=== PATIENT | female | born 1995 ===

== ENCOUNTER 2020-11-24 11:21 | Emergency (ER) | payer OTHER, SELFPAY ==
[2020-11-24 11:32] VITALS: BP 133/76; PULSE 76; RESP 20; TEMP 36.5; O2SAT 98; BMI 45.9
--- NOTE | 2020-11-24 11:38 | ED.CHESTPAIN ---
HPI - Chest Pain General Chief Complaint: Chest Pain Stated Complaint: chest pain Time Seen by Provider: 11/24/20 11:38 Source: patient Mode of arrival: ambulatory Limitations: no limitations History of Present Illness HPI narrative: 25-year-old female who reports history of pulmonary embolism diagnosed several months back at [facility] she was started on Eliquis b.i.d. states she was taking as instructed she saw her primary care doctor last week advised her to take Eliquis once a day instead of twice a week and since then she has been having pain in the left-sided chest. States she is worried that she might have another blood clot. Pain is reproducible. Does report that she is relatively anxious about changing her dose. MD complaint: chest pain Onset (ago): week(s) Timing of current episode: episodic Prior episodes: Yes Pain location: left chest Pain radiation: none Severity: mild Quality: tightness Treatment prior to arrival: none Related Data Home Medications Medication Instructions Recorded Confirmed apixaban 5 mg PO BID 11/24/20 11/24/20 Allergies Allergy/AdvReac Type Severity Reaction Status Date / Time almond [ALMONDS] Allergy Severe THROAT Verified 11/24/20 13:59 SWELLING moore [CHERRIES] Allergy Mild ITCHY Verified 11/24/20 13:59 methylphenidate Allergy Unknown UNKNOWN Verified 11/24/20 13:59 [From RITALIN] Review of Systems Review of Systems: Constitutional: No Weight loss, No Fever, No Chills, No Night Sweats, No Fatigue, No Malaise ENT/Mouth: No Hearing loss, No Ear Pain, No Nasal Congestion, No Sinus Pain, No Hoarseness, No sore throat, No Rhinorrhea, No Swallowing Difficulty Eyes: No Eye Pain, No Swelling, No Redness, No Foreign Body, No Discharge, No Vision Changes Cardiovascular: + Chest Pain, No SOB, No Dyspnea on Exertion, No Orthopnea, No Edema, No Palpitations Respiratory: No Cough, No Sputum, No Wheezing, No Smoke Exposure, No Dyspnea Gastrointestinal: No Nausea, No Vomiting, No Diarrhea, No Constipation, No abdominal Pain Genitourinary: no irregular bleeding, No Dysuria, No Urinary Frequency, No Hematuria, No Urinary Incontinence, No Urgency, No Flank Pain Musculoskeletal: No joint pain, No Myalgias, No Joint Swelling Skin: No Skin Lesions, No rash Neuro: No Weakness, No Numbness, No Paresthesias, No Loss of Consciousness, No Dizziness, No Headache Psych: + Anxiety/Panic, No Depression, No SI/HI/AH/VH, No Social Issues Heme/Lymph: No Bruising, No Bleeding,No Lymphadenopathy Endocrine: No Polyuria, No Polydipsia, No Temperature Intolerance Yes all other systems are reviewed and are negative [facility] Past Medical History Medical History (Updated 11/24/20 @ 15:17 by Dutch Castillo NP) Asthma Endometriosis Pulmonary embolism Social History Social History Alcohol intake: never Smoking Status: Never smoker Use of substances other than those prescribed or required for medical reasons: No Advance Directives: No Advance Directives Information Provided: No Physical Exam Vital Signs: Vital Signs: Last Vital Signs Temp 97.7 F 11/24/20 11:32 Pulse 81 11/24/20 13:57 Resp 20 11/24/20 13:57 BP 138/82 11/24/20 13:57 Pulse Ox 97 11/24/20 13:57 Body Mass Index 45.9 Reviewed Const: General: cooperative and healthy appearing; No acute distress or intoxicated appearing Nutritional Appearance: average body habitus Orientation/consciousness: patient oriented x3 HENMT: Head: Yes normal to inspection Ears: hearing grossly normal bilaterally Eyes: General: appearance normal, both eyes and all related structures Visual Gillespie: normal visual gillespie by confrontation Neck: Neck: Yes normal visual inspection, No positive Brudzinski's sign, No positive Kernig's sign and No tender Thyroid: Thyroid normal Chest: Chest palpation & inspection: normal inspection of the chest Resp: Effort & Inspection: normal respiratory effort Auscultation: clear to auscultation bilaterally Cardio: Jugular venous distension: no JVD Rhythm: regular rhythm Heart sounds: S1 normal heart sound present and S2 normal heart sound present GI: Inspection: Yes normal to inspection Percussion: Yes normal to percussion Auscultation: normal bowel sounds : General: Yes no CVA tenderness Back/Spine/Pelvis: Back: no CVA tenderness Skin: General skin exam: no rashes or lesions noted Neuro: General: patient oriented x3 Extrem: General: Yes normal to inspection MDM - Chest Pain MDM Narrative Medical decision making narrative: Has been resting comfortable. Normal sinus rhythm on bedside monitor. Labs unremarkable. Troponin negative. CTA of the chest done given her prior history unchanged her Eliquis and this was negative. Will continue her and suggested dose and follow up with her primary care doctor for therapy management. Offers no other complaints. Stable for discharge. Differential Diagnosis Differential diagnosis: Likely atypical chest pain, costochondritis and chest pain; Unlikely fracture of rib, pneumothorax, stable angina, unstable angina pectoris, st elevation myocardial infarction and biliary colic Differential diagnosis: Pulmonary embolism Medical Records Data Attestation: I reviewed the patient's medical records. Lab Data Attestation: I reviewed the patient's lab results. Result diagrams: 11/24/20 12:24 11/24/20 12:24 Labs: Lab Results 11/24/20 11/24/20 11/24/20 Range/Units 12:22 12:22 12:24 WBC 6.2 (4.8-10.8) X10*3/uL RBC 4.68 (4.20-5.50) X10*6/uL Hgb 13.2 (12.0-16.0) g/dl Hct 41.4 (37-47) % MCV 88.5 (80-98) fL MCH 28.2 (27.0-33.0) pg MCHC 31.9 (31.0-35.0) g/dl RDW 12.3 (11.0-16.0) % Plt Count 279 (160-400) X10*3/uL MPV 10.6 (9.4-12.3) fL Immature Gran % (Auto) 0.2 (0.0-0.4) % Neut % (Auto) 56.9 (45-73) % Lymph % (Auto) 34.6 (20-40) % [place] % (Auto) 6.7 (2-11) % Eos % (Auto) 1.3 (0-4) % Baso % (Auto) 0.3 (0-2) % Lymph # (Auto) 2.2 (1.2-4.9) X10*3/uL [place] # (Auto) 0.4 (0.1-1.2) X10*3/uL Eos # (Auto) 0.1 (0.0-0.4) X10*3/uL Baso # (Auto) 0.0 (0.0-0.2) X10*3/uL Abs Immat Gran (auto) 0.01 (0.00-0.03) X10*3/uL Absolute Neuts (auto) 3.6 (2.0-8.3) X10*3/uL Absolute Nucleated RBC 0.000 (0.0-0.012) X10*3/uL Nucleated RBC % (auto) 0.0 (0.0-0.2) /100WBC PT (10.8-13.0) SEC INR (0.9-1.1) APTT (24.1-38.0) SEC Sodium (135-145) mmol/L Potassium (3.3-5.1) mmol/l Chloride (96-108) mmol/L Carbon Dioxide (22-29) mmol/L Anion Gap (12-20) BUN (9-16) mg/dL Creatinine (0.5-1.4) mg/dL Estim Creat Clear Calc Estimated GFR Random Glucose (60-115) mg/dL Calcium (8.4-10.2) mg/dL Total Bilirubin (0.0-1.0) mg/dL AST (5-31) U/L ALT (0-31) U/L Alkaline Phosphatase (39-117) U/L Troponin I High Sens (<3.5-17.0) ng/L Total Protein (6.5-8.0) g/dL Albumin (3.5-5.0) g/dL Urine Color YELLOW Urine Appearance HAZY Urine pH 5.5 (5.0-8.0) Ur Specific [place] >= 1.030 H (1.005-1.025) Urine Protein NEG (NEG-TRACE) MG/DL Urine Glucose (UA) NEG (NEG) MG/DL Urine Ketones NEG (NEG) MG/DL Urine Blood NEG (NEG) Urine Nitrite NEG (NEG) Ur Leukocyte Esterase NEG (NEG) Urine RBC 0-2 (0) /HPF Urine WBC 0-2 (0-4) /HPF Ur Squamous Epith Cells TRACE /LPF Urine Bacteria NONE /LPF Urine Mucus 2+ /LPF Urine Test NEGATIVE (NEGATIVE) COVID-19 (OSCAR) Negative (Negative) COVID-19 Clin Com See Note 11/24/20 11/24/20 11/24/20 Range/Units 12:24 12:24 12:24 WBC (4.8-10.8) X10*3/uL RBC (4.20-5.50) X10*6/uL Hgb (12.0-16.0) g/dl Hct (37-47) % MCV (80-98) fL MCH (27.0-33.0) pg MCHC (31.0-35.0) g/dl RDW (11.0-16.0) % Plt Count (160-400) X10*3/uL MPV (9.4-12.3) fL Immature Gran % (Auto) (0.0-0.4) % Neut % (Auto) (45-73) % Lymph % (Auto) (20-40) % [place] % (Auto) (2-11) % Eos % (Auto) (0-4) % Baso % (Auto) (0-2) % Lymph # (Auto) (1.2-4.9) X10*3/uL [place] # (Auto) (0.1-1.2) X10*3/uL Eos # (Auto) (0.0-0.4) X10*3/uL Baso # (Auto) (0.0-0.2) X10*3/uL Abs Immat Gran (auto) (0.00-0.03) X10*3/uL Absolute Neuts (auto) (2.0-8.3) X10*3/uL Absolute Nucleated RBC (0.0-0.012) X10*3/uL Nucleated RBC % (auto) (0.0-0.2) /100WBC PT 15.1 H (10.8-13.0) SEC INR 1.3 H (0.9-1.1) APTT 41.7 H (24.1-38.0) SEC Sodium 141 (135-145) mmol/L Potassium 4.3 (3.3-5.1) mmol/l Chloride 104 (96-108) mmol/L Carbon Dioxide 28 (22-29) mmol/L Anion Gap 13 (12-20) BUN 16 (9-16) mg/dL Creatinine 0.81 (0.5-1.4) mg/dL Estim Creat Clear Calc 121.9 Estimated GFR > 60 Random Glucose 114 (60-115) mg/dL Calcium 8.9 (8.4-10.2) mg/dL Total Bilirubin 1.1 H (0.0-1.0) mg/dL AST 36 H (5-31) U/L ALT 51 H (0-31) U/L Alkaline Phosphatase 61 (39-117) U/L Troponin I High Sens < 3.5 (<3.5-17.0) ng/L Total Protein 6.6 (6.5-8.0) g/dL Albumin 3.7 (3.5-5.0) g/dL Urine Color Urine Appearance Urine pH (5.0-8.0) Ur Specific [place] (1.005-1.025) Urine Protein (NEG-TRACE) MG/DL Urine Glucose (UA) (NEG) MG/DL Urine Ketones (NEG) MG/DL Urine Blood (NEG) Urine Nitrite (NEG) Ur Leukocyte Esterase (NEG) Urine RBC (0) /HPF Urine WBC (0-4) /HPF Ur Squamous Epith Cells /LPF Urine Bacteria /LPF Urine Mucus /LPF Urine Test (NEGATIVE) COVID-19 (OSCAR) (Negative) COVID-19 Clin Com Imaging Data CT chest PE rule out: Radiologist's impression: José Miguel Rasmussen 25 F [address] Scan ReportSigned Patient: Benji Rasmussen#: [id number]: 1995Acct:[id number]/Sex: 25 / FADM Date: 11/24/20Loc: [address]: Ordering Physician: Dutch Castillo NP Date of Service: 11/24/20 Procedure(s): CT angio chest PE protocol Accession Number(s): [id number] 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 Subsequently, multidetector volumetric imaging was performed from the thoracic inlet to below the diaphragms following the administration of 65 mL Omnipaque 350 intravenous contrast. No contrast reaction reported Sagittal, coronal, and MIP oblique sagittal reformatted images were obtained on the CT workstation, uploaded to PACS, and reviewed. This CT examination was performed using dose optimization techniques as appropriate, variously including the following: *Automated exposure control *Adjustment of mA and/or kV according to patient size (this includes techniques or standardized protocols for targeted exams where dose is matched to indication/reason for exam; i.e. extremities or head) *Use of iterative reconstruction technique Total exam dose-length product 4-4 mGy-cm FINDINGS: QUALITY OF STUDY/CONTRAST BOLUS: Satisfactory. PULMONARY ARTERIES: No central or segmental pulmonary emboli. THORACIC AORTA: No aneurysm or dissection. LUNG: No focal consolidation, nodules or masses. PLEURA: No pleural effusion or pneumothorax. MEDIASTINUM: Normal heart size. No pericardial effusion. No hilar or mediastinal lymphadenopathy. No evidence of septal bowing or right heart strain. CHEST WALL/AXILLA: No axillary or internal mammary lymphadenopathy. OSSEOUS STRUCTURES: No acute or suspicious osseous abnormality. UPPER ABDOMEN: The liver and spleen are not completely imaged but appear prominent. No reflux of contrast into the hepatic veins to suggest elevated right heart pressures. CT/CT angio chest PE protocol IMPRESSION: No evidence of pulmonary embolism. VTE: negative Dictated By:LUIS EDUARDO CORDERO MDSigned By:<Electronically signed by LUIS EDUARDO CORDERO MD in OV>11/24/20 1411 DD/ 1139TD/TT: Data Communications Technician: KANDACE ECG Data ECG #1: Interpretation: Normal sinus rhythm Normal ECG When compared with ECG of 19-APR-2009 09:57, PREVIOUS ECG IS PRESENT Discharge Plan Discharge Clinical Impression: Atypical chest pain Patient Disposition: Home, Self-Care Instructions: Chest Pain (ED) Additional Instructions: Chest CT SCAN did not show evidence of pulmonary embolism. Taking medication prescribed Follow up with primary care doctor as planned Return if any concerns or worsening symptoms Thank you Prescriptions: No Action apixaban 5 mg Tablet 5 mg PO BID RF: 0 Referrals: Praneeth Corbett MD [Primary Care Provider] - 1 week
--- NOTE | 2020-11-24 11:40 | ECG_ITS ---
Test Reason : CHEST PAIN Blood Pressure : / mmHG Vent. Rate : 079 BPM Atrial Rate : 079 BPM P-R Int : 160 ms QRS Dur : 088 ms QT Int : 368 ms P-R-T Axes : 014 010 040 degrees QTc Int : 421 ms Normal sinus rhythm Normal ECG When compared with ECG of 19-APR-2009 09:57, No significant changes seen Referred By: Dutch Castillo Electronically Signed By:RANDALL DIEHL
[2020-11-24 12:30] VITALS: BP 123/77; PULSE 78; RESP 24; O2SAT 95
[2020-11-24 12:32] LABS: MANUAL DIFF FLAG NO
[2020-11-24 12:40] LABS: Basophils Percent Auto 0.3 % (0-2); Eosinophils Absolute Auto 0.1 X10*3/uL (0.0-0.4); Eosinophils Percent Auto 1.3 % (0-4); Hematocrit 41.4 % (37-47); Hemoglobin 13.2 g/dl (12.0-16.0); Imm Gran Abs Auto 0.01 X10*3/uL (0.00-0.03); Imm Gran Pct Auto 0.2 % (0.0-0.4); Lymphocytes Absolute Auto 2.2 X10*3/uL (1.2-4.9); Lymphocytes Percent Auto 34.6 % (20-40); Mean Corpuscular HGB Conc 31.9 g/dl (31.0-35.0); Mean Corpuscular Hemoglobin 28.2 pg (27.0-33.0); Mean Corpuscular Volume 88.5 fL (80-98); Mean Platelet Volume 10.6 fL (9.4-12.3); Monocytes Absolute Auto 0.4 X10*3/uL (0.1-1.2); Monocytes Percent Auto 6.7 % (2-11); Neutrophils Absolute Auto 3.6 X10*3/uL (2.0-8.3); Neutrophils Percent Auto 56.9 % (45-73); Platelet Count 279 X10*3/uL (160-400); Red Blood Count 4.68 X10*6/uL (4.20-5.50); Red Cell Distribution Width 12.3 % (11.0-16.0); White Blood Count 6.2 X10*3/uL (4.8-10.8)
[2020-11-24 12:45] LABS: INTERNATIONAL NORM RATIO 1.3 (0.9-1.1); Prothrombin Time 15.1 SEC (10.8-13.0)
[2020-11-24 12:47] LABS: Partial Thromboplastin Time 41.7 SEC (24.1-38.0)
[2020-11-24 12:56] LABS: Glucose Urine UA NEG (NEG); Leukocyte Esterase Urine NEG (NEG); Nitrite Urine NEG (NEG); PH 5.5 (5.0-8.0); Specific Gravity - Urine >= 1.030 (1.005-1.025); Urine Blood NEG (NEG); Urine Ketones NEG (NEG); Urine Protein NEG (NEG-TRACE)
[2020-11-24 12:57] LABS: Appearance Urine HAZY; Color Urine YELLOW
[2020-11-24 12:58] LABS: UPreg QC Valid YES; Urine Pregnancy NEGATIVE (NEGATIVE)
[2020-11-24 13:00] LABS: COVID-19 Test Negative (Negative); IDNOW Serial# 9DD0AD1C
[2020-11-24 13:07] LABS: Mucus Urine 2+ /LPF; RBC Urine 0-2 /HPF (0); Squamous Epithelial Cell Urine TRACE /LPF; WBC Urine 0-2 /HPF (0-4)
[2020-11-24 13:18] LABS: Glucose Random 114 mg/dL (60-115)
[2020-11-24 13:19] LABS: Alanine Aminotransferase 51 U/L (0-31); Albumin Level 3.7 g/dL (3.5-5.0); Alkaline Phosphatase 61 U/L (39-117); Anion Gap 13 (12-20); Aspartate Amino Transferase 36 U/L (5-31); Bilirubin Total 1.1 mg/dL (0.0-1.0); Blood Urea Nitrogen 16 mg/dL (9-16); Calcium 8.9 mg/dL (8.4-10.2); Carbon Dioxide 28 mmol/L (22-29); Chloride 104 mmol/L (96-108); Creatinine Clr Calc Pharmacy 121.9; Estimated Glomerular Filt Rate > 60; Potassium 4.3 mmol/l (3.3-5.1); Sodium 141 mmol/L (135-145); Total Protein 6.6 g/dL (6.5-8.0); Troponin-I High Sensitivity < 3.5 ng/L (<3.5-17.0)
--- NOTE | 2020-11-24 13:56 | PC.NURSE ---
Awaiting results of CTA. Pt appears comfortable at this time. VSS
[2020-11-24 13:57] VITALS: BP 138/82; PULSE 81; RESP 20; O2SAT 97
[2020-11-24] MEDS: iohexoL 350 MG/ML 100 ML INFUS..BTL 65 ML IV (13:58)
== END 2020-11-24 15:37 | disposition home or self-care (01) ==
PROVIDERS: Nurse Practitioner Primary Care; Emergency Provider Emergency Medicine; PCP Pediatrics
DX: R07.89 Other chest pain (principal); Z20.822 Contact with and (suspected) exposure to COVID-19; Z79.899 Other long term (current) drug therapy
CPT/HCPCS: 36415; 71275; 80053; 81001; 81025; 84484; 85025; 85610; 85730; 87635; 93005; 99284; Q9967

== ENCOUNTER 2021-03-18 09:49 | Emergency (ER) | payer MEDICAID, SELFPAY ==
--- NOTE | ~2021-03-18 | XR_ITS ---
EXAMINATION: XR CHEST CLINICAL INFORMATION: Weakness COMPARISON: Previous chest CTA November 2020 TECHNIQUE: Frontal view of the chest was obtained. FINDINGS: The cardiac and mediastinal contours are normal. The lung volumes are low. The lungs are clear. There is no pleural effusion or pneumothorax. Bony structures are unremarkable. XR/XR chest 1V IMPRESSION: No evidence for acute disease in the chest.
--- NOTE | 2021-03-18 10:12 | ECG_ITS ---
Test Reason : SOB Blood Pressure : / mmHG Vent. Rate : 083 BPM Atrial Rate : 083 BPM P-R Int : 168 ms QRS Dur : 090 ms QT Int : 366 ms P-R-T Axes : 044 000 038 degrees QTc Int : 430 ms Normal sinus rhythm Normal ECG When compared with ECG of 24-NOV-2020 12:09, No significant change was found Referred By: Kezia Gerber Electronically Signed By:ELISE CIFUENTES MD
--- NOTE | 2021-03-18 10:14 | ED.WEAKNESS ---
HPI - Weakness General Chief complaint: Dyspnea Stated complaint: MULTIP COMPLAINTS Time Seen by Provider: 03/18/21 10:02 Source: patient Mode of arrival: ambulatory Limitations: no limitations History of Present Illness HPI Narrative: 25 yo female with hx of PE - on eliquis did miss one day 2 weeks ago was at work this AM - felt shaky, ate breakfast felt short of breath in her mask, staff checked HR in 90s, and BP 140/90 Complaint: generalized weakness Onset (ago): hour(s) (last hour) Duration: now resolved Location: E and RUE Migration: none Severity: moderate Quality: tingling Relieving factors: none Exacerbating factors: none Associated symptoms: other (weakness, shortness of breath, rapid HR in 90s) Related Data Home Medications Medication Instructions Recorded Confirmed apixaban 5 mg PO BID 11/24/20 11/24/20 Allergies Allergy/AdvReac Type Severity Reaction Status Date / Time almond [ALMONDS] Allergy Severe THROAT Verified 03/18/21 10:50 SWELLING moore [CHERRIES] Allergy Mild ITCHY Verified 03/18/21 10:50 methylphenidate Allergy Unknown UNKNOWN Verified 03/18/21 10:50 [From RITALIN] Review of Systems Review of Systems: Constitutional : No Weight loss, No Fever, No Chills ENT/Mouth : No sore throat, No Rhinorrhea Eyes: No Eye Pain, No Swelling Cardiovascular : no Chest Pain, pos SOB, no Dyspnea on Exertion, No Orthopnea, No Edema, No Palpitations Respiratory : No Cough, No Sputum Gastrointestinal : pos Nausea, No Vomiting, No Diarrhea, No abdominal Pain, No Hematochezia, No Melena Genitourinary : No Dysuria, No Urinary Frequency Musculoskeletal : No joint pain, No Myalgias, No Joint Swelling Skin : No Skin Lesions, No rash Neuro : pos Weakness, No Numbness, No Dizziness, No Headache, pos tingling Psych : No Anxiety/Panic, No Depression Heme/Lymph: No Bruising, No Lymphadenopathy Endocrine : No Polyuria, No Polydipsia All other systems reviewed and are negative PMFSH Past Medical History Attestation statement: The following information was validated with the patient. Medical History Asthma Endometriosis Pulmonary embolism Surgical History History of placement of ear tubes Family History Family History (Updated 12/01/20 @ 12:08 by Deidra Powell REPLACED BY [facility]) Father No problems noted. Mother No problems noted. Social History Social History Alcohol intake: never Smoking Status: Never smoker Use of substances other than those prescribed or required for medical reasons: No Advance Directives: No Advance Directives Information Provided: No Patient : No Physical Exam Vital Signs: Vital Signs: Last Vital Signs Temp 97.7 F 03/18/21 10:46 Pulse 80 03/18/21 11:15 Resp 20 03/18/21 10:46 BP 100/59 L 03/18/21 11:15 Pulse Ox 98 03/18/21 10:46 Body Mass Index 44.4 Appearance: Alert. Oriented X3. No acute distress. Eyes: Pupils equal, round and reactive to light. ENT: Pharynx normal. Neck: Normal inspection. Neck supple. CVS: Normal heart rate and rhythm. Pulses normal. Respiratory: No respiratory distress. Breath sounds normal. Abdomen: Soft and nontender. Skin: Skin warm and dry. Normal skin color. Normal skin turgor. Extremities: No lower extremity edema. No calf ttp Neuro: Oriented X 3. No motor deficit. No sensory deficit. Course Course Course Narrative: no acute findings at baseline stable for DC MDM - Weakness MDM Narrative Medical decision making narrative: 25 yo female felt weird at work tingling hands, weak all over, HR 90 BP 140, doubt ACS/PE did miss one dose but that was 2 weeks ago - at this time not toxic on her phone, HR in 60s BP stable - EKG, labs, ortho VS if negative will DC home with PCP follow up Lab Data Result diagrams: 03/18/21 10:38 03/18/21 10:38 Labs: Lab Results 03/18/21 03/18/21 03/18/21 Range/Units 10:38 10:38 10:38 WBC 7.5 (4.8-10.8) X10*3/uL RBC 5.06 (4.20-5.50) X10*6/uL Hgb 14.3 (12.0-16.0) g/dl Hct 43.9 (37-47) % MCV 86.8 (80-98) fL MCH 28.3 (27.0-33.0) pg MCHC 32.6 (31.0-35.0) g/dl RDW 14.5 (11.0-16.0) % Plt Count 239 (160-400) X10*3/uL MPV 11.0 (9.4-12.3) fL Immature Gran % (Auto) 0.1 (0.0-0.4) % Neut % (Auto) 52.9 (45-73) % Lymph % (Auto) 36.2 (20-40) % [place] % (Auto) 8.5 (2-11) % Eos % (Auto) 1.9 (0-4) % Baso % (Auto) 0.4 (0-2) % Lymph # (Auto) 2.7 (1.2-4.9) X10*3/uL [place] # (Auto) 0.6 (0.1-1.2) X10*3/uL Eos # (Auto) 0.1 (0.0-0.4) X10*3/uL Baso # (Auto) 0.0 (0.0-0.2) X10*3/uL Abs Immat Gran (auto) 0.01 (0.00-0.03) X10*3/uL Absolute Neuts (auto) 4.0 (2.0-8.3) X10*3/uL Absolute Nucleated RBC 0.000 (0.0-0.012) X10*3/uL Nucleated RBC % (auto) 0.0 (0.0-0.2) /100WBC PT 13.7 H (10.8-13.0) SEC INR 1.2 H (0.9-1.1) APTT 43.8 H (24.1-38.0) SEC Sodium 137 (135-145) mmol/L Potassium 4.3 (3.3-5.1) mmol/L Chloride 107 (96-108) mmol/L Carbon Dioxide 26 (22-29) mmol/L Anion Gap 8 L (12-20) BUN 23 H (9-16) mg/dL Creatinine 0.72 (0.5-1.4) mg/dL Estim Creat Clear Calc 139.7 Estimated GFR > 60 Random Glucose 84 (60-115) mg/dL Calcium 8.9 (8.4-10.2) mg/dL Magnesium 2.2 (1.6-2.6) mg/dL Total Bilirubin 0.9 (0.0-1.0) mg/dL Direct Bilirubin 0.3 (0.0-0.5) mg/dL AST 21 D (5-31) U/L ALT 34 H (0-31) U/L Alkaline Phosphatase 67 (39-117) U/L Troponin I High Sens (<3.5-17.0) ng/L Total Protein 7.0 (6.5-8.0) g/dL Albumin 4.1 (3.5-5.0) g/dL Lipase 32 (8-78) U/L TSH 1.26 (0.32-4.0) uIU/mL 03/18/21 Range/Units 10:38 WBC (4.8-10.8) X10*3/uL RBC (4.20-5.50) X10*6/uL Hgb (12.0-16.0) g/dl Hct (37-47) % MCV (80-98) fL MCH (27.0-33.0) pg MCHC (31.0-35.0) g/dl RDW (11.0-16.0) % Plt Count (160-400) X10*3/uL MPV (9.4-12.3) fL Immature Gran % (Auto) (0.0-0.4) % Neut % (Auto) (45-73) % Lymph % (Auto) (20-40) % [place] % (Auto) (2-11) % Eos % (Auto) (0-4) % Baso % (Auto) (0-2) % Lymph # (Auto) (1.2-4.9) X10*3/uL [place] # (Auto) (0.1-1.2) X10*3/uL Eos # (Auto) (0.0-0.4) X10*3/uL Baso # (Auto) (0.0-0.2) X10*3/uL Abs Immat Gran (auto) (0.00-0.03) X10*3/uL Absolute Neuts (auto) (2.0-8.3) X10*3/uL Absolute Nucleated RBC (0.0-0.012) X10*3/uL Nucleated RBC % (auto) (0.0-0.2) /100WBC PT (10.8-13.0) SEC INR (0.9-1.1) APTT (24.1-38.0) SEC Sodium (135-145) mmol/L Potassium (3.3-5.1) mmol/L Chloride (96-108) mmol/L Carbon Dioxide (22-29) mmol/L Anion Gap (12-20) BUN (9-16) mg/dL Creatinine (0.5-1.4) mg/dL Estim Creat Clear Calc Estimated GFR Random Glucose (60-115) mg/dL Calcium (8.4-10.2) mg/dL Magnesium (1.6-2.6) mg/dL Total Bilirubin (0.0-1.0) mg/dL Direct Bilirubin (0.0-0.5) mg/dL AST (5-31) U/L ALT (0-31) U/L Alkaline Phosphatase (39-117) U/L Troponin I High Sens < 3.5 (<3.5-17.0) ng/L Total Protein (6.5-8.0) g/dL Albumin (3.5-5.0) g/dL Lipase (8-78) U/L TSH (0.32-4.0) uIU/mL ECG Data Attestation: I personally reviewed and interpreted this ECG as follows: ECG interpretation date: 03/18/21 ECG interpretation time: 10:27 Interpretation: Rate: 83 Rhythm: NSR Blain: left Normal P waves. Normal JARRETT. Normal QRS complex. ST T wave : normal no LOLA qTC: normal prior studies: no acute ischemia The study has been interpreted contemporaneously by me. . Discharge Plan Discharge Clinical Impression: Heart palpitations, Weakness Patient Disposition: Home, Self-Care Instructions: Heart Palpitations (ED), Weakness (ED) Additional Instructions: return to ED for any worsening symptoms or concerns Prescriptions: No Action apixaban 5 mg Tablet 5 mg PO BID RF: 0 Referrals: Praneeth Corbett MD [Primary Care Provider] - 2 days (sunday if not better) Stand Alone Forms: Work/School Release
[2021-03-18 10:43] LABS: MANUAL DIFF FLAG NO
[2021-03-18 10:46] VITALS: BP 125/71; PULSE 75; RESP 20; TEMP 36.5; O2SAT 98; BMI 44.4
[2021-03-18 10:47] LABS: Basophils Percent Auto 0.4 % (0-2); Eosinophils Absolute Auto 0.1 X10*3/uL (0.0-0.4); Eosinophils Percent Auto 1.9 % (0-4); Hematocrit 43.9 % (37-47); Hemoglobin 14.3 g/dl (12.0-16.0); Imm Gran Abs Auto 0.01 X10*3/uL (0.00-0.03); Imm Gran Pct Auto 0.1 % (0.0-0.4); Lymphocytes Absolute Auto 2.7 X10*3/uL (1.2-4.9); Lymphocytes Percent Auto 36.2 % (20-40); Mean Corpuscular HGB Conc 32.6 g/dl (31.0-35.0); Mean Corpuscular Hemoglobin 28.3 pg (27.0-33.0); Mean Corpuscular Volume 86.8 fL (80-98); Monocytes Absolute Auto 0.6 X10*3/uL (0.1-1.2); Monocytes Percent Auto 8.5 % (2-11); Neutrophils Percent Auto 52.9 % (45-73); Platelet Count 239 X10*3/uL (160-400); Red Blood Count 5.06 X10*6/uL (4.20-5.50); Red Cell Distribution Width 14.5 % (11.0-16.0); White Blood Count 7.5 X10*3/uL (4.8-10.8)
[2021-03-18 10:51] LABS: INTERNATIONAL NORM RATIO 1.2 (0.9-1.1); Prothrombin Time 13.7 SEC (10.8-13.0)
[2021-03-18 10:55] LABS: Partial Thromboplastin Time 43.8 SEC (24.1-38.0)
[2021-03-18 11:10] LABS: Alanine Aminotransferase 34 U/L (0-31); Albumin Level 4.1 g/dL (3.5-5.0); Alkaline Phosphatase 67 U/L (39-117); Anion Gap 8 (12-20); Aspartate Amino Transferase 21 U/L (5-31); Bilirubin Direct 0.3 mg/dL (0.0-0.5); Bilirubin Total 0.9 mg/dL (0.0-1.0); Blood Urea Nitrogen 23 mg/dL (9-16); Calcium 8.9 mg/dL (8.4-10.2); Carbon Dioxide 26 mmol/L (22-29); Chloride 107 mmol/L (96-108); Creatinine Clr Calc Pharmacy 139.7; Estimated Glomerular Filt Rate > 60; Glucose Random 84 mg/dL (60-115); Lipase 32 U/L (8-78); Magnesium 2.2 mg/dL (1.6-2.6); Potassium 4.3 mmol/L (3.3-5.1); Sodium 137 mmol/L (135-145)
[2021-03-18 11:12] LABS: Troponin-I High Sensitivity < 3.5 ng/L (<3.5-17.0)
[2021-03-18 11:15] VITALS: BP 100/59; PULSE 80
[2021-03-18 11:27] LABS: Thyroid Stimulating Hormone 1.26 uIU/mL (0.32-4.0)
== END 2021-03-18 12:03 | disposition home or self-care (01) ==
PROVIDERS: Emergency Provider Emergency Medicine; PCP Pediatrics
DX: R06.00 Dyspnea, unspecified (principal); R00.2 Palpitations; R53.1 Weakness; Z79.899 Other long term (current) drug therapy; Z86.711 Personal history of pulmonary embolism
CPT/HCPCS: 36415; 71045; 80048; 80076; 83690; 83735; 84443; 84484; 85025; 85610; 85730; 93005; 99284

== ENCOUNTER 2021-04-26 15:01 | Emergency (ER) | payer MEDICAID, SELFPAY ==
--- NOTE | ~2021-04-26 | XR_ITS ---
EXAMINATION: XR KNEE, RIGHT CLINICAL INFORMATION: Pain COMPARISON: None TECHNIQUE: Two views of the right knee. FINDINGS: Bones and soft tissues are normal. No fracture or joint effusion. Alignment is anatomic. Joint spaces are well maintained. No abnormal soft tissue calcification. XR/XR knee RT 2V IMPRESSION: Normal right knee.
[2021-04-26 15:16] VITALS: BP 129/77; PULSE 64; RESP 18; TEMP 37; O2SAT 99; BMI 43.9
--- NOTE | 2021-04-26 16:48 | ED.LOWEXIN ---
HPI - Extremity Injury (Lower) General Chief Complaint: Extremity Injury, Lower Stated Complaint: R KNEE INJ Time Seen by Provider: 04/26/21 16:48 History of Present Illness HPI Narrative: Patient complains of right knee pain after falling on it 3 days ago, she scraped her knee and banged her knee when she tripped and fell on a flat surface, no other injury no headache no neck pain no back pain no numbness no weakness no tingling no laceration Related Data Home Medications Medication Instructions Recorded Confirmed apixaban 5 mg PO BID 11/24/20 11/24/20 Previous Rx's Medication Instructions Recorded oxycodone 5 mg PO Q6H PRN #7 tab 04/26/21 Allergies Allergy/AdvReac Type Severity Reaction Status Date / Time almond [ALMONDS] Allergy Severe THROAT Verified 03/18/21 10:50 SWELLING moore [CHERRIES] Allergy Mild ITCHY Verified 03/18/21 10:50 methylphenidate Allergy Unknown UNKNOWN Verified 03/18/21 10:50 [From RITALIN] Review of Systems Review of Systems: positive for right knee pain after a fall Negatives are no fever no chills no dizziness no weakness no headache no vision change no neck pain no numbness weakness or tingling no back pain no other extremity injury Yes all other systems are reviewed and are negative PMFSH Past Medical History Source: nursing notes reviewed Medical History Asthma Endometriosis Pulmonary embolism Surgical History History of placement of ear tubes Family History Family History (Updated 12/01/20 @ 12:08 by LITA Shah) Father No problems noted. Mother No problems noted. Social History Social History Alcohol intake: never Advance Directives: No Advance Directives Information Provided: No Patient : No Physical Exam Vital Signs: Vital Signs: Last Vital Signs Temp 98.6 F 04/26/21 15:16 Pulse 64 04/26/21 15:16 Resp 18 04/26/21 15:16 BP 129/77 04/26/21 15:16 Pulse Ox 99 04/26/21 15:16 Body Mass Index 43.9 general appearance is no acute distress Head is normocephalic atraumatic Neck is supple nontender Respiratory no distress Extremities the right knee has some abrasion some tenderness over the patella and some ecchymosis, there is a full range of motion but it is uncomfortable and the patient is walking with a limp, neurovascular distal no lacerations no redness no warmth no effusion Other extremities normal Course Course Course Narrative: x-ray was normal of the right knee, and patient is advised to follow with orthopedics if not improved within a week Discharge Plan Discharge Clinical Impression: Abrasion of knee, right, Contusion of knee, right Patient Disposition: Home, Self-Care Additional Instructions: X-ray did not show any broken bone No sign of infection now Follow with orthopedist next week if needed Return any concerns, any sign of infection spreading redness worse pain and swelling discharge from wound red stripe up leg any worse condition Prescriptions: New oxycodone 5 mg tablet 5 mg PO Q6H PRN (Reason: pain) Qty: 7 RF: 0 No Action apixaban 5 mg Tablet 5 mg PO BID RF: 0 Referrals: Lovely Toro MD [Physician] - 2 days (Right knee injury) Stand Alone Forms: Work/School Release Interventions: ED Discharge Assessment Last Done: 04/26/21 17:27 Discharge Date/Time: 04/26/21 17:28
== END 2021-04-26 17:28 | disposition home or self-care (01) ==
PROVIDERS: Emergency Provider Emergency Medicine; PCP Pediatrics
DX: S80.01XA Contusion of right knee, initial encounter (principal); S80.211A Abrasion, right knee, initial encounter; W01.0XXA Fall on same level from slipping, tripping and stumbling without subsequent striking against object, initial encounter; Y93.9 Activity, unspecified; Y92.9 Unspecified place or not applicable; Y99.9 Unspecified external cause status
CPT/HCPCS: 73560; 99283

== ENCOUNTER 2022-06-01 14:04 | Emergency (ER) | payer OTHER, MEDICAID, SELFPAY ==
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
[2022-06-01 16:06] VITALS: BP 139/92; PULSE 72; RESP 18; TEMP 36; O2SAT 98; BMI 46.7
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
[2022-06-01] MEDS: Lidocaine 4 % Patch ADH..PATCH 1 PATCH TRANSDERMA (19:55)
[2022-06-01] MEDS: Ketorolac Tromethamine 15 MG/ML VIAL IM (19:55)
== END 2022-06-01 20:15 | disposition home or self-care (01) ==
PROVIDERS: Emergency Provider Emergency Medicine
DX: S13.4XXA Sprain of ligaments of cervical spine, initial encounter (principal); R51.9 Headache, unspecified; M54.2 Cervicalgia; V43.52XA Car driver injured in collision with other type car in traffic accident, initial encounter; R42 Dizziness and giddiness; Y93.9 Activity, unspecified; Y92.410 Unspecified street and highway as the place of occurrence of the external cause; Y99.9 Unspecified external cause status; Z79.899 Other long term (current) drug therapy
CPT/HCPCS: 70450; 72125; 96372; 99283; 99284; J1885

== ENCOUNTER → 2022-06-23 13:47 | Outpatient (BNVA) | payer OTHER, SELFPAY | PROVIDERS: Visit Provider Physician Assistant | DX: S05.02XA Injury of conjunctiva and corneal abrasion without foreign body, left eye, initial encounter (principal); X58.XXXA Exposure to other specified factors, initial encounter | CPT/HCPCS: 92002; 99203 ==

== ENCOUNTER 2022-07-13 14:11 | Outpatient (REF) | payer MEDICAID, SELFPAY ==
--- NOTE | ~2022-07-13 | MM_ITS ---
EXAMINATION: US DIAGNOSTIC ULTRASOUND BREAST, LEFT MM DIAGNOSTIC DIGITAL BREAST TOMOSYNTHESIS, BILATERAL CLINICAL INFORMATION: 26-year-old with palpable nodule anterior upper left breast for approximately 2 weeks. Subtle skin discoloration/ecchymosis overlying the area. Patient patient also provided history of recent spontaneous intermittent left nipple discharge (variable/green). No prior breast imaging. The lifetime risk of breast cancer based on the Tyrer-Cuzick Model is 23%. COMPARISON: None (current study represents initial baseline exam). TECHNIQUE: Targeted ultrasound is initially performed in anterior left breast with grayscale imaging and color Doppler without and with harmonics. Patient is able to point to area of palpable concern at time of imaging. After discussion of findings and additional history of nipple discharge, it was decided to perform additional imaging with bilateral breast tomosynthesis. Digital breast tomosynthesis is performed in both the craniocaudal and mediolateral oblique views along with computer-aided detection (CAD). Synthesized 2D images are generated from the tomosynthesis. FINDINGS: Ultrasound: There is a superficial intramammary node at site of palpable concern 11:00 position measuring under 1 cm with normal chirag architecture and color flow pattern. There is no skin thickening or edema tracking in soft tissue planes. No focal duct ectasia. No other cystic or solid mass. Mammography: The breasts are almost entirely fatty (ACR BI-RADS breast composition Category a). Background stromal markings appearing normal. There is no skin thickening or coarsening of the Yeison's ligaments. There is no significant mass or architectural abnormality or abnormal calcifications. The axilla are unremarkable. There are bilateral nipple piercings. Left breast has a intramammary node anterior breast corresponding to the area of palpable concern with normal central fatty hilus and measuring under 1 cm in greatest dimension. This also corresponds to the finding on ultrasound. Results are discussed with the patient at time of visit. MM/MM tomosynthesis diagnostic BI IMPRESSION: -No mammographic evidence of malignancy or inflammatory changes. -Intramammary node anterior upper left breast at site of clinically palpable concern. ASSESSMENT: BI-RADS 2: Benign RECOMMENDATION: 1. Patient should be managed based on the clinical impression. If palpable concern is persistent or increasing, then consider surgical consult. Decision to proceed with biopsy should be based on clinical grounds and degree of clinical concern. 2. If there is persistent spontaneous unexplained unilateral nipple discharge, further imaging with breast MRI without and with gadolinium contrast may be considered. If there is bilateral spontaneous nipple discharge, then correlation with laboratories with the recommended. 3. Otherwise, routine annual screening mammography, beginning age 40, or earlier as clinical risk factors warrant. This patient's information was entered into a reminder system with a target due date for their next mammogram.
== END 2022-07-13 14:12 | disposition home or self-care (01) ==
LOC: HO.MAMMO 14:11
PROVIDERS: PCP Emergency Medicine; Visit Provider Emergency Medicine
DX: N63.22 Unspecified lump in the left breast, upper inner quadrant (principal)
CPT/HCPCS: 76642; 77062; 77066

== ENCOUNTER 2022-07-13 14:41 | Outpatient (REF) | payer MEDICAID, SELFPAY | END 2022-07-13 14:42 | disposition home or self-care (01) | LOC: HO.MAMMO 14:41 | PROVIDERS: PCP Emergency Medicine; Visit Provider Emergency Medicine | DX: Z13.89 Encounter for screening for other disorder (principal) ==

== ENCOUNTER 2022-09-25 11:00 | Emergency (ER) | payer MEDICAID, SELFPAY ==
--- NOTE | ~2022-09-25 | US_ITS ---
EXAMINATION: US PELVIS CLINICAL INFORMATION: Right pelvic pain. Rule out ovarian cyst. COMPARISON: None TECHNIQUE: Ultrasound of the pelvis is performed using both transabdominal and transvaginal transducers along with Doppler. Transvaginal imaging is performed due to inadequate visualization transabdominally. FINDINGS: Uterus: The uterus is anteverted, anteflexed and measures 5.0 cm in length, 3.7 cm in AP and 4.4 cm in transverse dimension. The double wall endometrial thickness is 1.2 cm.. The uterus is smooth in contour and has normal myometrial echogenicity. No visible fibroid. There are small nabothian cysts in the cervix. Adnexa: Both ovaries are visualized. There is normal color flow to the adnexa. There is no ovarian torsion. There is no pelvic ascites or fluid collection. Right ovary measures 3.5 x 2.6 x 2.3 cm and volume 11.0 mL. There are small follicular cysts seen. Left ovary measures 4.7 x 2.3 x 2.5 cm and volume 14.2 mL. There are small follicular cysts seen. US/US pelvic and transvaginal IMPRESSION: 1. Small nabothian cysts in the cervix. 2. The uterus is unremarkable. 3. There are small follicular cysts seen in both ovaries. 4. There is no free fluid in the cul-de-sac.
--- NOTE | ~2022-09-25 | CT_ITS ---
EXAMINATION: CT ABDOMEN AND PELVIS WITHOUT CONTRAST CLINICAL INFORMATION: Right lower quadrant pain COMPARISON: None TECHNIQUE: Multidetector volumetric imaging was performed from the superior aspect of the liver through the pubic symphysis. Sagittal and coronal reformatted images were obtained on the technologist's workstation. This CT examination was performed using dose optimization techniques as appropriate, variously including the following: *Automated exposure control *Adjustment of mA and/or kV according to patient size (this includes techniques or standardized protocols for targeted exams where dose is matched to indication/reason for exam; i.e. extremities or head) *Use of iterative reconstruction technique DLP: 1012 mGy-cm FINDINGS: LUNG BASES: The visualized lung bases are unremarkable. LIVER, GALLBLADDER, AND BILIARY TREE: The liver is normal in size, shape, and attenuation. No focal hepatic lesion or biliary ductal dilatation is present. The gallbladder is unremarkable with no evidence of radiopaque gallstones, gallbladder wall thickening, or obvious pericholecystic inflammatory changes. PANCREAS: Unremarkable. SPLEEN: Unremarkable. ADRENAL GLANDS: Unremarkable. KIDNEYS AND URETERS: The kidneys are normal in size, shape, and attenuation. No hydronephrosis, hydroureter, or calculi seen. No perinephric stranding. BLADDER: Unremarkable. GASTROINTESTINAL TRACT: Mild diverticulosis. The small and large bowel are otherwise unremarkable. The appendix is unremarkable. ABDOMINAL WALL: Small umbilical and supraumbilical hernia containing fat. LYMPH NODES: Normal. VASCULAR: Unremarkable. PELVIC VISCERA: Unremarkable. OSSEOUS STRUCTURES: Unremarkable. CT/CT abdomen pelvis wo IV con IMPRESSION: Mild diverticulosis of the colon. No evidence of diverticulitis. Normal appendix. Small umbilical and supraumbilical hernias containing fat. Fleischner guidelines were followed.
[2022-09-25 11:01] VITALS: BP 129/81; PULSE 73; RESP 16; TEMP 36.8; O2SAT 99; BMI 45.3
[2022-09-25 11:16] LABS: Hematocrit 46.4 % (37.0-47.0); Mean Corpuscular HGB Conc 32.3 g/dl (31.0-35.0); Mean Corpuscular Hemoglobin 29.3 pg (27.0-33.0); Mean Corpuscular Volume 90.6 fL (80.0-98.0); Mean Platelet Volume 11.1 fL (9.4-12.3); Platelet Count 222 X10*3/uL (160-400); Red Blood Count 5.12 X10*6/uL (4.20-5.50); Red Cell Distribution Width 12.6 % (11.0-16.0)
--- OUTSIDE RECORDS SUMMARY | 2022-09-25 11:25 | XMS_ITS | Continuity of Care Document ---
:1995 Author Organization [facility] Address [address] [place] [address]- Care Team Providers Name Role Phone Praneeth Corbett MD Primary Care Physician [place] [facility] [place] 02/17/21 - 03/19/21 [facility] [address] [place], [place] [address] Allergies, Adverse Reactions, Alerts Substance Reaction Severity Status Ritalin rash Active Cheatham rash Active oral itching Immunizations Given and Recorded Vaccine Date Status Refusal Reason tetanus/diphtheria/pertussis, acel(Tdap)1 02/23/21 Given 1Result Comment: [facility]# [id number] Medications albuterol CFC free 90 mcg/inh inhalation aerosol 2, puffs, Inhalation, 4 times a day, PRN, # 1 each, Refills 0, Tot. Refills 0, Maintenance, 10/11/2012:01:00 EST, Aerosol, Route to Pharmacy Electronically, [id number], [facility] #[id number], 157, cm, 08/31/20 15:49:00... Start Date: 10/11/20 Status: OrderedEliquis 5 mg oral tablet 1 tablet = 5 mg, By Mouth, 2 times a day, # 60 tablet, 11 Refills, Maintenance, 11/16/20 16:45:00 EST, Tablet, [facility]/pharmacy #[id number], Partial fill upon patient request if the prescription is for a schedule II opioid drug., 157, cm, 08/31/20 15:49:00 EDT,... Start Date: 11/16/20 Status: Orderedgabapentin 100 mg oral capsule 100 mg, 1, capsule, By Mouth, 3 times a day, PRN, # 21 capsule, Refills 0, Tot. Refills 0, Maintenance, Pain , Moderate, 10/15/20 17:12:00 EST, Route to Pharmacy Electronically, [facility] #[id number], Partial fill upon patient request if the pre... Start Date: 10/15/20 Stop Date: 10/22/20 Status: Orderedselenium sulfide 2.5% topical lotion See Instructions, Apply to the scalp, let sit for 10 minutes and then rinse. Use daily x 1 week, then once a week after that., # 1 each, 0 Refills, Maintenance, 08/13/20 13:17:00 EDT, [id number], Apply to the scalp, let sit for 10 minutes and... Start Date: 08/13/20 Status: OrderedtiZANidine 4 mg oral capsule 1 capsule = 4 mg, By Mouth, 3 times a day, # 30 capsule, 0 Refills, Maintenance, 11/29/20 16:07:00 EST, Capsule, [id number], Partial fill upon patient request if the prescription is for a schedule II opioid drug., 157, cm, 08/31/20 15:49:00 ED... Start Date: 11/29/20 Stop Date: 12/09/20 Status: OrderedZyrTEC 10 mg oral tablet 1 tablet = 10 mg, By Mouth, Daily, # 90 tablet, 1 Refills, Maintenance, 11/08/20 12:38:00 EST, Tablet, [id number], 157, cm, 08/31/20 15:49:00 EDT, Height, 121.6, kg, 01/21/19 23:22:00 EDT, Dry Weight Start Date: 11/08/20 Status: Ordered Problem List Condition Effective Dates Status Health Status Informant Anxiety(Confirmed) Active Adult BMI 45.0-49.9 kg/sq m(Confirmed) Active Irregular menses(Confirmed) Active Obesity(Confirmed) Active MARIO (obstructive sleep Active apnea)(Confirmed) PE (pulmonary Active thromboembolism)(Confirmed) Social History Social History Type Response Smoking Status Never (less than 100 in life time) entered on: 08/13/20 Sex
--- OUTSIDE RECORDS SUMMARY | 2022-09-25 11:25 | XMS_ITS | Continuity of Care Document ---
:1995 Author Organization [facility] Address [address] [place] [address]- Care Team Providers Name Role Phone Aric MAE, Praneeth Primary Care Physician [place] [facility] [place]): 11/16/20 - 12/16/20 [facility] [address] [place], [place] [address] Allergies, Adverse Reactions, Alerts Substance Reaction Severity Status Ritalin rash Active Cheatham rash Active oral itching Medications albuterol CFC free 90 mcg/inh inhalation aerosol 2, puffs, Inhalation, 4 times a day, PRN, # 1 each, Refills 0, Tot. Refills 0, Maintenance, 10/11/2012:01:00 EST, Aerosol, Route to Pharmacy Electronically, [id number], [facility] #[id number], 157, cm, 08/31/20 15:49:00... Start Date: 10/11/20 Status: OrderedEliquis 5 mg oral tablet 1 tablet = 5 mg, By Mouth, 2 times a day, # 60 tablet, 11 Refills, Maintenance, 11/16/20 16:45:00 EST, Tablet, [id number], Partial fill upon patient request if the prescription is for a schedule II opioid drug., 157, cm, 08/31/20 15:49:00 EDT,... Start Date: 11/16/20 Status: Orderedgabapentin 100 mg oral capsule 100 mg, 1, capsule, By Mouth, 3 times a day, PRN, # 21 capsule, Refills 0, Tot. Refills 0, Maintenance, Pain , Moderate, 10/15/20 17:12:00 EST, Route to Pharmacy Electronically, [facility] #[id number], Partial fill upon patient request if the [...] Refills, Maintenance, 11/29/20 16:07:00 EST, Capsule, [id number], Partial fill upon patient request if the [...] Condition Effective Dates Status Health Status Informant Adult BMI 45.0-49.9 kg/sq m(Confirmed) Active Irregular menses(Confirmed) Active Obesity(Confirmed) Active PE (pulmonary Active thromboembolism)(Confirmed) Social History Social History Type Response Smoking Status Never (less than 100 in life time) entered on: 08/13/20 Sex
--- OUTSIDE RECORDS SUMMARY | 2022-09-25 11:25 | XMS_ITS | Continuity of Care Document ---
:1995 Author Organization [facility] Address [address] [place] [address]- Care Team Providers Name Role Phone Praneeth Corbett MD Primary Care Physician Encounter [facility] [place](s): 11/29/20 - 12/06/20 [facility] [address] [place] [address] Encounter Diagnosis PE (pulmonary thromboembolism) (Discharge Diagnosis) - 11/29/20 Chest pain (Discharge Diagnosis) - 11/29/20 Attending Physician: Praneeth Corbett MD Allergies, Adverse Reactions, Alerts Substance Reaction Severity Status Ritalin rash Active Cheatham rash Active oral itching Medications albuterol CFC free 90 mcg/inh inhalation aerosol 2, puffs, Inhalation, 4 times a day, PRN, # 1 each, Refills 0, Tot. Refills 0, Maintenance, 10/11/2012:01:00 EST, Aerosol, Route to Pharmacy Electronically, [id number], [facility] #[id number], 157, cm, 08/31/20 15:49:00... Start Date: 10/11/20 Status: OrderedEliquis 5 mg oral tablet 1 tablet = 5 mg, By Mouth, 2 times a day, # 60 tablet, 11 Refills, Maintenance, 11/16/20 16:45:00 EST, Tablet, [facility]/pharmacy #[id number], Partial fill upon patient request if the prescription is for a schedule II opioid drug., 157, cm, 08/31/20 15:49:00 EDT,... Start Date: 11/16/20 Status: Orderedgabapentin 100 mg oral capsule 100 mg, 1, capsule, By Mouth, 3 times a day, PRN, # 21 capsule, Refills 0, Tot. Refills 0, Maintenance, Pain , Moderate, 10/15/20 17:12:00 EST, Route to Pharmacy Electronically, [facility] #[id number], Partial fill upon patient request if the [...] Refills, Maintenance, 11/29/20 16:07:00 EST, Capsule, [id number], Partial fill upon patient request if the [...] Active Obesity(Confirmed) Active PE (pulmonary Active thromboembolism)(Confirmed) Diagnosis Diagnosis Type Effective Dates Health Status Clinical In formant Service PE (pulmonary Discharge 11/29/20 thromboembolism) Diagnosis Chest pain Discharge 11/29/20 Diagnosis Social History Social History Type Response Smoking Status Never (less than 100 in life time) entered on: 08/13/20 Sex
--- OUTSIDE RECORDS SUMMARY | 2022-09-25 11:25 | XMS_ITS | Continuity of Care Document ---
:1995 Author Organization [facility] Address [address] [place] [address]- Care Team Providers Name Role Phone Dayna MAE, Lanny Primary Care Physician [place] [facility] [place] 12/30/[address] [address]- Attending Physician: Not on Staff, Attending MD Allergies, Adverse Reactions, Alerts Substance Reaction Severity Status Ritalin rash Active Cheatham rash Active oral itching Immunizations Given and Recorded Vaccine Date Status Refusal Reason SARS-CoV-2 (COVID-19) mRNA BNT-162b2 vac 08/18/21 Recorde d SARS-CoV-2 (COVID-19) mRNA BNT-162b2 vac 06/18/21 Recorde d tetanus/diphtheria/pertussis, acel(Tdap)1 02/23/21 Given influenza virus vaccine, inactivated 09/27/16 Recorded 1Result Comment: [facility][NOTE 3]# [id number] Medications norethindrone 0.35 mg oral tablet 1 tablet = 0.35 mg, By Mouth, Daily, # 28 tablet, 0 Refills, Maintenance, 11/09/21 10:00:00 EST, Tablet, [id number], Partial fill upon patient request if the prescription is for a schedule II opioid drug., 158, cm, 07/21/21 19:04:00 EDTPercy... Start Date: 11/09/21 Status: OrderedProAir HFA 90 mcg/inh inhalation aerosol with adapter 2, puffs, Inhalation, Every 6 hours, PRN, # 8.5 Gm, Refills 0, Tot. Refills 0, Maintenance, 11/11/2215:09:00 EST, Aerosol, Route to Pharmacy Electronically, [id number], [facility]/pharmacy #[id number], 158, cm, 07/21/21 19:04:00 EDT, Barbara... Start Date: 11/11/21 Status: Ordered Problem List Condition Effective Dates Status Health Status Informant Anxiety(Confirmed) Active Adult BMI 45.0-49.9 kg/sq m(Confirmed) Active Irregular menses(Confirmed) Active MARIO (obstructive sleep Active apnea)(Confirmed) PE (pulmonary Active thromboembolism)(Confirmed) Social History Social History Type Response Smoking Status Never (less than 100 in life time) entered on: 08/13/20 Sex
--- OUTSIDE RECORDS SUMMARY | 2022-09-25 11:25 | XMS_ITS | Continuity of Care Document ---
:1995 Author Organization [facility] Address [address] [place] [address]- Care Team Providers Name Role Phone Dayna MAE, Lanny Primary Care Physician [place] [facility] [place]21 [facility] [address] [place], [place] [address] Allergies, Adverse Reactions, Alerts Substance Reaction Severity Status Ritalin rash Active Cheatham rash Active oral itching Immunizations Given and Recorded Vaccine Date Status Refusal Reason SARS-CoV-2 (COVID-19) mRNA BNT-162b2 vac 08/18/21 Recorde d SARS-CoV-2 (COVID-19) mRNA BNT-162b2 vac 06/18/21 Recorde d tetanus/diphtheria/pertussis, acel(Tdap)1 02/23/21 Given influenza virus vaccine, inactivated 09/27/16 Recorded 1Result Comment: [facility]# [id number] Medications norethindrone 0.35 mg oral tablet 1 tablet = 0.35 mg, By Mouth, Daily, # 28 tablet, 3 Refills, Maintenance, 08/10/21 15:51:00 EDT, Tablet, [id number], Partial fill upon patient request if the prescription is for a schedule II opioid drug., 158, cm, 07/21/21 19:04:00 EDT, Percy... Start Date: 08/10/21 Status: Ordered Problem List Condition Effective Dates Status Health Status Informant Anxiety(Confirmed) Active Adult BMI 45.0-49.9 kg/sq m(Confirmed) Active Irregular menses(Confirmed) Active MARIO (obstructive sleep Active apnea)(Confirmed) PE (pulmonary Active thromboembolism)(Confirmed) Social History Social History Type Response Smoking Status Never (less than 100 in life time) entered on: 08/13/20 Sex
--- OUTSIDE RECORDS SUMMARY | 2022-09-25 11:25 | XMS_ITS | Continuity of Care Document ---
:1995 Author Organization [facility] Address [address] [place] [address]- Care Team Providers Name Role Phone Praneeth Corbett MD Primary Care Physician Encounter [facility] [place] Date(s): 11/10/20 - 11/17/20 [facility] [address] [place] [address]- Encounter Diagnosis Chronic headaches (Discharge Diagnosis) - 11/10/20 Attending Physician: Praneeth Corbett MD Allergies, Adverse Reactions, Alerts Substance Reaction Severity Status Ritalin rash Active Cheatham rash Active oral itching Medications albuterol CFC free 90 mcg/inh inhalation aerosol 2, puffs, Inhalation, 4 times a day, PRN, # 1 each, Refills 0, Tot. Refills 0, Maintenance, 10/11/2012:01:00 EST, Aerosol, Route to Pharmacy Electronically, [id number], [facility] #[id number], 157, cm, 08/31/20 15:49:00... Start Date: 10/11/20 Status: OrderedEliquis 5 mg oral tablet 1 tablet = 5 mg, By Mouth, 2 times a day, # 60 tablet, 11 Refills, Maintenance, 11/16/20 16:45:00 EST, Tablet, [facility]/pharmacy #[id number], Partial fill upon patient request if the prescription is for a schedule II opioid drug., 157, cm, 08/31/20 15:49:00 EDT,... Start Date: 11/16/20 Status: Orderedgabapentin 100 mg oral capsule 100 mg, 1, capsule, By Mouth, 3 times a day, PRN, # 21 capsule, Refills 0, Tot. Refills 0, Maintenance, Pain , Moderate, 10/15/20 17:12:00 EST, Route to Pharmacy Electronically, [facility] #[id number], Partial fill upon patient request if the [...] 10 minutes and... Start Date: 08/13/20 Status: OrderedZyrTEC 10 mg oral tablet 1 [...] Dates Health Status Clinical In formant Service Chronic Discharge 11/10/20 headaches Diagnosis Social History Social History Type Response Smoking Status Never (less than 100 in life time) entered on: 08/13/20 Sex
--- OUTSIDE RECORDS SUMMARY | 2022-09-25 11:25 | XMS_ITS | Continuity of Care Document ---
:1995 Author Organization [facility] Address [address] [place] [address], [address] [place] [address], [address] [place] [address]- Care Team Providers Name Role Phone Praneeth Corbett MD Primary Care Physician [place] [facility] [place] 04/16/21 [facility] [address] [place] [address], 3rd [facility], [address] [place] [id number] Attending Physician: Shaila Massey NP Admitting Physician: Shaila Massey NP Referring Physician: Praneeth Corbett MD Allergies, Adverse Reactions, Alerts Substance Reaction Severity Status Ritalin rash Active Cheatham rash Active oral itching Immunizations Given and Recorded Vaccine Date Status Refusal Reason tetanus/diphtheria/pertussis, acel(Tdap)1 02/23/21 Given 1Result Comment: [facility]# [id number] Medications albuterol CFC free 90 mcg/inh inhalation aerosol 2, puffs, Inhalation, 4 times a day, PRN, # 1 each, Refills 0, Tot. Refills 0, Maintenance, 10/11/2012:01:00 EST, Aerosol, Route to Pharmacy Electronically, [id number], [id number], 157, cm, 08/31/20 15:49:00... Start Date: 10/11/20 Status: OrderedEliquis 5 mg oral tablet 1 tablet = 5 mg, By Mouth, 2 times a day, # 60 tablet, 11 Refills, Maintenance, 11/16/20 16:45:00 EST, Tablet, [facility]/pharmacy #[id number], Partial fill upon patient request if the prescription is for a schedule II opioid drug., 157, cm, 08/31/20 15:49:00 EDT,... Start Date: 11/16/20 Status: Orderedgabapentin 100 mg oral capsule 100 mg, 1, capsule, By Mouth, 3 times a day, PRN, # 21 capsule, Refills 0, Tot. Refills 0, Maintenance, Pain , Moderate, 10/15/20 17:12:00 EST, Route to Pharmacy Electronically, [facility] #[id number], Partial fill upon patient request if the [...] Refills, Maintenance, 11/29/20 16:07:00 EST, Capsule, [id number], Partial fill upon patient request if the [...]
--- OUTSIDE RECORDS SUMMARY | 2022-09-25 11:25 | XMS_ITS | Continuity of Care Document ---
:[address] [facility] Address [address] [place] [address]- Care Team Providers Name Role Phone Aric MAE, Praeneth Primary Care Physician [place] [facility] [place]/29/20 - 12/29/20 [facility] [address] [place], [place] [address] Allergies, Adverse Reactions, Alerts Substance Reaction Severity Status Ritalin rash Active Cheatham rash Active oral itching Medications albuterol CFC free 90 mcg/inh inhalation aerosol 2, puffs, Inhalation, 4 times a day, PRN, # 1 each, Refills 0, Tot. Refills 0, Maintenance, 10/11/2012:01:00 EST, Aerosol, Route to Pharmacy Electronically, [id number], [facility] #[id number], 157, cm, 08/31/20 15:49:00... Start Date: 10/11/20 Status: OrderedEliquis 5 mg oral tablet 1 tablet = 5 mg, By Mouth, 2 times a day, # 60 tablet, 11 Refills, Maintenance, 11/16/20 16:45:00 EST, Tablet, [id number], Partial fill upon patient request if the prescription is for a schedule II opioid drug., 157, cm, 08/31/20 15:49:00 EDT,... Start Date: 11/16/20 Status: Orderedgabapentin 100 mg oral capsule 100 mg, 1, capsule, By Mouth, 3 times a day, PRN, # 21 capsule, Refills 0, Tot. Refills 0, Maintenance, Pain , Moderate, 10/15/20 17:12:00 EST, Route to Pharmacy Electronically, [facility] #[id number], Partial fill upon patient request if the [...]
--- OUTSIDE RECORDS SUMMARY | 2022-09-25 11:25 | XMS_ITS | Continuity of Care Document ---
:1995 Author Organization [facility] Address [address] [place] [address]- Care Team Providers Name Role Phone Aric MAE, Praneeth Primary Care Physician [place] [facility] [place](s): 10/08/20 - 11/07/20 [facility] [address] [place], [place] [address] Allergies, Adverse Reactions, Alerts Substance Reaction Severity Status Ritalin rash Active Cheatham rash Active oral itching Medications albuterol CFC free 90 mcg/inh inhalation aerosol 2, puffs, Inhalation, 4 times a day, PRN, # 1 each, Refills 0, Tot. Refills 0, Maintenance, 10/11/2012:01:00 EST, Aerosol, Route to Pharmacy Electronically, [id number], [facility] #[id number], 157, cm, 08/31/20 15:49:00... Start Date: 10/11/20 Status: OrderedEliquis 5 mg oral tablet 1 tablet = 5 mg, By Mouth, 2 times a day, # 60 tablet, 0 Refills, Maintenance, 10/26/20 20:54:00 EST, Tablet, Partial fill upon patient request if the prescription is for a schedule II opioid drug. Start Date: 10/26/20 Status: Orderedgabapentin 100 mg oral capsule 100 mg, 1, capsule, By Mouth, 3 times a day, PRN, # 21 capsule, Refills 0, Tot. Refills 0, Maintenance, Pain , Moderate, 10/15/20 17:12:00 EST, Route to Pharmacy Electronically, [facility] #[id number], Partial fill upon patient request if the pre... Start Date: 10/15/20 Stop Date: 10/22/20 Status: Orderedibuprofen 600 mg oral tablet 600 mg, 1, tablet, By Mouth, Every 8 hours, # 30 tablet, Refills 0, Tot. Refills 0, Maintenance, 09/21/20 16:15:00 EST, [facility]ically, [id number], Partial fill upon patient request, 157, cm, 08/31/20 15:49:00 EDT, H... Start Date: 09/21/20 Status: Orderedselenium sulfide 2.5% topical lotion See Instructions, Apply to the scalp, let sit for 10 minutes and then rinse. Use daily x 1 week, then once a week after that., # 1 each, 0 Refills, Maintenance, 08/13/20 13:17:00 EDT, [facility]/pharmacy #[id number], Apply to the scalp, let sit for 10 minutes and... Start Date: 08/13/20 Status: OrderedZyrTEC 10 mg oral tablet 1 tablet = 10 mg, By Mouth, Daily, # 30 tablet, 4 Refills, Maintenance, 08/13/20 13:00:00 EDT, Tablet, [id number], 157, cm, 08/10/20 13:47:00 EDT, Height, 121.6, kg, 01/21/19 23:22:00 EDT, Dry Weight Start Date: 08/13/20 Status: Ordered Problem List Condition Effective Dates Status Health Status Informant Adult BMI 45.0-49.9 kg/sq m(Confirmed) Active Irregular menses(Confirmed) Active Obesity(Confirmed) Active PE (pulmonary Active thromboembolism)(Confirmed) Social History Social History Type Response Smoking Status Never (less than 100 in life time) entered on: 08/13/20 Sex
--- OUTSIDE RECORDS SUMMARY | 2022-09-25 11:25 | XMS_ITS | Continuity of Care Document ---
:1995 Author Organization [facility] Address [address] [place] [address]- Care Team Providers Name Role Phone Dayna MAE, Lanny Primary Care Physician Encounter [place] Date(s): 09/08/21 - 10/08/[address] [facility] [address] [address]- Attending Physician: Isabela Lux Admitting Physician: Isabela Lux Referring Physician: AdmIsabela pabon Allergies, Adverse Reactions, Alerts Substance Reaction Severity Status Ritalin rash Active Cheatham rash Active oral itching Immunizations Given and Recorded Vaccine Date Status Refusal Reason SARS-CoV-2 (COVID-19) mRNA BNT-162b2 vac 08/18/21 Recorde d SARS-CoV-2 (COVID-19) mRNA BNT-162b2 vac 06/18/21 Recorde d tetanus/diphtheria/pertussis, acel(Tdap)1 02/23/21 Given influenza virus vaccine, inactivated 09/27/16 Recorded 1Result Comment: [facility]# [id number] Medications norethindrone 0.35 mg oral tablet 1 tablet = 0.35 mg, By Mouth, Daily, # 28 tablet, 3 Refills, Maintenance, 08/10/21 15:51:00 EDT, Tablet, [facility]/pharmacy #[id number], Partial fill upon patient request if the [...]
--- OUTSIDE RECORDS SUMMARY | 2022-09-25 11:25 | XMS_ITS | Continuity of Care Document ---
:1995 Author Organization [facility] Address [address] [place] [address]- Care Team Providers Name Role Phone Dayna MAE, Lanny Primary Care Physician [place] [facility] [place] Date(s): 11/10/21 - 12/10/21 [facility] [address] [place], [place] [address] Allergies, Adverse Reactions, Alerts Substance Reaction Severity Status Ritalin rash Active Cheatham rash Active oral itching Immunizations Given and Recorded Vaccine Date Status Refusal Reason SARS-CoV-2 (COVID-19) mRNA BNT-162b2 vac 08/18/21 Recorde d SARS-CoV-2 (COVID-19) mRNA BNT-162b2 vac 06/18/21 Recorde d tetanus/diphtheria/pertussis, acel(Tdap)1 02/23/21 Given influenza virus vaccine, inactivated 09/27/16 Recorded 1Result Comment: [facility]# [id number] Medications norethindrone 0.35 mg oral tablet 1 tablet = 0.35 mg, By Mouth, Daily, # 28 tablet, 0 Refills, Maintenance, 11/09/21 10:00:00 EST, Tablet, [facility]/pharmacy #[id number], Partial fill upon patient request if the prescription is for a schedule II opioid drug., 158, cm, 07/21/21 19:04:00 EDTPercy... Start Date: 11/09/21 Status: OrderedProAir HFA 90 mcg/inh inhalation aerosol with adapter 2, puffs, Inhalation, Every 6 hours, PRN, # 8.5 Gm, Refills 0, Tot. Refills 0, Maintenance, 11/11/2215:09:00 EST, Aerosol, Route to Pharmacy Electronically, [id number], [id number], 158, cm, 07/21/21 19:04:00 Rubia MYERS. Start Date: 11/11/21 Status: Ordered Problem List Condition Effective Dates Status Health Status Informant Anxiety(Confirmed) Active Adult BMI 45.0-49.9 kg/sq m(Confirmed) Active Irregular menses(Confirmed) Active MARIO (obstructive sleep Active apnea)(Confirmed) PE (pulmonary Active thromboembolism)(Confirmed) Social History Social History Type Response Smoking Status Never (less than 100 in life time) entered on: 08/13/20 Sex
--- OUTSIDE RECORDS SUMMARY | 2022-09-25 11:25 | XMS_ITS | Continuity of Care Document ---
:[address] [facility] Address [address] [place] [address]- Care Team Providers Name Role Phone Aric MAE, Praneeth Primary Care Physician [place] [facility] [place]s): 11/09/20 - 12/09/20 [facility] [address] [place], [place] [address] Allergies, Adverse Reactions, Alerts Substance Reaction Severity Status Ritalin rash Active Cheatham rash Active oral itching Medications albuterol CFC free 90 mcg/inh inhalation aerosol 2, puffs, Inhalation, 4 times a day, PRN, # 1 each, Refills 0, Tot. Refills 0, Maintenance, 10/11/2012:01:00 EST, Aerosol, Route to Pharmacy Electronically, [id number], [facility] #[id number], 157, cm, 08/31/20 15:49:00... Start Date: 10/11/20 Status: OrderedEliquis 5 mg oral tablet 1 tablet = 5 mg, By Mouth, 2 times a day, # 60 tablet, 11 Refills, Maintenance, 11/16/20 16:45:00 EST, Tablet, [id number], Partial fill upon patient request if the prescription is for a schedule II opioid drug., 157, cm, 08/31/20 15:49:00 EDT,... Start Date: 11/16/20 Status: Orderedgabapentin 100 mg oral capsule 100 mg, 1, capsule, By Mouth, 3 times a day, PRN, # 21 capsule, Refills 0, Tot. Refills 0, Maintenance, Pain , Moderate, 10/15/20 17:12:00 EST, Route to Pharmacy Electronically, [facility] #[id number], Partial fill upon patient request if the [...]
--- OUTSIDE RECORDS SUMMARY | 2022-09-25 11:26 | XMS_ITS | Continuity of Care Document ---
:1995 Author Organization [facility] Address [address] [place] [address]- Care Team Providers Name Role Phone Aric MAE, Praneeth Primary Care Physician En[place] [facility] [place] Date(s): 11/16/20 - 12/16/20 [facility] [address] [place], [place] [address] Allergies, Adverse Reactions, Alerts Substance Reaction Severity Status Ritalin rash Active Cheatham rash Active oral itching Medications albuterol CFC free 90 mcg/inh inhalation aerosol 2, puffs, Inhalation, 4 times a day, PRN, # 1 each, Refills 0, Tot. Refills 0, Maintenance, 10/11/2012:01:00 EST, Aerosol, Route to Pharmacy Electronically, [id number], [facility] #[id number], 157, cm, 08/31/20 15:49:00... Start Date: 10/11/20 Status: OrderedEliquis 5 mg oral tablet 1 tablet = 5 mg, By Mouth, 2 times a day, # 60 tablet, 11 Refills, Maintenance, 11/16/20 16:45:00 EST, Tablet, [id number], Partial fill upon patient request if the prescription is for a schedule II opioid drug., 157, cm, 08/31/20 15:49:00 EDT,... Start Date: 11/16/20 Status: Orderedgabapentin 100 mg oral capsule 100 mg, 1, capsule, By Mouth, 3 times a day, PRN, # 21 capsule, Refills 0, Tot. Refills 0, Maintenance, Pain , Moderate, 10/15/20 17:12:00 EST, Route to Pharmacy Electronically, [facility] #[id number], Partial fill upon patient request if the [...] Refills, Maintenance, 11/29/20 16:07:00 EST, Capsule, [id number], Partial fill upon patient request if the [...]
--- OUTSIDE RECORDS SUMMARY | 2022-09-25 11:26 | XMS_ITS | Continuity of Care Document ---
:1995 Author Organization [facility] Address [address] [place] [address], [address] [place] [address], [address] [place] [address]- Care Team Providers Name Role Phone Praneeth Corbett MD Primary Care Physician [place] [facility] [place] 03/17/21 - 04/16/21 [facility] [address] [place] [address], [address] [place] [address], [address] [place] [address] Attending Physician: Admtr, Ar8 Admitting Physician: Admtr, Ar8 Referring Physician: Admtr, Ar8 Allergies, Adverse Reactions, Alerts Substance Reaction Severity Status Ritalin rash Active Cheatham rash Active oral itching Immunizations Given and Recorded Vaccine Date Status Refusal Reason tetanus/diphtheria/pertussis, acel(Tdap)1 02/23/21 Given 1Result Comment: [facility]# [id number] Medications albuterol CFC free 90 mcg/inh inhalation aerosol 2, puffs, Inhalation, 4 times a day, PRN, # 1 each, Refills 0, Tot. Refills 0, Maintenance, 10/11/2012:01:00 EST, Aerosol, Route to Pharmacy Electronically, [id number], [id number], 157, cm, 08/31/20 15:49:00... Start Date: 10/11/20 Status: OrderedEliquis 5 mg oral tablet 1 tablet = 5 mg, By Mouth, 2 times a day, # 60 tablet, 11 Refills, Maintenance, 11/16/20 16:45:00 EST, Tablet, [id number], Partial fill upon patient request if the prescription is for a schedule II opioid drug., 157, cm, 08/31/20 15:49:00 EDT,... Start Date: 11/16/20 Status: Orderedgabapentin 100 mg oral capsule 100 mg, 1, capsule, By Mouth, 3 times a day, PRN, # 21 capsule, Refills 0, Tot. Refills 0, Maintenance, Pain , Moderate, 10/15/20 17:12:00 EST, Route to Pharmacy Electronically, [facility] #[id number], Partial fill upon patient request if the pre... Start Date: 10/15/20 Stop Date: 10/22/20 Status: Orderedselenium sulfide 2.5% topical lotion See Instructions, Apply to the scalp, let sit for 10 minutes and then rinse. Use daily x 1 week, then once a week after that., # 1 each, 0 Refills, Maintenance, 08/13/20 13:17:00 EDT, [facility]/pharmacy #[id number], Apply to the scalp, let sit [...]
--- OUTSIDE RECORDS SUMMARY | 2022-09-25 11:26 | XMS_ITS | Continuity of Care Document ---
:1995 Author Organization [facility] Address [address] [place] [address]- Care Team Providers Name Role Phone Lanny Mcintosh MD Primary Care Physician Encounter [facility] Date(s): 08/10/21 - 08/10/[address] [address] Discharge Disposition: A-D/C Home Attending Physician: Roseline Garcia MD Admitting Physician: Roseline Garcia MD Referring Physician: Roseline Garcia MD Allergies, Adverse Reactions, Alerts Substance Reaction Severity Status Ritalin rash Active Cheatham rash Active oral itching Immunizations Given and Recorded Vaccine Date Status Refusal Reason tetanus/diphtheria/pertussis, acel(Tdap)1 02/23/21 Given 1Result Comment: [facility]# [id number] Medications Eliquis 5 mg oral tablet 1 tablet = 5 mg, By Mouth, 2 times a day, # 60 tablet, 11 Refills, Maintenance, 11/16/20 16:45:00 EST, Tablet, [id number], Partial fill upon patient request if the prescription is for a schedule II opioid drug., 157, cm, 08/31/20 15:49:00 EDT,... Start Date: 11/16/20 Status: Orderednorethindrone 0.35 mg oral tablet 1 tablet = 0.35 mg, By Mouth, Daily, # 28 tablet, 3 Refills, Maintenance, 08/10/21 15:51:00 EDT, Tablet, [id number], Partial fill upon patient request if the prescription is for a schedule II opioid drug., 158, cm, 07/21/21 19:04:00 EDT, Heigh... Start Date: 08/10/21 Status: OrderedProvera 10 mg oral tablet 10 mg, 1, tablet, By Mouth, Daily, # 10 tablet, Refills 0, Tot. Refills 0, Maintenance, 07/21/21 21:11:00 EDT, Route to Pharmacy Electronically, [facility]/pharmacy #[id number], Partial fill upon patient request ifthe prescription is for a schedule II opioid drug... Start Date: 07/21/21 Stop Date: 07/31/21 Status: Ordered Problem List Condition Effective Dates Status Health Status Informant Anxiety(Confirmed) Active Adult BMI 45.0-49.9 kg/sq m(Confirmed) Active Irregular menses(Confirmed) Active MARIO (obstructive sleep Active apnea)(Confirmed) PE (pulmonary Active thromboembolism)(Confirmed) Procedures Procedure Date Related Diagnosis Body Site Status Ear drum Completed Vital Signs Most recent to oldest [Reference Range]: 1 Weight 116.7 kg (08/10/21 3:15 PM) Oxygen Saturation [94-100 %] 100 % (08/10/21 3:15 PM) Pulse Rate [55-90 bpm] 71 bpm (08/10/21 3:15 PM) Blood Pressure [90-138/55-84 mm Hg] 136/65 mm Hg (08/10/21 3:15 PM) Respiratory Rate [16-30 br/min] 20 br/min (08/10/21 3:15 PM) Temperature [96.8-100.4 DegF] 98.2 DegF (08/10/21 3:15 PM) Mode of Delivery (Oxygen) Room air (08/10/21 3:15 PM) Blood pressure sites Arm, left 1 (08/10/21 3:15 PM) Temperature Route Oral (08/10/21 3:15 PM) Dry Weight 116.7 kg (08/10/21 3:15 PM) Weight Obtained Via Standing scale (08/10/21 3:15 PM) Dry Weight Obtained Via Standing scale (08/10/21 3:15 PM) 1Result Comment: left arm measured at 35.5cm Social History Social History Type Response Smoking Status Never (less than 100 in life time) entered on: 08/13/20 Sex
--- OUTSIDE RECORDS SUMMARY | 2022-09-25 11:26 | XMS_ITS | Continuity of Care Document ---
:1995 Author Organization [facility] Address [address] [place] [address]- Care Team Providers Name Role Phone Lanny Mcintosh MD Primary Care Physician Encounter [facility] [place] Date(s): 07/21/21 - 08/20/[address] [address] Allergies, Adverse Reactions, Alerts Substance Reaction Severity Status Ritalin rash Active Cheatham rash Active oral itching Immunizations Given and Recorded Vaccine Date Status Refusal Reason tetanus/diphtheria/pertussis, acel(Tdap)1 02/23/21 Given 1Result Comment: [facility]# [id number] Medications Eliquis 5 mg oral tablet 1 [...] 07/21/21 21:11:00 EDT, Route to Pharmacy Electronically, [facility]/pharmacy #[id number], Partial fill upon patient request ifthe prescription [...]
--- OUTSIDE RECORDS SUMMARY | 2022-09-25 11:26 | XMS_ITS | Continuity of Care Document ---
:1995 Author Organization [facility] Address [address] [place] [address]- Care Team Providers Name Role Phone Dayna MAE, Lanny Primary Care Physician Encounter [facility] Date(s): 10/04/21 - 11/03/21 [facility] [address] [place] [address]- Encounter Diagnosis Anxiety (Discharge Diagnosis) - 10/04/21 PE (pulmonary thromboembolism) (Discharge Diagnosis) - 10/04/21 Allergies, Adverse Reactions, Alerts Substance Reaction Severity Status Ritalin rash Active Cheatham rash Active oral itching Immunizations Given and Recorded Vaccine Date Status Refusal Reason SARS-CoV-2 (COVID-19) mRNA BNT-162b2 vac 08/18/21 Recorde d SARS-CoV-2 (COVID-19) mRNA BNT-162b2 vac 06/18/21 Recorde d tetanus/diphtheria/pertussis, acel(Tdap)1 02/23/21 Given influenza virus vaccine, inactivated 09/27/16 Recorded 1Result Comment: [facility]# [id number] Medications norethindrone 0.35 mg oral tablet 1 tablet = 0.35 mg, By Mouth, Daily, # 28 tablet, 3 Refills, Maintenance, 08/10/21 15:51:00 EDT, Tablet, [id number], Partial fill upon patient request if the prescription is for a schedule II opioid drug., 158, cm, 07/21/21 19:04:00 EDT, Percy... Start Date: 08/10/21 Status: Ordered Problem List Condition Effective Dates Status Health Status Informant Anxiety(Confirmed) Active Adult BMI 45.0-49.9 kg/sq m(Confirmed) Active Irregular menses(Confirmed) Active MARIO (obstructive sleep Active apnea)(Confirmed) PE (pulmonary Active thromboembolism)(Confirmed) Diagnosis Diagnosis Type Effective Dates Health Status Clinical In formant Service Anxiety Discharge 10/04/21 Diagnosis PE (pulmonary Discharge 10/04/21 thromboembolism) Diagnosis Social History Social History Type Response Smoking Status Never (less than 100 in life time) entered on: 08/13/20 Sex
--- OUTSIDE RECORDS SUMMARY | 2022-09-25 11:26 | XMS_ITS | Continuity of Care Document ---
:1995 Author Organization [facility] Address [address] [place] [address]- Care Team Providers Name Role Phone Lanny Mcintosh MD Primary Care Physician Encounter [facility] [place] Date(s): 08/13/21 - 09/18/[address] [address] Attending Physician: Liz Cyr MD Admitting Physician: Liz Cyr MD Referring Physician: Liz Cyr MD Allergies, Adverse Reactions, Alerts Substance Reaction Severity Status Ritalin rash Active Cheatham rash Active oral itching Immunizations Given and Recorded Vaccine Date Status Refusal Reason SARS-CoV-2 (COVID-19) mRNA BNT-162b2 vac 08/18/21 Recorde d SARS-CoV-2 (COVID-19) mRNA BNT-162b2 vac 06/18/21 Recorde d tetanus/diphtheria/pertussis, acel(Tdap)1 02/23/21 Given influenza virus vaccine, inactivated 09/27/16 Recorded 1Result Comment: [facility]# [id number] Medications Eliquis 5 mg oral tablet 1 [...] II opioid drug., 158, cm, 07/21/21 19:04:00 EDTJovanna. Start Date: 08/10/21 Status: OrderedProvera 10 mg oral tablet 10 mg, 1, tablet, By Mouth, Daily, # 10 tablet, Refills 0, Tot. Refills 0, Maintenance, 07/21/21 21:11:00 EDT, Route to Pharmacy Electronically, [facility]/pharmacy #[id number], Partial fill upon patient request ifthe prescription [...]
--- OUTSIDE RECORDS SUMMARY | 2022-09-25 11:26 | XMS_ITS | Continuity of Care Document ---
:[address] [facility] Address [address] [place] [address]- Care Team Providers Name Role Phone Praneeth Corbett MD Primary Care Physician Encounter [facility] [place] Date(s): 10/11/20 - 10/18/20 [facility] [address] [place], [place] [address] Encounter Diagnosis COVID-19 (Discharge Diagnosis) - 10/11/20 Abnormal TSH (Discharge Diagnosis) - 10/11/20 Attending Physician: Praneeth Corbett MD Allergies, Adverse Reactions, Alerts Substance Reaction Severity Status Ritalin rash Active Cheatham rash Active oral itching Medications albuterol CFC free 90 mcg/inh inhalation aerosol 2, puffs, Inhalation, 4 times a day, PRN, # 1 each, Refills 0, Tot. Refills 0, Maintenance, 10/11/2012:01:00 EST, Aerosol, Route to Pharmacy Electronically, [id number], [id number], 157, cm, 08/31/20 15:49:00... Start Date: 10/11/20 Status: OrderedApri 0.15 mg-0.03 mg oral tablet 1 tablet, By Mouth, Daily, # 84 tablet, 0 Refills, Maintenance, 08/15/20 16:18:00 EDT, Tablet, [facility]/pharmacy #[id number], 1 tablet By Mouth Daily, 157, cm, 08/10/20 13:47:00 EDT, Height, 121.6, kg, 01/21/19 23:22:00 EDT, Dry Weight Start Date: 08/15/20 Status: Orderedgabapentin 100 mg oral capsule 100 mg, 1, capsule, By Mouth, 3 times a day, PRN, # 21 capsule, Refills 0, Tot. Refills 0, Maintenance, Pain , Moderate, 10/15/20 17:12:00 EST, Route to Pharmacy Electronically, [facility] #[id number], Partial fill upon patient request if the pre... Start Date: 10/15/20 Stop Date: 10/22/20 Status: Orderedibuprofen 600 mg oral tablet 600 mg, 1, tablet, By Mouth, Every 8 hours, # 30 tablet, Refills 0, Tot. Refills 0, Maintenance, 09/21/20 16:15:00 EST, Route to Pharmacy Electronically, [facility] #[id number], Partial fill upon patient request, 157, cm, [...] 4 Refills, Maintenance, 08/13/20 13:00:00 EDT, Tablet, [facility] #[id number], 157, cm, 08/10/20 13:47:00 EDT, Height, 121.6, kg, 01/21/19 23:22:00 EDT, Dry Weight Start Date: 08/13/20 Status: Ordered Problem List Condition Effective Dates Status Health Status Informant Adult BMI 45.0-49.9 kg/sq m(Confirmed) Active COVID-19(Confirmed) Active Irregular menses(Confirmed) Active Obesity(Confirmed) Active PE (pulmonary Active thromboembolism)(Confirmed) Diagnosis Diagnosis Type Effective Dates Health Status Clinical In formant Service COVID-19 Discharge 10/11/20 Diagnosis Abnormal TSH Discharge 10/11/20 Diagnosis Social History Social History Type Response Smoking Status Never (less than 100 in life time) entered on: 08/13/20 Sex
--- OUTSIDE RECORDS SUMMARY | 2022-09-25 11:26 | XMS_ITS | Continuity of Care Document ---
:1995 Author Organization [facility] Address [address] [place] [address]- Care Team Providers Name Role Phone Praneeth Corbett MD Primary Care Physician Encounter [facility] Date(s): 11/15/20 - 12/15/[address] [address] Attending Physician: Isabela Lux Admitting Physician: AdmtrIsabela Referring Physician: Admtr ArHoward Allergies, Adverse Reactions, Alerts Substance Reaction Severity Status Ritalin rash Active Cheatham rash Active oral itching Medications albuterol CFC free 90 mcg/inh inhalation aerosol 2, puffs, Inhalation, 4 times a day, PRN, # 1 each, Refills 0, Tot. Refills 0, Maintenance, 10/11/2012:01:00 EST, Aerosol, Route to Pharmacy Electronically, [id number], [facility] #[id number], 157, cm, 08/31/20 15:49:00... Start Date: 10/11/20 Status: OrderedEliquis 5 mg oral tablet 1 tablet = 5 mg, By Mouth, 2 times a day, # 60 tablet, 11 Refills, Maintenance, 11/16/20 16:45:00 EST, Tablet, [facility]/pharmacy #[id number], Partial fill upon patient request if the prescription is for a schedule II opioid drug., 157, cm, 08/31/20 15:49:00 EDT,... Start Date: 11/16/20 Status: Orderedgabapentin 100 mg oral capsule 100 mg, 1, capsule, By Mouth, 3 times a day, PRN, # 21 capsule, Refills 0, Tot. Refills 0, Maintenance, Pain , Moderate, 10/15/20 17:12:00 EST, Route to Pharmacy Electronically, [facility] #[id number], Partial fill upon patient request if the [...] Refills, Maintenance, 11/29/20 16:07:00 EST, Capsule, [id number], Partial fill upon patient request if the [...]
--- OUTSIDE RECORDS SUMMARY | 2022-09-25 11:26 | XMS_ITS | Continuity of Care Document ---
:1995 Author Organization [facility] Address [address] [place] [address]- Care Team Providers Name Role Phone Praneeth Corbett MD Primary Care Physician Encounter [facility] Date(s): 08/26/20 - 09/02/20 [facility] [address] [place] [address]- [facility] Encounter Diagnosis Abnormal thyroid blood test (Discharge Diagnosis) - 08/26/20 Endometrial thickening on ultrasound (Discharge Diagnosis) - 08/26/20 Attending Physician: Praneeth Corbett MD Allergies, Adverse Reactions, Alerts Substance Reaction Severity Status Ritalin rash Active Cheatham rash Active oral itching Medications Apri 0.15 mg-0.03 mg oral tablet 1 tablet, By Mouth, Daily, # 84 tablet, 0 Refills, Maintenance, 08/15/20 16:18:00 EDT, Tablet, [id number], 1 tablet By Mouth Daily, 157, cm, 08/10/20 13:47:00 EDT, Height, 121.6, kg, 01/21/19 23:22:00 EDT, Dry Weight Start Date: 08/15/20 Status: Orderedselenium sulfide 2.5% topical lotion See [...] m(Confirmed) Active Irregular menses(Confirmed) Active Obesity(Confirmed) Active Diagnosis Diagnosis Type Effective Dates Health Clinical Infor mant Status Service Abnormal thyroid Discharge 08/26/20 blood test Diagnosis Endometrial Discharge 08/26/20 thickening on Diagnosis ultrasound Social History Social History Type Response Smoking Status Never (less than 100 in life time) entered on: 08/13/20 Sex
--- OUTSIDE RECORDS SUMMARY | 2022-09-25 11:26 | XMS_ITS | Continuity of Care Document ---
:1995 Author Organization [facility] Address [address] [place] [address]- Care Team Providers Name Role Phone Lanny Mcintosh MD Primary Care Physician Encounter [facility] [place] Date(s): 07/01/21 - 10/08/21 [facility] [address] [address]- Attending Physician: Liz Cyr MD Admitting Physician: Liz Cyr MD Referring Physician: Lanny Mcintosh MD Allergies, Adverse Reactions, Alerts Substance Reaction Severity Status Ritalin rash Active Cheatham rash Active oral itching Immunizations Given and Recorded Vaccine Date Status Refusal Reason SARS-CoV-2 (COVID-19) mRNA BNT-162b2 vac 08/18/21 Recorde d SARS-CoV-2 (COVID-19) mRNA BNT-162b2 vac 06/18/21 Recorde d tetanus/diphtheria/pertussis, acel(Tdap)1 02/23/21 Given influenza virus vaccine, inactivated 09/27/16 Recorded 1Result Comment: [facility]# [id number] Medications norethindrone 0.35 mg oral tablet 1 tablet = 0.35 mg, By Mouth, Daily, # 28 tablet, 3 Refills, Maintenance, 08/10/21 15:51:00 EDT, Tablet, [facility]/pharmacy #[id number], Partial fill upon patient request if the [...]
--- OUTSIDE RECORDS SUMMARY | 2022-09-25 11:26 | XMS_ITS | Continuity of Care Document ---
:1995 Author Organization [facility] Address [address] [place] [address], [address] [place] [address], [address] [place] [address]- Care Team Providers Name Role Phone Praneeth Corbett MD Primary Care Physician Encounter [facility] [place] Date(s): 01/03/21 - 02/02/21 [facility] [address] [place] [address], [address] [place] [address], [address] [place] [address] Allergies, Adverse Reactions, Alerts Substance Reaction Severity Status Ritalin rash Active Cheatham rash Active oral itching Medications albuterol CFC free 90 mcg/inh inhalation aerosol 2, puffs, Inhalation, 4 times a day, PRN, # 1 each, Refills 0, Tot. Refills 0, Maintenance, 10/11/2012:01:00 EST, Aerosol, Route to Pharmacy Electronically, [id number], [facility] #[id number], 157, cm, 08/31/20 15:49:00... Start Date: 10/11/20 Status: OrderedEliquis 5 mg oral tablet 1 tablet = 5 mg, By Mouth, 2 times a day, # 60 tablet, 11 Refills, Maintenance, 11/16/20 16:45:00 EST, Tablet, [facility]/pharmacy #[id number], Partial fill upon patient request if the prescription is for a schedule II opioid drug., 157, cm, 08/31/20 15:49:00 EDT,... Start Date: 11/16/20 Status: Orderedgabapentin 100 mg oral capsule 100 mg, 1, capsule, By Mouth, 3 times a day, PRN, # 21 capsule, Refills 0, Tot. Refills 0, Maintenance, Pain , Moderate, 10/15/20 17:12:00 EST, Route to Pharmacy Electronically, [facility] #[id number], Partial fill upon patient request if the [...]
--- OUTSIDE RECORDS SUMMARY | 2022-09-25 11:26 | XMS_ITS | Continuity of Care Document ---
:1995 Author Organization [facility] Address [address] [place] [address]- Care Team Providers Name Role Phone Praneeth Corbett MD Primary Care Physician Encounter [facility] [id number] Date(s): 11/26/20 - 12/31/20 [facility] [address] [place], [place] [address] Attending Physician: Praneeth Corbett MD Allergies, Adverse Reactions, Alerts Substance Reaction Severity Status Ritalin rash Active Cheatham rash Active oral itching Medications albuterol CFC free 90 mcg/inh inhalation aerosol 2, puffs, Inhalation, 4 times a day, PRN, # 1 each, Refills 0, Tot. Refills 0, Maintenance, 10/11/2012:01:00 EST, Aerosol, Route to Pharmacy Electronically, [id number], [id number], 157, cm, 08/31/20 15:49:00... Start Date: 10/11/20 Status: OrderedEliquis 5 mg oral tablet 1 tablet = 5 mg, By Mouth, 2 times a day, # 60 tablet, 11 Refills, Maintenance, 11/16/20 16:45:00 EST, Tablet, [id number], Partial fill upon patient request if the prescription is for a schedule II opioid drug., 157, cm, 08/31/20 15:49:00 EDT,... Start Date: 11/16/20 Status: Orderedgabapentin 100 mg oral capsule 100 mg, 1, capsule, By Mouth, 3 times a day, PRN, # 21 capsule, Refills 0, Tot. Refills 0, Maintenance, Pain , Moderate, 10/15/20 17:12:00 EST, Route to Pharmacy Electronically, [facility] #[id number], Partial fill upon patient request if the [...]
--- OUTSIDE RECORDS SUMMARY | 2022-09-25 11:26 | XMS_ITS | Continuity of Care Document ---
:1995 Author Organization [facility] Address [address] [place] [address]- Care Team Providers Name Role Phone Praneeth Corbett MD Primary Care Physician Encounter [facility] Date(s): 01/20/21 - 01/27/21 [facility] [address] [place] [address]- Encounter Diagnosis Anxiety (Discharge Diagnosis) - 01/20/21 MARIO (obstructive sleep apnea) (Discharge Diagnosis) - 01/25/21 Attending Physician: Praneeth Corbett MD Allergies, Adverse Reactions, Alerts Substance Reaction Severity Status Ritalin rash Active Cheatham rash Active oral itching Medications albuterol CFC free 90 mcg/inh inhalation aerosol 2, puffs, Inhalation, 4 times a day, PRN, # 1 each, Refills 0, Tot. Refills 0, Maintenance, 10/11/2012:01:00 EST, Aerosol, Route to Pharmacy Electronically, [id number], [facility] #[id number], 157, cm, 08/31/20 15:49:00... Start Date: 10/11/20 Status: OrderedEliquis 5 mg oral tablet 1 tablet = 5 mg, By Mouth, 2 times a day, # 60 tablet, 11 Refills, Maintenance, 11/16/20 16:45:00 EST, Tablet, [facility]/pharmacy #[id number], Partial fill upon patient request if the prescription is for a schedule II opioid drug., 157, cm, 08/31/20 15:49:00 EDT,... Start Date: 11/16/20 Status: Orderedgabapentin 100 mg oral capsule 100 mg, 1, capsule, By Mouth, 3 times a day, PRN, # 21 capsule, Refills 0, Tot. Refills 0, Maintenance, Pain , Moderate, 10/15/20 17:12:00 EST, Route to Pharmacy Electronically, [facility] #[id number], Partial fill upon patient request if the [...] 0 Refills, Maintenance, 11/29/20 16:07:00 EST, Capsule, [facility]/pharmacy #[id number], Partial fill upon patient request if the prescription is for a schedule II opioid drug., 157, cm, 08/31/20 15:49:00 ED... Start Date: 11/29/20 Stop Date: 12/09/20 Status: OrderedZyrTEC 10 mg oral tablet 1 tablet = 10 mg, By Mouth, Daily, # 90 tablet, 1 Refills, Maintenance, 11/08/20 12:38:00 EST, Tablet, [facility]/pharmacy #[id number], 157, cm, 08/31/20 15:49:00 EDT, Height, 121.6, kg, 01/21/19 23:22:00 EDT, Dry Weight Start Date: 11/08/20 Status: Ordered Problem List Condition Effective Dates Status Health Status Informant Anxiety(Confirmed) Active Adult BMI 45.0-49.9 kg/sq m(Confirmed) Active Irregular menses(Confirmed) Active Obesity(Confirmed) Active MARIO (obstructive sleep Active apnea)(Confirmed) PE (pulmonary Active thromboembolism)(Confirmed) Diagnosis Diagnosis Type Effective Dates Health Status Clinical In formant Service Anxiety Discharge 01/20/21 Diagnosis MARIO (obstructive Discharge 01/25/21 sleep apnea) Diagnosis Social History Social History Type Response Smoking Status Never (less than 100 in life time) entered on: 08/13/20 Sex
--- OUTSIDE RECORDS SUMMARY | 2022-09-25 11:26 | XMS_ITS | Continuity of Care Document ---
:1995 Author Organization [facility] Address [address] [place] [address]- Care Team Providers Name Role Phone Not on Staff, PCP Primary Care Physician Unavailable Encounter [facility] Date(s): 07/02/20 - 08/01/20 [facility] [address] [place] [address]- [facility] Allergies, Adverse Reactions, Alerts Substance Reaction Severity Status Ritalin rash Active
--- OUTSIDE RECORDS SUMMARY | 2022-09-25 11:26 | XMS_ITS | Continuity of Care Document ---
:1995 Author Organization [facility] Address [address] [place] [address]- Care Team Providers Name Role Phone Aric MAE, Praneeth Primary Care Physician Encounter [facility] Date(s): 11/24/20 - 12/24/20 [facility] [address] [place], [place] [address] Allergies, Adverse Reactions, Alerts Substance Reaction Severity Status Ritalin rash Active Cheatham rash Active oral itching Medications albuterol CFC free 90 mcg/inh inhalation aerosol 2, puffs, Inhalation, 4 times a day, PRN, # 1 each, Refills 0, Tot. Refills 0, Maintenance, 10/11/2012:01:00 EST, Aerosol, Route to Pharmacy Electronically, [id number], [facility] #[id number], 157, cm, 08/31/20 15:49:00... Start Date: 10/11/20 Status: OrderedEliquis 5 mg oral tablet 1 tablet = 5 mg, By Mouth, 2 times a day, # 60 tablet, 11 Refills, Maintenance, 11/16/20 16:45:00 EST, Tablet, [id number], Partial fill upon patient request if the prescription is for a schedule II opioid drug., 157, cm, 08/31/20 15:49:00 EDT,... Start Date: 11/16/20 Status: Orderedgabapentin 100 mg oral capsule 100 mg, 1, capsule, By Mouth, 3 times a day, PRN, # 21 capsule, Refills 0, Tot. Refills 0, Maintenance, Pain , Moderate, 10/15/20 17:12:00 EST, Route to Pharmacy Electronically, [facility] #[id number], Partial fill upon patient request if the [...] Refills, Maintenance, 11/29/20 16:07:00 EST, Capsule, [id number], Partial fill upon patient request if the [...]
--- OUTSIDE RECORDS SUMMARY | 2022-09-25 11:26 | XMS_ITS | Continuity of Care Document ---
:1995 Author Organization [facility] Address [address] [place] [address]- Care Team Providers Name Role Phone Dayna MAE, Lanny Primary Care Physician [place] [facility] [place] 06/26/22 - 07/26/22 [facility] [address] [place], [place] [address] Allergies, Adverse Reactions, Alerts Substance Reaction Severity Status Ritalin rash Active Cheatham rash Active oral itching Immunizations Given and Recorded Vaccine Date Status Refusal Reason SARS-CoV-2 (COVID-19) mRNA BNT-162b2 vac 08/18/21 Recorde d SARS-CoV-2 (COVID-19) mRNA BNT-162b2 vac 06/18/21 Recorde d tetanus/diphtheria/pertussis, acel(Tdap)1 02/23/21 Given influenza virus vaccine, inactivated 09/27/16 Recorded 1Result Comment: [facility]# [id number] Medications norethindrone 0.35 mg oral tablet 1 tablet = 0.35 mg, By Mouth, Daily, # 28 tablet, 0 Refills, Maintenance, 11/09/21 10:00:00 EST, Tablet, [facility]/pharmacy #[id number], Partial fill upon patient request if the prescription is for a schedule II opioid drug., 158, cm, 07/21/21 19:04:00 EDTPercy... Start Date: 11/09/21 Status: OrderedProAir HFA 90 mcg/inh inhalation aerosol with adapter 2, puffs, Inhalation, Every 6 hours, PRN, # 8.5 Gm, Refills 0, Tot. Refills 0, Maintenance, 11/11/2215:09:00 EST, Aerosol, Route to Pharmacy Electronically, [id number], [id number], 158, cm, 07/21/21 19:04:00 EDRubia Rivas. Start Date: 11/11/21 Status: Ordered Problem List Condition Effective Dates Status Health Status Informant Anxiety(Confirmed) Active Adult BMI 45.0-49.9 kg/sq m(Confirmed) Active Irregular menses(Confirmed) Active MARIO (obstructive sleep Active apnea)(Confirmed) PE (pulmonary Active thromboembolism)(Confirmed) Social History Social History Type Response Smoking Status Never (less than 100 in life time) entered on: 08/13/20 Sex Care Team PersonnelName: Lanny Mcintosh MD Address: [address] [place] [address] Adult [facility] Pediatric [facility] [address]
[2022-09-25 11:30] VITALS: BP 140/70; PULSE 67; RESP 16; TEMP 37.3; O2SAT 97
--- NOTE | 2022-09-25 11:33 | ED_ITS ---
HPI - Abdominal Pain General Chief Complaint: Abdominal Pain Stated Complaint: lower abd pain Time Seen by Provider: 09/25/22 11:18 Source: patient Mode of arrival: ambulatory Limitations: no limitations History of Present Illness HPI narrative: 27-year-old female came in for evaluation of right lower abdominal pain. Right lower abdominal pain started 5 days ago, patient started as intermittent now it is more or less constant and severe 7 out 10, associated with nonbloody watery diarrhea and nausea but no vomiting. Pain radiates toward the right lower back area. No vaginal discharge or bleed, no dysuria, no frequency urination. Patient is sexually active not sure her status. Related Data Home Medications Medication Instructions Recorded Confirmed apixaban 5 mg tablet 5 mg PO BID 11/24/20 11/24/20 Previous Rx's Medication Instructions Recorded oxycodone 5 mg tablet 5 mg PO Q6H PRN pain #7 tabs 04/26/21 lidocaine 5 % topical patch 1 patch topical DAILY PRN pain #15 06/01/22 ea Allergies Allergy/AdvReac Type Severity Reaction Status Date / Time almond [ALMONDS] Allergy Severe THROAT Verified 06/01/22 16:06 SWELLING moore [CHERRIES] Allergy Mild ITCHY Verified 06/01/22 16:06 methylphenidate Allergy Unknown UNKNOWN Verified 06/01/22 16:06 [From RITALIN] Review of Systems Review of Systems All other systems are reviewed and are negative Constitutional: Reports as per HPI and Reports no additional constitutional complaints Eyes: Reports as per HPI and Reports no additional eye complaints Reports system reviewed and no additional complaints, except as documented Cardiovascular: Reports as per HPI and Reports no additional cardiovascular complaints Respiratory: Reports as per HPI and Reports no additional respiratory complaints Gastrointestinal: Reports as per HPI and Reports no additional gastrointestinal complaints Genitourinary: Reports no additional female genitourinary complaints Musculoskeletal: Reports no additional musculoskeletal complaints Skin/Breast: Reports system reviewed and no additional complaints, except as docu Psychiatric: Reports no additional psychiatric complaints Endocrine: Reports no additional endocrine complaints Hematologic/Lymphatic: Reports no additional hematologic/lymphatic complaints Allergic/Immunologic: Reports no additional allergic/immunologic complaints Reports system reviewed and no additional complaints, except as documented and Reports Abnormal speech present PMFSH Past Medical History Medical History Asthma Endometriosis Pulmonary embolism Surgical History History of placement of ear tubes Family History Family History Father No problems noted. Mother No problems noted. Social History Social History Alcohol intake: never Smoked in Last 30 Days: No Use of substances other than those prescribed or required for medical reasons: No Advance Directives: No Advance Directives Information Provided: No Physical Exam ED Vital Signs: Vital Signs - 24 hr 09/25/22 11:01 09/25/22 11:30 09/25/22 13:55 Temperature 98.2 F 99.2 F 98.6 F Pulse Rate 73 67 72 Respiratory Rate 16 16 16 Blood Pressure 129/81 140/70 H 131/98 H Pulse Oximetry 99 97 98 Oxygen Delivery Method Room Air Room Air Room Air 09/25/22 15:25 Temperature 98.5 F Pulse Rate 81 Respiratory Rate 16 Blood Pressure 130/72 Pulse Oximetry 98 Oxygen Delivery Method Room Air BMI result Body Mass Index 45.3 Vital signs have been reviewed as appeared to be correct. Blood pressure normal. Heart rate normal. Respiration rate normal. Temperature normal. Oxygen saturation normal. Appearance: Alert. Oriented X3. No acute distress. Head: Normal external exam. Normocephalic. Atraumatic. No Cardoza signs noted. No raccoon eyes noted Eyes: PERRLA. EOMI. Conjunctiva and sclera normal. Eyelids normal. ENT: TM's Normal. Pharynx normal. Uvula midline. Moist mucous membranes. No trismus noted. No drooling noted. No muffled voice noted. Neck: Normal inspection. Neck supple. FROM. No adenopathy. Thyroid Normal. No meningeal signs. No neck mass noted. CVS: Normal heart rate and rhythm. Heart sound normal. No murmurs noted. Pulses normal throughout. Respiratory: No respiratory distress. Painless inspiration. Breath sounds normal. No wheezes/rales/rhonchi noted. Chest nontender. No accessory muscle usage noted or decreased air movement noted. Abdomen: Soft, right lower quadrant tenderness, no rebound tenderness, no guarding.. Bowel sounds normal in all 4 quadrants. No distention noted. No organomegaly noted. No visible injury noted. Pelvic exam: Deferred for ultrasound. Back: No CVA tenderness. Full range of motion noted. Skin: Skin warm and dry. Normal skin color. Normal skin turgor. No rashes/lesions/lacerations noted. Extremities: No lower extremity edema. Extremities exhibit normal range of motion. Extremities nontender. Neuro: Oriented X 3. Cranial nerve exam: II-XII are grossly intact No motor deficit. No sensory deficit. Reflexes normal. Course Course Course Narrative: 27-year-old female pelvic pain unremarkable CT and ultrasound of the pelvis, unremarkable labs, patient is instructed to take ibuprofen every 6 hours if needed. MDM - Abdominal Pain Medical Records Attestation: I reviewed the patient's medical records. Lab Data Attestation: I reviewed the patient's lab results. Result diagrams: 09/25/22 11:08 09/25/22 11:08 Labs: Lab Results 09/25/22 09/25/22 09/25/22 Range/Units 11:08 11:08 13:32 WBC 9.0 (4.8-10.8) X10*3/uL RBC 5.12 (4.20-5.50) X10*6/uL Hgb 15.0 (12.0-16.0) g/dl Hct 46.4 (37.0-47.0) % MCV 90.6 (80.0-98.0) fL MCH 29.3 (27.0-33.0) pg MCHC 32.3 (31.0-35.0) g/dl RDW 12.6 (11.0-16.0) % Plt Count 222 (160-400) X10*3/uL MPV 11.1 (9.4-12.3) fL Absolute Nucleated RBC 0.000 (0.0-0.012) X10*3/uL Nucleated RBC % (auto) 0.0 (0.0-0.2) /100WBC Sodium 143 (135-145) mmol/L Potassium 4.5 (3.3-5.1) mmol/L Chloride 107 (96-108) mmol/L Carbon Dioxide 28 (22-29) mmol/L Anion Gap 13 (12-20) BUN 14 (9-16) mg/dL Creatinine 0.79 (0.5-1.4) mg/dL Estim Creat Clear Calc 131.5 Estimated GFR > 60 Random Glucose 115 (60-115) mg/dL Calcium 8.9 (8.4-10.2) mg/dL Total Bilirubin 0.8 (0.0-1.0) mg/dL Direct Bilirubin 0.3 (0.0-0.5) mg/dL AST 20 (5-31) U/L ALT 36 H (0-31) U/L Alkaline Phosphatase 75 (39-117) U/L Total Protein 6.7 (6.5-8.0) g/dL Albumin 4.0 (3.5-5.0) g/dL Lipase 23 (8-78) U/L Urine Color Yellow Urine Appearance Clear Urine pH 5.5 (5.0-9.0) Ur Specific [place] 1.020 (1.005-1.025) Urine Protein Negative (Neg-Trace) mg/dL Urine Glucose (UA) Negative (Negative) mg/dL Urine Ketones Negative (Negative) mg/dL Urine Blood Large (3+) H (Negative) Urine Nitrite Negative (Negative) Ur Leukocyte Esterase Small (1+) H (Negative) Urine RBC >20 H (0-2) /HPF Urine WBC 11-20 H (0-5) /HPF Ur Squamous Epith Cells 0-2 (0-2) /HPF Urine Bacteria None Seen (None Seen) Hyaline Casts 0-2 (0-2) /LPF Urine Test (NEGATIVE) 09/25/22 Range/Units 13:32 WBC (4.8-10.8) X10*3/uL RBC (4.20-5.50) X10*6/uL Hgb (12.0-16.0) g/dl Hct (37.0-47.0) % MCV (80.0-98.0) fL MCH (27.0-33.0) pg MCHC (31.0-35.0) g/dl RDW (11.0-16.0) % Plt Count (160-400) X10*3/uL MPV (9.4-12.3) fL Absolute Nucleated RBC (0.0-0.012) X10*3/uL Nucleated RBC % (auto) (0.0-0.2) /100WBC Sodium (135-145) mmol/L Potassium (3.3-5.1) mmol/L Chloride (96-108) mmol/L Carbon Dioxide (22-29) mmol/L Anion Gap (12-20) BUN (9-16) mg/dL Creatinine (0.5-1.4) mg/dL Estim Creat Clear Calc Estimated GFR Random Glucose (60-115) mg/dL Calcium (8.4-10.2) mg/dL Total Bilirubin (0.0-1.0) mg/dL Direct Bilirubin (0.0-0.5) mg/dL AST (5-31) U/L ALT (0-31) U/L Alkaline Phosphatase (39-117) U/L Total Protein (6.5-8.0) g/dL Albumin (3.5-5.0) g/dL Lipase (8-78) U/L Urine Color Urine Appearance Urine pH (5.0-9.0) Ur Specific [place] (1.005-1.025) Urine Protein (Neg-Trace) mg/dL Urine Glucose (UA) (Negative) mg/dL Urine Ketones (Negative) mg/dL Urine Blood (Negative) Urine Nitrite (Negative) Ur Leukocyte Esterase (Negative) Urine RBC (0-2) /HPF Urine WBC (0-5) /HPF Ur Squamous Epith Cells (0-2) /HPF Urine Bacteria (None Seen) Hyaline Casts (0-2) /LPF Urine Test NEGATIVE (NEGATIVE) Imaging Data CT scan - abdomen: Attestation: I personally reviewed and interpreted this imaging study as follows: Radiologist's impression: Mild diverticulosis of the colon. No evidence of diverticulitis. Normal appendix. Small umbilical and supraumbilical hernias containing fat. ? Pelvic ultrasound: Attestation: I personally reviewed and interpreted this imaging study as follows: Radiologist's impression: 1.? Small nabothian cysts in the cervix. 2.? The uterus is unremarkable. 3.? There are small follicular cysts seen in both ovaries. 4.? There is no free fluid in the cul-de-sac. ? Discharge Plan Discharge Clinical Impression: Abdominal pain Patient Disposition: Home, Self-Care Instructions: Pelvic Pain (ED) Prescriptions: No Action apixaban 5 mg Tablet 5 mg PO BID oxycodone 5 mg tablet 5 mg PO Q6H PRN (Reason: pain) Qty: 7 0RF Rx Instructions: Narcotic, no driving for 6 hours after taking lidocaine 5 % adhesive patch,medicated 1 patch topical DAILY PRN (Reason: pain) Qty: 15 0RF Rx Instructions: leave on most painful area for up to 12 hrs Referrals: Oscar Pickard FNP-C [Primary Care Provider] - Stand Alone Forms: Work/School Release
[2022-09-25 11:40] LABS: Alanine Aminotransferase 36 U/L (0-31); Alkaline Phosphatase 75 U/L (39-117); Anion Gap 13 (12-20); Aspartate Amino Transferase 20 U/L (5-31); Bilirubin Direct 0.3 mg/dL (0.0-0.5); Bilirubin Total 0.8 mg/dL (0.0-1.0); Blood Urea Nitrogen 14 mg/dL (9-16); Calcium 8.9 mg/dL (8.4-10.2); Carbon Dioxide 28 mmol/L (22-29); Chloride 107 mmol/L (96-108); Creatinine Clr Calc Pharmacy 131.5; Estimated Glomerular Filt Rate > 60; Glucose Random 115 mg/dL (60-115); Lipase 23 U/L (8-78); Potassium 4.5 mmol/L (3.3-5.1); Sodium 143 mmol/L (135-145); Total Protein 6.7 g/dL (6.5-8.0)
--- NOTE | 2022-09-25 13:27 | PC.NURSE ---
PT A/O X 4 NO SOB/CRISTHIAN NOTED LUNGS - CTA. HEART SOUND REGULAR.. ABD SOFT (OBESE, NON-TENDER, BS + X 4 QUADS.) C/O RLQ ABD PAIN 7/`10 RADIATING TO R BVUYTTOCKS/LOWER BACK AREA. NO EDEMA NOTED. PT AWARE OF PLAN OF CARE.
[2022-09-25 13:51] LABS: Appearance Urine Clear; Color Urine Yellow; Glucose Urine UA Negative (Negative); Leukocyte Esterase Urine Small (1+) (Negative); Nitrite Urine Negative (Negative); PH 5.5 (5.0-9.0); UMIC TRIGGER UACC YES; Urine Blood Large (3+) (Negative); Urine Ketones Negative (Negative); Urine Protein Negative (Neg-Trace)
[2022-09-25 13:52] LABS: UPreg QC Valid YES; Urine Pregnancy NEGATIVE (NEGATIVE)
[2022-09-25 13:55] VITALS: BP 131/98; PULSE 72; RESP 16; TEMP 37; O2SAT 98
[2022-09-25 13:57] LABS: Bacteria Urine None Seen (None Seen); Hyaline Casts Urine 0-2 /LPF (0-2); RBC Urine >20 /HPF (0-2); Squamous Epithelial Cell Urine 0-2 /HPF (0-2); UACC Culture Trigger YES
[2022-09-25 15:25] VITALS: BP 130/72; PULSE 81; RESP 16; TEMP 36.9; O2SAT 98
== END 2022-09-25 17:12 | disposition home or self-care (01) ==
PROVIDERS: Emergency Provider Emergency Medicine; PCP Emergency Medicine
DX: R10.31 Right lower quadrant pain (principal); N88.8 Other specified noninflammatory disorders of cervix uteri; N83.02 Follicular cyst of left ovary; N83.01 Follicular cyst of right ovary
CPT/HCPCS: 36415; 74176; 76830; 76856; 80048; 80076; 81001; 81025; 83690; 85027; 87086; 99284

== ENCOUNTER 2024-01-16 13:40 | Outpatient (AMB) | payer MEDICAID, SELFPAY ==
[2024-01-16 13:49] VITALS: BP 122/82; BMI 50.5
--- NOTE | 2024-01-16 13:49 | A.OFFVIS_ITS ---
Intake Vital Signs 01/16/24 13:49 Height 5 ft 2 in Weight 276 lb BMI 50.5 BP 122/82 Intake Visit Reasons: New patient Annual Intake Note: Was told she had endometriosos at [employer] [facility] [employer] was given pills for it but got a blood clot and was taken off of it, has also had her period for 2 months Director Of Marketing Communications Required: No Information Interpreted: non-clinical & clinical Economics Analyst: Economics Analyst Present (Aidyn) Allergies almond [ALMONDS] Allergy (Severe, Verified 01/16/24 13:51) THROAT SWELLING moore [CHERRIES] Allergy (Mild, Verified 01/16/24 13:51) ITCHY methylphenidate [From RITALIN] Allergy (Unknown, Verified 01/16/24 13:51) UNKNOWN Medication List - Last Reconciled 01/16/24 by Ilene Barajas CNM apixaban 5 mg PO BID cephalexin 500 mg PO Q6H lidocaine 5% 1 patch topical DAILY PRN Is last menstrual period known: No (not sure exact day) Post menopausal: No HPI New patient Annual HPI Details Patient is 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 She was seen previously at [facility] and was told that she had endometriosis and she says that that was diagnosed it during an endometrial biopsy which was being done because of her irregular bleeding pattern which she still has. She was put on control pills and 2 weeks later she developed COVID and then she developed a pulmonary embolism and was hospitalized this was in the beginning of the COVID epidemic pandemic. She was on Eliquis for year. She obviously stop the control pills. She is here today because she wants to be seen because of her irregular bleeding pattern she bleeds for months at a time. She has not been seen since that time at [facility] she tried to be seen at [facility] but she was told that she was too high risk for them because of her blood clot. The patient says she recently went to her new primary care provider and she was treated for boils with an antibiotic but it upset her stomach and she only took 1 pill and she did not take anymore. She also says she was given the antibiotic for a a possible ear infection though she says the doctor thought her ears were okay but they were bothering her. She has a follow-up appointment with the doctor and I urged her to share with him that she did not take the antibiotic course as directed and (I shared with her the dangers of not taking antibiotics as prescribed and how drug resistance occurs and that in future be better to complete the course however she says the boils get better on their own and she puts hot water on them and they get better usually. She has gained maybe 40 lb in the last couple of years. She says she is also going to be referred to the weight management program and the last time she was checked for diabetes or anything like that was a few years ago when she was getting checked for the endometrial biopsy and she said the diabetes testing was negative. She says the endometrial biopsy was extremely painful she said that they were thinking about putting in a Mirena IU S to help her with her bleeding but because the endometrial biopsy was so uncomfortable she was not comfortable with that plan and so hence pills were given [facility] Medical History (Updated 01/16/24 @ 15:46 by Ilene Barajas CNM) Asthma Endometriosis Pulmonary embolism Surgical History History of placement of ear tubes Family History (Updated 01/16/24 @ 13:54 by LITA Pino) Father No problems noted. Mother No problems noted. Maternal Grandmother Breast cancer Social History (Updated 01/16/24 @ 13:54 by LITA Pino) Alcohol intake: current Alcohol intake frequency: holidays/special occasions only Female Reproductive History Menstrual Age of Menarche: 10 Duration of menses: other (irregular) control method: none Total pregnancies: 0 Physical Exam Vital Signs: Last Vital Signs BP 122/82 01/16/24 13:49 BMI result Body Mass Index 50.5 Assessment & Plan Assessment & Plan (1) Hirsutism: Code(s): L68.0 - Hirsutism (2) Pulmonary embolism: Comment: Was on OCPs and had COVID at beginning of COVID pandemic. Code(s): I26.99 - Other pulmonary embolism without acute cor pulmonale (3) Abnormal uterine bleeding (AUB): Code(s): N93.9 - Abnormal uterine and vaginal bleeding, unspecified (4) Obesity: Code(s): E66.9 - Obesity, unspecified (5) Endometriosis: Comment: ??? dxd ew EMBx?? ( pt to get records--suspect it might be a slightly dif word)- mo'b Code(s): N80.9 - Endometriosis, unspecified (6) Obesity, morbid, BMI 50 or higher: Code(s): E66.01 - Morbid (severe) obesity due to excess calories (7) Cervical cancer screening: Comment: Bleeding too much for Pap 01/16/2024. 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 She was seen previously at [facility] and was told that she had endometriosis and she says that that was diagnosed it during an end ometrial biopsy which was being done because of her irregular bleeding pattern which she still has. She was put on control pills and 2 weeks later she developed COVID and then she developed a pulmonary embolism and was hospitalized this was in the beginning of the COVID epidemic pandemic. She was on Eliquis for year. She obviously stop the control pills. She is here today because she wants to be seen because of her irregular bleeding pattern she bleeds for months at a time. She has not been seen since that time at [facility] she tried to be seen at [facility] but she was told that she was too high risk for them because of her blood clot. The patient says she recently went to her new primary care provider and she was treated for boils with an antibiotic but it upset her stomach and she only took 1 pill and she did not take anymore. She also says she was given the antibiotic for a a possible ear infection though she says the doctor thought her ears were okay but they were bothering her. She has a follow-up appointment with the doctor and I urged her to share with him that she did not take the antibiotic course as directed and (I shared with her the dangers of not taking antibiotics as prescribed and how drug resistance occurs and that in future be better to complete the course however she says the boils get better on their own and she puts hot water on them and they get better usually. She has gained maybe 40 lb in the last couple of years. She says she is also going to be referred to the weight management program and the last time she was checked for diabetes or anything like that was a few years ago when she was getting checked for the endometrial biopsy and she said the diabetes testing was negative. She says the endometrial biopsy was extremely painful she said that they were thinking about putting in a Mirena IU S to help her with her bleeding but because the endometrial biopsy was so uncomfortable she was not comfortable with that plan and so hence pills were given I reviewed all of the above in great detail I reviewed the importance of working at weight loss at this time of her life before she gets much older and that she does need to be screened again for diabetes and many other health concerns. Discussed that in general she would not be a candidate for any combination control pill to help manage her bleeding pattern ever again because of her history of the blood clots. The history of COVID at the same time does complicate the question of causality but nevertheless she would be at some high- risk. Discussed with her that her bleeding pattern does need to be investigated and she probably does need a repeat endometrial biopsy and a pelvic ultrasound and we can start with the ultrasound and then proceed to the endometrial biopsy if she can not tolerate it then she can be referred to Dr. Kent and consideration of how best to investigate and treat can proceed from there. Discussed with the patient that she very well may need to be referred back to [facility] as she may have some issues that are too high risk for us here. Patient agreed to try for the ultrasound and the endometrial biopsy if everything is negative and there is no hyperplasia then consideration could be given to a Mirena which would at least help her bleeding pattern there can be some risk of hormone use with a history of blood clots and this was also raised with the patient as well. I urged her to really focus energy on weight loss as much as possible. her grandma recently 2 weeks ago so she has not been to the gym since but is going to try to get back there. I have placed a weight management referral, a request for an urgent ultrasound and we will see her after the ultrasound for an endometrial biopsy, if it it is possible to do. she was bleeding too much for a Pap smear today so that will also need to be done in the future. She has not sexually active and I urged her to continue to be abstinent until this is all investigated. Orders: Orders US pelvic and transvaginal Today E66.9 - Obesity, unspecified, I26.99 - Other pulmonary embolism without acute cor pulmonale, L68.0 - Hirsutism, N80.9 - Endometriosis, unspecified, N93.9 - Abnormal uterine and vaginal bleeding, unspecified Bacterial Vaginosis Panel Today Z11.3 - Encounter for screening for infections with a predominantly sexual mode of transmission CT NG by PCR Today Z11.3 - Encounter for screening for infections with a predominantly sexual mode of transmission Referrals Medical Weight Management Referral E66.01 - Morbid (severe) obesity due to excess calories, E66.9 - Obesity, unspecified, I26.99 - Other pulmonary embolism without acute cor pulmonale, L68.0 - Hirsutism, N80.9 - Endometriosis, unspecified, N93.9 - Abnormal uterine and vaginal bleeding, unspecified Coding Level of Care Code New Pt Prev Care [id number] Diagnoses Hirsutism L68.0 Pulmonary embolism I26.99 Abnormal uterine bleeding (AUB) N93.9 Obesity E66.9 Endometriosis N80.9 Obesity, morbid, BMI 50 or higher E66.01 Cervical cancer screening Z12.4
== END 2024-01-16 15:14 | disposition home or self-care (01) ==
PROVIDERS: PCP Emergency Medicine; Visit Provider Advanced Practice Midwife
DX: L68.0 Hirsutism (principal); I26.99 Other pulmonary embolism without acute cor pulmonale; N93.9 Abnormal uterine and vaginal bleeding, unspecified; E66.9 Obesity, unspecified; N80.9 Endometriosis, unspecified; E66.01 Morbid (severe) obesity due to excess calories; Z12.4 Encounter for screening for malignant neoplasm of cervix
CPT/HCPCS: 99385

== ENCOUNTER 2024-01-16 13:40 | Outpatient (REF) | payer MEDICAID, SELFPAY ==
[2024-01-17 11:46] LABS: CT PCR NOT DETECTED (Not Detect.); NG PCR NOT DETECTED (Not Detect.)
[2024-01-17 14:05] LABS: BV Int Neg Control Negative (Negative); BV Int Pos Control Positive (Positive)
== END 2024-01-16 13:41 | disposition home or self-care (01) ==
LOC: HO.LNP 13:40
PROVIDERS: PCP Emergency Medicine; Visit Provider Advanced Practice Midwife
DX: Z01.419 Encounter for gynecological examination (general) (routine) without abnormal findings (principal); L68.0 Hirsutism; I26.99 Other pulmonary embolism without acute cor pulmonale; N93.9 Abnormal uterine and vaginal bleeding, unspecified; N80.9 Endometriosis, unspecified; E66.01 Morbid (severe) obesity due to excess calories; Z11.3 Encounter for screening for infections with a predominantly sexual mode of transmission; Z68.43 Body mass index [BMI] 50.0-59.9, adult; Z79.899 Other long term (current) drug therapy
CPT/HCPCS: 0353U; 87480; 87510; 87660; 99385

== ENCOUNTER 2024-01-24 13:59 | Outpatient (REF) | payer MEDICAID, SELFPAY ==
--- NOTE | ~2024-01-24 | US_ITS ---
EXAMINATION: US PELVIS CLINICAL INFORMATION: Obesity COMPARISON: None available. TECHNIQUE: Ultrasound of the pelvis is performed using both transabdominal and transvaginal transducers along with Doppler. Transvaginal imaging is performed due to inadequate visualization transabdominally. FINDINGS: Uterus: The uterus is anteverted, anteflexed and measures 6.9 x 3.2 x 5.8 cm The double wall endometrial thickness is 2.0 cm. The uterus is smooth in contour and has normal myometrial echogenicity. No visible fibroid. Adnexa: Both ovaries are visualized. There is normal color flow to the adnexa. There is no ovarian torsion. There is no pelvic ascites or fluid collection. Right ovary measures 3.8 x 2.2 x 2.3 cm and volume 10 mL. Previously it measured 3.5 x 2.6 x 2.3 cm. Left ovary measures 4.1 x 2.4 x 2.6 cm and volume 13.4 mL. There is a paraovarian cyst measuring 0.7 x 0.5 x 0.8 cm. US/US pelvic and transvaginal IMPRESSION: Left paraovarian cyst. Otherwise unremarkable ovaries and uterus. Thickened endometrium measuring 2 cm. No focal endometrial lesion seen Correlate with clinical exam.
== END 2024-01-24 14:00 | disposition home or self-care (01) ==
LOC: HO.US 13:59
PROVIDERS: PCP Internal Medicine; Visit Provider Advanced Practice Midwife
DX: N93.9 Abnormal uterine and vaginal bleeding, unspecified (principal); N80.9 Endometriosis, unspecified; L68.0 Hirsutism; E66.9 Obesity, unspecified; I26.99 Other pulmonary embolism without acute cor pulmonale
CPT/HCPCS: 76830; 76856

== ENCOUNTER → 2024-01-28 12:48 | Outpatient (BNVA) | payer MEDICAID, SELFPAY | PROVIDERS: PCP Internal Medicine; Visit Provider Physician Assistant Surgical ==

== ENCOUNTER 2024-01-31 09:39 | Outpatient (AMB) | payer MEDICAID, SELFPAY ==
--- NOTE | 2024-01-31 09:41 | MHC.OFFVIS ---
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: No Information Interpreted: non-clinical & clinical Sole Molder: Sole Molder Present (Jax) Allergies almond [ALMONDS] Allergy (Severe, Verified 01/31/24 09:48) THROAT SWELLING moore [CHERRIES] Allergy (Mild, Verified 01/31/24 09:48) ITCHY methylphenidate [From RITALIN] Allergy (Unknown, Verified 01/31/24 09:48) UNKNOWN Medication List - Last Reconciled 01/31/24 by Ilene Barajas CNM cephalexin 500 mg PO Q6H Post menopausal: No HPI Ultra sound follow up HPI Details To review patient's ultrasound results as well as review her medical records from [facility] from 2019 when she was seen and evaluated there for similar problem with abnormal bleeding. She had an endometrial biopsy done because she had a thickened endometrium could not rule out hyperplasia on ultrasound the endometrial biopsy showed chronic endometritis. As well as other findings. She was recommended to have an Mirena IU S but when she was told to fully that it would be the same discomfort as the EMB which she found extremely painful she did not wish to do that she was placed on control pills but it was at the beginning of COVID she developed COVID and then she had blood clots and was hospitalized. She then was on blood thinners and she no longer can take any product with estrogen. She has continued to be overweight though she has had some weight fluctuations over the years she has not been sexually active in the last year. She has had very irregular and abnormal blue bleeding she says her last period started a couple of months ago but it never has gone away comes and goes. She was referred to the weight management program and had an appointment there recently and she did sign paperwork and fill out a lot of paperwork and have a discussion with ?the nurse? but needs to wait for a phone call to find out about an appointment and it may be some months she was told. She said the only option they talked about was the surgery. [facility] Medical History Asthma Endometriosis Pulmonary embolism Surgical History History of placement of ear tubes Family History Father No problems noted. Mother No problems noted. Maternal Grandmother Breast cancer Social History Alcohol intake: current Alcohol intake frequency: holidays/special occasions only Patient Tobacco Use Status: Never used Tobacco Female Reproductive History Menstrual Age of Menarche: 10 control method: none Date of last pap smear: 08/10/20 (negative) Physical Exam Vital Signs: Last Vital Signs BP 122/62 01/31/24 09:42 BMI result Body Mass Index 50.3 Results Reviewed Results Reviewed: Patient: José Miguel Regan MR#: [id number] : 1995 Acct:[id number] Age/Sex: 28 / F ADM Date: 01/24/24 Loc: HO.US Attending Dr: Ilene Barajas CNM Ordering Physician: Ilene Barajas CNM Date of Service: 01/24/24 Procedure(s): US pelvic and transvaginal Accession Number(s): [id number] cc: Rigoberto Michel MD; Ilene Barajas CNM~ EXAMINATION: US PELVIS CLINICAL INFORMATION: Obesity COMPARISON: None available. TECHNIQUE: Ultrasound of the pelvis is performed using both transabdominal and transvaginal transducers along with Doppler. Transvaginal imaging is performed due to inadequate visualization transabdominally. FINDINGS: Uterus: The uterus is anteverted, anteflexed and measures 6.9 x 3.2 x 5.8 cm The double wall endometrial thickness is 2.0 cm. The uterus is smooth in contour and has normal myometrial echogenicity. No visible fibroid. Adnexa: Both ovaries are visualized. There is normal color flow to the adnexa. There is no ovarian torsion. There is no pelvic ascites or fluid collection. Right ovary measures 3.8 x 2.2 x 2.3 cm and volume 10 mL. Previously it measured 3.5 x 2.6 x 2.3 cm. Left ovary measures 4.1 x 2.4 x 2.6 cm and volume 13.4 mL. There is a paraovarian cyst measuring 0.7 x 0.5 x 0.8 cm. US/US pelvic and transvaginal IMPRESSION: Left paraovarian cyst. Otherwise unremarkable ovaries and uterus. Thickened endometrium measuring 2 cm. No focal endometrial lesion seen Correlate with clinical exam. Dictated By: Gallo Rothman MD Signed By: <Electronically signed by Gallo Rothman MD in OV> 01/25/24 0908 DD/ 1453 TD/TT: Embroidery Worker: CELSO I also reviewed all of the results and notes from [facility] from 2019 showing endometritis on endometrial biopsy results (note it was not endometriosis as the patient had stated) Assessment & Plan Assessment & Plan (1) Endometritis: Comment: per 2019 Code(s): N71.9 - Inflammatory disease of uterus, unspecified (2) Cervical cancer screening: Comment: Bleeding too much for Pap 01/16/2024. due in future Code(s): Z12.4 - Encounter for screening for malignant neoplasm of cervix (3) Obesity, morbid, BMI 50 or higher: Code(s): E66.01 - Morbid (severe) obesity due to excess calories (4) Hirsutism: Code(s): L68.0 - Hirsutism (5) Pulmonary embolism: Comment: Was on OCPs and had COVID at beginning of COVID pandemic. Code(s): I26.99 - Other pulmonary embolism without acute cor pulmonale (6) Abnormal uterine bleeding (AUB): Code(s): N93.9 - Abnormal uterine and vaginal bleeding, unspecified Plan To review patient's ultrasound results as well as review her medical records from [facility] from 2019 when she was seen and evaluated there for similar problem with abnormal bleeding. She had an endometrial biopsy done because she had a thickened endometrium could not rule out hyperplasia on ultrasound the endometrial biopsy showed chronic endometritis. As well as other findings. She was recommended to have an Mirena IU S but when she was told to fully that it would be the same discomfort as the EMB which she found extremely painful she did not wish to do that she was placed on control pills but it was at the beginning of COVID she developed COVID and then she had blood clots and was hospitalized. She then was on blood thinners and she no longer can take any product with estrogen. She has continued to be overweight though she has had some weight fluctuations over the years she has not been sexually active in the last year. She has had very irregular and abnormal blue bleeding she says her last period started a couple of months ago but it never has gone away comes and goes. She was referred to the weight management program and had an appointment there recently and she did sign paperwork and fill out a lot of paperwork and have a discussion with ?the nurse? but needs to wait for a phone call to find out about an appointment and it may be some months she was told. She said the only option they talked about was the surgery. This was an extensive visit explaining the patient's long-term history of obesity and the history of abnormal bleeding all related to the abnormal hormonal milieu created by the obesity. Discussed also the increased risk she has for all the metabolic dyscrasias including hypertension liver problems and diabetes. She is still awaiting some blood work to be done by the weight management program. Discussed the abnormal bleeding pattern in the face of the elevated hormones and that the bleeding is the symptom of what is going on. The endometrial biopsy she had in the past was 4 years ago and she really does need to have another 1 she is unwilling to face into having that or another discussion about a Mirena because of the concern and anxiety about the pain of the procedure she asked if it could be done under anesthesia and I shared that it is usually but it is a question she can discuss with Dr. Kent. Explained all the reasons why she really does need to have an endometrial biopsy and if it is okay that she really should consider having a Mirena placed and then focus her energy on her weight loss journey before considering childbearing. Her next appointment will be with Dr. Zerbe to discuss options about how to proceed with this. Encouraged her to actually take this time to really get her health in a better situation discussed that a Mirena would be probably recommended for many reasons during this journey as well as it would be her best option to help control her bleeding patterns and also reliable contraception is necessary. Coding Level of Care Code Est Pt Level 3 (46721) Diagnoses Endometritis N71.9 Cervical cancer screening Z12.4 Obesity, morbid, BMI 50 or higher E66.01 Hirsutism L68.0 Pulmonary embolism I26.99 Abnormal uterine bleeding (AUB) N93.9 Time Spent (min) 35 Comment 100#% face to face explaining medical challenges/management
[2024-01-31 09:42] VITALS: BP 122/62; BMI 50.3
== END 2024-01-31 10:38 | disposition home or self-care (01) ==
PROVIDERS: PCP Emergency Medicine; Visit Provider Advanced Practice Midwife
DX: N71.9 Inflammatory disease of uterus, unspecified (principal); Z12.4 Encounter for screening for malignant neoplasm of cervix; E66.01 Morbid (severe) obesity due to excess calories; L68.0 Hirsutism; I26.99 Other pulmonary embolism without acute cor pulmonale; N93.9 Abnormal uterine and vaginal bleeding, unspecified
CPT/HCPCS: 99213

== ENCOUNTER → 2024-01-31 09:39 | Outpatient (BNVA) | payer MEDICAID, SELFPAY | PROVIDERS: PCP Emergency Medicine; Visit Provider Advanced Practice Midwife | DX: N71.9 Inflammatory disease of uterus, unspecified (principal); Z12.4 Encounter for screening for malignant neoplasm of cervix; N93.9 Abnormal uterine and vaginal bleeding, unspecified; L68.0 Hirsutism; I26.99 Other pulmonary embolism without acute cor pulmonale; E66.01 Morbid (severe) obesity due to excess calories; Z68.43 Body mass index [BMI] 50.0-59.9, adult | CPT/HCPCS: 99212 ==

== ENCOUNTER 2024-03-21 09:29 | Outpatient (AMB) | payer MEDICAID, SELFPAY ==
--- NOTE | 2024-03-21 13:10 | MHC.OFFVISWM ---
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 49.3: Details: Start time: 1.02pm, End time: 1.42pm ?I spent 35 minutes speaking with the patient on the phone plus an additional 5 minutes reviewing and updating records for a total of 40 minutes HPI Comments Details: Previous weight loss efforts: exercise Wakes up: 6am, Sleeps: 12am Breakfast: skips Lunch: 11-1pm (fast food) Dinner: 4pm (rice, pasta, salad) Snacks: 3pm (chips) Exercise: none Fluids: Coffee/Tea: none, Soda (Regular Coke), juice: 2 glasses/day, ETOH: 1/week (Whiskey) [facility] Medical History (Updated 03/21/24 @ 13:14 by Viet Choudhary MD) Morbid obesity Asthma Endometriosis Pulmonary embolism Surgical History History of placement of ear tubes Family History Father No problems noted. Mother No problems noted. Maternal Grandmother Breast cancer Social History Alcohol intake: current Alcohol intake frequency: holidays/special occasions only Patient Tobacco Use Status: Never used Tobacco Female Reproductive History Menstrual Age of Menarche: 10 Telehealth Telehealth Telehealth Platform: Telephone Location of provider rendering services: practice address Location of patient: address on file Patient Identification confirmed using: Name, : Yes Telehealth method: voice only Patient verbally consented to treatment: Yes Patient verbally consented to billing insurance company: Yes Patient informed of any privacy concerns related to visit: Yes Minutes spent on Phone/Video with Pt.: 40 Assessment & Plan Assessment & Plan (1) Morbid obesity: Code(s): E66.01 - Morbid (severe) obesity due to excess calories Category: Medical Plan: 1.? Plan for lap sleeve gastrectomy. If diaphragmatic or ventral hernias are present at time of surgery, these will be repaired laparoscopically as well. Risks and complications were discussed in detail including possible conversion to an open procedure, anastomotic leak, bleeding requiring transfusion, small bowel obstruction, , DVT and pulmonary embolism, cardiac, or pulmonary complications, as exterminator complications such as anastomotic ulcer, insufficient weight loss and vitamin deficiencies. I emphasized the importance of close follow-up, adherence to instructions and good communication. 2. You will receive a link of our software merari to generate an individualized nutritional and exercise plan specific for you. Please send me a screenshot of the plans you will generate Meal to include lean meat (beef, fish, pork, turkey, chicken), or welsh yogurt, or egg whites, or beans with a salad with olive oil and fruits (berries, pears, apples, kiwi). Avoid salt, breads, potatoes, rice, pasta, desserts. ?3. If you choose shakes, each shake would be drunk slowly, like coffee in a period of 2 hours. ?4. If you choose bars, cut each bar in 4 pieces and eat each piece in 30min ?to make each bar last 2 hours. ?5. I emphasized the importance of measuring accurately the food portion and measure it when serving the food in plate ?6. The meal portions include a specific number of forks of meat and salad. You always eat the meat portion but you can replace up to half of salad/vegetables portion with rice, potatoes or pasta, or a fruit ?if you like. The less you do it the better weight loss will be. ?7. One full-size fork is what it can be scooped on the fork without falling aside and not what can be bit with the fork. Use regular forks like those you find in a typical restaurant. ?8.? Please send me weight measurements as soon as possible and then once a week. Always include your diet and exercise plan. 9. The best choice would be to purchase a stationary bike, elliptical or treadmill at home that can track calories. Let me know if you do so I can give you an exercise plan. ?10.?It is important of avoiding and for at least 18 months postoperatively and has been discussed at the infosession. ?11. Goal is to lose at least 1.5-2lbs per week ?12. Goal to lose 10% of your weight before surgery, which is about 27lbs. Ultimate weight goal: 242lbs before surgery 13. Please follow the diet plan exactly without any change. If you don't like something about the plan or you feel hungry you need to communicate with me so I can help you revise the plan. You should not change the plan yourself. 14. To be scheduled for EGD due to history of GERD. The possibility of biopsies was discussed. Patient needs to avoid use of NSAIDs and aspirin for 1 week prior to EGD. Risks of perforation and? bleeding was discussed with the patient. This will be an outpatient procedure with IV sedation. Orders: Orders Hemoglobin A1c Today E66.01 - Morbid (severe) obesity due to excess calories H Pylori Breath Test Today E66.01 - Morbid (severe) obesity due to excess calories Lipid Panel Today E66.01 - Morbid (severe) obesity due to excess calories IRON PROFILE Today E66.01 - Morbid (severe) obesity due to excess calories Zinc Today E66.01 - Morbid (severe) obesity due to excess calories C Reactive Protein Today E66.01 - Morbid (severe) obesity due to excess calories Vitamin B1 Today E66.01 - Morbid (severe) obesity due to excess calories Vitamin A Today E66.01 - Morbid (severe) obesity due to excess calories Ferritin Today E66.01 - Morbid (severe) obesity due to excess calories XR chest 2V Today E66.01 - Morbid (severe) obesity due to excess calories ECG 12 lead EKG Today E66.01 - Morbid (severe) obesity due to excess calories Insulin Today E66.01 - Morbid (severe) obesity due to excess calories Complete Blood Count Auto Diff Today E66.01 - Morbid (severe) obesity due to excess calories Comprehensive Met. Panel Today E66.01 - Morbid (severe) obesity due to excess calories Vitamin B12 and Folate Today E66.01 - Morbid (severe) obesity due to excess calories TSH reflex Free T4 Today E66.01 - Morbid (severe) obesity due to excess calories Vitamin D 25-OH Total Today E66.01 - Morbid (severe) obesity due to excess calories US abdomen comp w elastography Today E66.01 - Morbid (severe) obesity due to excess calories FL upper GI w air Today E66.01 - Morbid (severe) obesity due to excess calories Referrals Behavioral Health Referral E66.01 - Morbid (severe) obesity due to excess calories Nutrition/Dietitian Referral E66.01 - Morbid (severe) obesity due to excess calories
[2024-03-21 13:20] VITALS: BMI 49.2
== END 2024-03-21 13:42 | disposition home or self-care (01) ==
PROVIDERS: PCP Internal Medicine; Referring Provider Internal Medicine; Visit Provider Surgery
DX: E66.01 Morbid (severe) obesity due to excess calories (principal); Z68.42 Body mass index [BMI] 45.0-49.9, adult
CPT/HCPCS: 99203

== ENCOUNTER → 2024-03-21 09:29 | Outpatient (BNVA) | payer MEDICAID, SELFPAY | PROVIDERS: PCP Internal Medicine; Visit Provider Surgery ==

== ENCOUNTER 2024-04-08 13:03 | Outpatient (AMB) | payer OTHER, SELFPAY ==
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
== END 2024-04-08 14:31 | disposition home or self-care (01) ==
LOC: HO.HBST 13:03
PROVIDERS: PCP Internal Medicine; Visit Provider Counselor Mental Health
DX: F33.1 Major depressive disorder, recurrent, moderate (principal); E66.9 Obesity, unspecified
CPT/HCPCS: 90834

== ENCOUNTER → 2024-04-08 13:03 | Outpatient (BNVA) | payer MEDICAID, SELFPAY | PROVIDERS: PCP Internal Medicine; Visit Provider Counselor Mental Health ==

== ENCOUNTER 2024-04-19 00:47 | Emergency (ER) | payer MEDICAID, SELFPAY ==
[2024-04-19 00:48] VITALS: BP 138/66; PULSE 76; RESP 18; TEMP 36.8; O2SAT 97; BMI 48.7
[2024-04-19] MEDS: Ketorolac Tromethamine 60 MG/2 ML VIAL IM (01:46)
--- NOTE | 2024-04-19 01:47 | ED_ITS ---
HPI - General Adult General Chief complaint: General Medical Stated complaint: right side neck/side of face pressure Time Seen by Provider: 04/19/24 00:56 Source: patient Mode of arrival: ambulatory Limitations: no limitations History of Present Illness ED Provider: Dr. Clementina Lopez HPI narrative: Patient comes to the emergency room complaining of right-sided neck pain. Patient states it has been going on for about 2 weeks. Patient states that she went to see her dentist, dental pain was ruled out and patient was asked to come to the emergency room. Patient states that the pain feels more to the lateral aspect of the neck. Pain gets worse with certain neck movements. Patient denies any injury. Patient states that sometimes she feels the pain more when she wakes up in the morning. Denies any heavy lifting. Related Data Previous Rx's ?Medication ?Instructions ?Recorded cyclobenzaprine 10 mg tablet 10 mg PO TID PRN muscle spasm #10 04/19/24 tabs ketorolac 10 mg tablet 10 mg PO Q8H PRN pain #10 tabs 04/19/24 Allergies Allergy/AdvReac Type Severity Reaction Status Date / Time almond [ALMONDS] Allergy Severe THROAT Verified 04/19/24 00:51 SWELLING moore [CHERRIES] Allergy Mild ITCHY Verified 04/19/24 00:51 methylphenidate Allergy Unknown UNKNOWN Verified 04/19/24 00:51 [From RITALIN] Review of Systems Review of Systems: Constitutional : No Weight loss, No Fever, No Chills, No Night Sweats, No Fatigue, No Malaise ENT/Mouth : No Hearing loss, No Ear Pain, No Nasal Congestion, No Sinus Pain, No Hoarseness, No sore throat, No Rhinorrhea, No Swallowing Difficulty Eyes: No Eye Pain, No Swelling, No Redness, No Foreign Body, No Discharge, No Vision Changes Cardiovascular : No Chest Pain, No SOB, No Dyspnea on Exertion, No Orthopnea, No Edema, No Palpitations Respiratory : No Cough, No Sputum, No Wheezing, No Smoke Exposure, No Dyspnea Gastrointestinal : No Nausea, No Vomiting, No Diarrhea, No Constipation, No abdominal Pain, No Hematochezia, No Melena Genitourinary : no irregular bleeding, No Dysuria, No Urinary Frequency, No Hematuria, No Urinary Incontinence, No Urgency, No Flank Pain, No Urinary Flow Changes, No Hesitancy Musculoskeletal : No joint pain, No Myalgias, No Joint Swelling Skin : No Skin Lesions, No rash Neuro : No Weakness, No Numbness, No Paresthesias, No Loss of Consciousness, No Dizziness, No Headache Psych : No Anxiety/Panic, No Depression, No SI/HI/AH/VH, No Social Issues, Heme/Lymph: No Bruising, No Bleeding,No Lymphadenopathy Endocrine : No Polyuria, No Polydipsia, No Temperature Intolerance [facility] Past Medical History Medical History (Updated 04/19/24 @ 01:43 by Clementina Lopez MD) Morbid obesity Asthma Endometriosis Pulmonary embolism Surgical History History of placement of ear tubes Family History Family History Father No problems noted. Mother No problems noted. Maternal Grandmother Breast cancer Social History Social History Alcohol intake: never Patient Tobacco Use Status: Never used Tobacco Smoked in Last 30 Days: No Use of substances other than those prescribed or required for medical reasons: Yes Substance Use Type: Marijuana Advance Directives: No Advance Directives Information Provided: Yes Do you have a plan to hurt others: No Plan Patient : No Physical Exam ED Vital Signs: Vital Signs - 24 hr 04/19/24 00:48 Temperature 98.2 F Pulse Rate 76 Respiratory Rate 18 Blood Pressure 138/66 Pulse Oximetry 97 Oxygen Delivery Method Room Air BMI result Body Mass Index 48.7 Const Other: Appearance: Alert. Oriented X3. No acute distress. Eyes: Pupils equal, round and reactive to light. ENT: Pharynx normal. No molar abnormalities, old scarring in the tympanic membrane on the right, no erythema Neck: Normal inspection. Patient has a fairly prominent sternocleidomastoid muscle only in the right. Patient had has pain to palpation over that muscle. CVS: Normal heart rate and rhythm. Pulses normal. Normal S1 and S2 Respiratory: No respiratory distress. Breath sounds normal. No Wheezing. No rales Abdomen: Soft and nontender. No rigidity. No distention. Skin: Skin warm and dry. Normal skin color. Normal skin turgor. Extremities: No lower extremity edema. No Lacerations. No Rash Neuro: Oriented X 3. No motor deficit. No sensory deficit. Moving all extremities. No slurred speech. CN 2 through 12 grossly intact Psych: calm, cooperative, normal affect Medications Administered Discontinued Medications Generic Name Dose Route Start Last Admin Trade Name Warrenq PRN Reason Stop Dose Admin Ketorolac Tromethamine 60 mg 04/19/24 01:39 04/19/24 01:46 Ketorolac Tromethamine 60 Mg/2 Ml Vial IM 04/19/24 01:40 60 mg ONCE ONE Administration Medical Decision Making Medical Decision Making [facility] Narrative: I discussed the physical exam with the patient, patient likely has musculoskeletal pain, specifically in the sternocleidomastoid area. -patient was given IM ketorolac. Patient will be driving herself home therefore cyclobenzaprine was sent to the pharmacy and not given in the ED, patient agreeable with plan. -discussed with the patient's stretching exercises for the head neck and upper back area. Differential Diagnosis Differential Diagnoses: The differential diagnosis associated with the presentation includes (Dental pain, otitis, musculoskeletal pain) Discharge Plan Discharge Clinical Impression: Neck muscle spasm Patient Disposition: Home, Self-Care Instructions: Muscle Spasm (ED) Additional Instructions: Please follow-up with your primary care physician tomorrow. If you have any worsening or new symptoms, please return to the emergency room or call 911 Prescriptions: New cyclobenzaprine 10 mg tablet 10 mg PO TID PRN (Reason: muscle spasm) Qty: 10 0RF Rx Instructions: Do not take this medication before driving or using machinery ketorolac 10 mg tablet 10 mg PO Q8H PRN (Reason: pain) Qty: 10 0RF Rx Instructions: maximum total duration of 5 days from all oral, intranasal, or parenteral formulations. Do not use this medication with NSAIDs, only Tylenol if needed Stand Alone Forms: Work/School Release Interventions: ED Discharge Assessment Last Done: 04/19/24 01:52 Print Language: Citizen Of [place]
[2024-04-19 01:52] VITALS: BP 118/68; PULSE 69; RESP 16; TEMP 36.8; O2SAT 98
== END 2024-04-19 01:53 | disposition home or self-care (01) ==
PROVIDERS: Emergency Provider Emergency Medicine; PCP Internal Medicine
DX: M62.838 Other muscle spasm (principal); M54.2 Cervicalgia; Z86.711 Personal history of pulmonary embolism
CPT/HCPCS: 96372; 99283; 99284; J1885

== ENCOUNTER 2024-04-23 12:46 | Outpatient (AMB) | payer MEDICAID, SELFPAY ==
--- NOTE | 2024-04-23 12:50 | MHC.OFFVISWM ---
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 She was initially seen on 03/21/2024 with a weight of 269.2 lb and a BMI of 49.2. Weight today is 263.6 lb with a BMI of 48.2. She has lost 5.6 lb or 2% total body weight loss. She states that she is having difficulty with having her shake at work. 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 We have provided her a note stating that she is required to have a specialized meal plan requiring protein shakes and protein bars at her desk. Labs were ordered but not yet obtained. She states that she is trying to follow the meal plan as outlined by the right BMI merari. Meal plan: Pure protein, 1.5 scoops in 8 oz almond milk, 7-9 ZP bar 10-12 another shake 2-4 meal at 6, 9 forks protein, 9 forks salad/veg Drinking 64 oz water Exercise plan: walking outside 2 days per week. not tracking calories gym 2 days per week, treadmill 30 min, speed 2.4-5, incline 1. [facility] Medical History (Updated 04/20/24 @ 00:01 by Matt Sylvester) Morbid obesity Asthma Endometriosis Pulmonary embolism Surgical History History of placement of ear tubes Family History Father No problems noted. Mother No problems noted. Maternal Grandmother Breast cancer Social History (Updated 04/23/24 @ 12:53 by Jojo Lopez CMA) Alcohol intake: never Patient Tobacco Use Status: Never used Tobacco Substance Use Type: Marijuana Female Reproductive History Menstrual Age of Menarche: 10 Physical Exam Const General: healthy appearing and no acute distress Resp Effort & Inspection: normal respiratory effort Auscultation: clear to auscultation bilaterally Cardio Rate: regular rate Rhythm: regular rhythm GI Auscultation: normal bowel sounds Extrem General: Yes normal to inspection Assessment & Plan Assessment & Plan (1) Morbid obesity: Code(s): E66.01 - Morbid (severe) obesity due to excess calories Category: Medical Plan: Instructed patient to follow the meal plan exactly. Continue to follow the merari. discussed the importance of tracking calories accurately, both on the treadmill at the gym and while using [employer]elt[employer] merari to track calories while walking outside. In forced the goal is 300 calories burned per day. She has been given my cell phone number to text me her weight measurements weekly. Return to clinic 1 month.
[2024-04-23 12:58] VITALS: BP 131/66; PULSE 86; TEMP 36.4; O2SAT 95; BMI 48.2
== END 2024-04-23 13:22 | disposition home or self-care (01) ==
PROVIDERS: PCP Internal Medicine; Visit Provider Physician Assistant Surgical
DX: E66.01 Morbid (severe) obesity due to excess calories (principal)
CPT/HCPCS: 99213

== ENCOUNTER → 2024-04-23 12:46 | Outpatient (BNVA) | payer MEDICAID, SELFPAY | PROVIDERS: PCP Internal Medicine; Visit Provider Physician Assistant Surgical | DX: E66.01 Morbid (severe) obesity due to excess calories (principal); Z68.42 Body mass index [BMI] 45.0-49.9, adult | CPT/HCPCS: 99212 ==

== ENCOUNTER 2024-04-29 13:11 | Outpatient (AMB) | payer OTHER, SELFPAY ==
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
== END 2024-04-29 13:21 | disposition home or self-care (01) ==
LOC: HO.HBST 13:11
PROVIDERS: PCP Internal Medicine; Visit Provider Counselor Mental Health
DX: F33.1 Major depressive disorder, recurrent, moderate (principal); E66.9 Obesity, unspecified
CPT/HCPCS: 90832

== ENCOUNTER → 2024-04-29 13:11 | Outpatient (BNVA) | payer MEDICAID, SELFPAY | PROVIDERS: PCP Internal Medicine; Visit Provider Counselor Mental Health ==

== ENCOUNTER 2024-04-30 10:41 | Day surgery (SDC) | payer MEDICAID, SELFPAY ==
--- NOTE | 2024-04-28 15:35 | HO.ANESPROP2 ---
Documented by User: Radha Galan NP 04/28/24 15:35 HPI - Anesthesia Eval Consult details Narrative: 28yo F for Upper Endoscopy Hx PE, no OAC PMFSH Active Problems Active Problems: All Active Problems Major depressive disorder, recurrent, moderate (Acute) Morbid obesity (Acute) Endometritis (Acute) Cervical cancer screening (Acute) Obesity, morbid, BMI 50 or higher (Acute) Endometriosis (Acute) Hirsutism (Acute) Pulmonary embolism (Acute) Abnormal uterine bleeding (AUB) (Acute) Obesity (Acute) Past Medical History Medical History Febrile seizures Sleep apnea Morbid obesity Asthma Endometriosis Pulmonary embolism Family History Family History Father No problems noted. Mother No problems noted. Maternal Grandmother Breast cancer Surgical History Surgical History History of placement of ear tubes Social History Social History Alcohol intake: never Patient Tobacco Use Status: Never used Tobacco Use of substances other than those prescribed or required for medical reasons: Yes Substance Use Type: Marijuana Are you DNR?: No Advance Directives: No Advance Directives Information Provided: Yes Meds Allergies Allergy/AdvReac Type Severity Reaction Status Date / Time almond [ALMONDS] Allergy Severe THROAT Verified 04/23/24 12:52 SWELLING methylphenidate Allergy Severe UNKNOWN Verified 04/30/24 10:58 [From RITALIN] moore [CHERRIES] Allergy Mild ITCHY Verified 04/23/24 12:52 Assessment and Plan Assessment Anesthesia Assessment: Chart Reviewed Documented by User: Jennifer Shankar MD 04/30/24 11:27 PMFSH Active Problems Active Problems: All Active Problems Major depressive disorder, recurrent, moderate (Acute) Morbid obesity (Acute) BMI 48.1 Endometritis (Acute) Cervical cancer screening (Acute) Obesity, morbid, BMI 50 or higher (Acute) Endometriosis (Acute) Hirsutism (Acute) Pulmonary embolism (Acute) 2 years ago. No longer on anticoagulants Abnormal uterine bleeding (AUB) (Acute) Denies MARIO Marijuana use a few hours ago Past Medical History Medical History Febrile seizures Sleep apnea Morbid obesity Asthma Endometriosis Pulmonary embolism Family History Family History Father No problems noted. Mother No problems noted. Maternal Grandmother Breast cancer Family history of problems with anesthesia: No Surgical History Surgical History History of placement of ear tubes History of Problems with Anesthesia: No Social History Social History Alcohol intake: never Patient Tobacco Use Status: Never used Tobacco Use of substances other than those prescribed or required for medical reasons: Yes Substance Use Type: Marijuana Are you DNR?: No Advance Directives: No Advance Directives Information Provided: Yes Meds Allergies Allergy/AdvReac Type Severity Reaction Status Date / Time almond [ALMONDS] Allergy Severe THROAT Verified 04/23/24 12:52 SWELLING methylphenidate Allergy Severe UNKNOWN Verified 04/30/24 10:58 [From RITALIN] moore [CHERRIES] Allergy Mild ITCHY Verified 04/23/24 12:52 Exam Height,Weight and Vital Signs: Height 5 ft 2 in Weight 119.295 kg Vital Signs Temp Pulse Resp BP Pulse Ox O2 Del Method 04/30/24 11:08 97.9 F 73 16 110/78 96 Room Air Pertinent Lab Results Pertinent Lab Results: Lab Results 04/30/24 Range/Units 10:51 Urine Test NEGATIVE (NEGATIVE) Airway Mallampati Class: III TM Dist: >3cm Neck ROM: Full Loose/Missing/Broken Teeth: No (Denies broken, loose, missing teeth) Heart: RRR Lungs: CTAB Assessment and Plan Assessment Anesthesia Assessment: Anesthesia Plan Discussed and Chart Reviewed Final Anesthetic Review Family History of Problems with Anesthesia: No History of Problems with Anesthesia: No NPO: Yes ASA Class: III Final Preanesthetic Review: No Changes in Pt Med Stat, Meds/Allgs Chart Reviewed, Consent Obtained/Reviewed and Anes Risks/Benef Reviewed Patient Risk: Intermediate Procedure Risk: Low Assessment/Block/Sedation in SS: Assess/Block/Sedation-SS Anesthetic Plan Anesthetic Plan: GA and TIVA Disposition: Standard PACU
[2024-04-30 10:59] VITALS: BMI 48.1
[2024-04-30 11:08] VITALS: BP 110/78; PULSE 73; RESP 16; TEMP 36.6; O2SAT 96
[2024-04-30 11:08] LABS: UPreg QC Valid YES; Urine Pregnancy NEGATIVE (NEGATIVE)
--- NOTE | 2024-04-30 11:21 | MHC.SHP ---
Pre-Procedural Eval Section A - 24 Hr Update-Section A only Date of Service: 04/30/24 The patient is an INPATIENT: No The patient has been examined within 24 hours of the surgical procedure. The History & Physical has been completed within 30 days and I have reviewed it.: Yes Section B - Complete if H&P > 30 days Chief Complaint: Morbid (severe) obesity due to excess calories Details of Present Illness: GERD Relevant Family History (Specify if Yes): No Relevant Social History: None Present Medications: None Medical History: No relevant PMH History of Previous Operations: No relevant previous surgery Allergies: Allergies Allergy/AdvReac Type Severity Reaction Status Date / Time almond [ALMONDS] Allergy Severe THROAT Verified 04/23/24 12:52 SWELLING methylphenidate Allergy Severe UNKNOWN Verified 04/30/24 10:58 [From RITALIN] moore [CHERRIES] Allergy Mild ITCHY Verified 04/23/24 12:52 Review of Systems Sugical H&P ROS: Negative: Constitution, Cardiovascular, Respiratory, Neurological, Psychiatric, Hem-Onc, Allergic/Immunologic, Gastrointestinal, Genitourinary, Musculoskeletal, Integumentary, Endocrine and Eyes/Ears/Nose/Throat Exam Surgical H&P Exam: Normal: HEENT, Normal: Heart, Normal: Lungs, Normal: Extremities, Normal: Abdomen, Normal: Skin and Normal: Neurological Plan Diagnosis/Plan: Unchanged (EGD to assess etiology of GERD. Risks of bleeding and perforation were discussed with the patient and she is in agreement with the plan.) I have reviewed the history and physical and performed a pertinent physical examination on my patient. No changes have occurred unless specified. Time Spent With Patient Time: Total time managing care of this patient today ____ minutes.
[2024-04-30] MEDS: Lactated Ringers 1,000 ML 80 ML IVCONT (11:24)
--- NOTE | 2024-04-30 11:25 | P.BOP_ITS ---
Brief Operative Note Date of Service: 04/30/24 Pre-op diagnosis: GERD Post-op diagnosis: same Procedure: PROCEDURE DATE: 04/30/24 PREOPERATIVE DIAGNOSIS: GERD POSTOPERATIVE DIAGNOSIS: ?Same as above. 1) Very tortuous stomach PROCEDURE: Ioezwwds-dxvimi-rihprwabgica with biopsies Surgeon: ?Mukesh Choudhary M.D.. Ph.D. Dermatology Physician Assistant: None ? Anesthesia: IV sedation Estimated blood loss: ?Minimal FINDINGS AND PROCEDURE: ? OPERATIVE INDICATIONS: ?The patient is a 28 year old female known to me who is interested in bariatric surgery. The patient has GERD. Based on this information I recommended an upper endoscopy to evaluate the patient's symptoms. Risks and complications of the surgery were discussed with the patient in advance particularly the possibility of perforation or bleeding that may require surg ical intervention. The patient understood the risks and was in agreement with the plan. ? PROCEDURE: After informed consent was obtained by the patient, the patient was ?transferred to the Operating Room and was placed in the supine position.? After successful induction of IV sedation, a mouth block was inserted and the patient was placed in the left lateral decubitus position. An upper endoscopy was performed next, the oropharynx and esophagus appeared within the normal limits. There was no hiatal hernia. The z-line was smooth. Two biopsies were obtained from the distal esophagus 2-3 cm proximal to the GE junction and two additional biopsies from the GE junction. The stomach was entered and it appeared to be of normal size. The stomach was extremely tortuous and the scope was naturally retroflexing viewing the GE junction which was normal. Access to the duodenum was made but it was extremely difficult. There was no gastritis. There was no stricture or ulcer. A biopsy was obtained f rom the gastric fundus and the antrum. No significant bleeding was noted from any of the biopsy sites. The scope was then advanced into the duodenum which appeared to be normal as well. At that point the duodenum ?and the stomach were decompressed and the scope was withdrawn from the patient's mouth. The patient extubated and was transferred in stable condition to the Recovery Room for further care. I was present and performed all steps of the procedure. There were no residents to assist with this case. Mukesh Choudhary M.D., Ph.D. Surgeon: Viet Choudhary MD Anesthesia: MAC Was an Dermatology Physician Assistant used for this Procedure?: No Estimated blood loss (mL): 0 IV fluids (mL): 400 Urine output (mL): 0 (No Puga to record output) Pathology: other (1) antrum x1, 2) fundus x1, 3) GE junction x2, 4) distal esophagus x2) Condition: stable Disposition: PACU
[2024-04-30 12:12] VITALS: BP 119/73; PULSE 80; RESP 24; TEMP 36.2; O2SAT 97
[2024-04-30] MEDS: ondansetron HCL 4 MG/2 ML VIAL IVPUSH (12:21)
[2024-04-30 12:27] VITALS: BP 117/68; PULSE 72; RESP 18; TEMP 36.1; O2SAT 98
[2024-04-30] MEDS: Acetaminophen 325 MG TABLET 650 MG PO (12:31)
== END 2024-04-30 13:04 | disposition home or self-care (01) ==
PROVIDERS: Nurse Practitioner; PCP Internal Medicine; Visit Provider Surgery
PROC: 0DJ08ZZ Inspection of Upper Intestinal Tract, Via Natural or Artificial Opening Endoscopic (ICD-10-PCS; CPT 43235; principal; 2024-04-30 11:10)
DX: K21.9 Gastro-esophageal reflux disease without esophagitis (principal); E66.01 Morbid (severe) obesity due to excess calories; Z68.42 Body mass index [BMI] 45.0-49.9, adult; K29.50 Unspecified chronic gastritis without bleeding; B96.81 Helicobacter pylori [H. pylori] as the cause of diseases classified elsewhere; F33.1 Major depressive disorder, recurrent, moderate; J45.909 Unspecified asthma, uncomplicated; Z88.8 Allergy status to other drugs, medicaments and biological substances
CPT/HCPCS: 43239; 81025; 88305; 88313; 88342; J1596; J2250; J2405; J2704; J3010

== ENCOUNTER → 2024-04-30 10:41 | Outpatient (BNV) | payer MEDICAID, SELFPAY | PROVIDERS: PCP Internal Medicine; Visit Provider Surgery | DX: K21.9 Gastro-esophageal reflux disease without esophagitis (principal); K56.2 Volvulus | CPT/HCPCS: 43239 ==

== ENCOUNTER 2024-05-01 09:31 | Outpatient (REF) | payer MEDICAID, SELFPAY ==
[2024-05-01 09:51] LABS: MANUAL DIFF FLAG NO
[2024-05-01 10:09] LABS: Basophils Percent Auto 0.4 % (0-2); Eosinophils Percent Auto 0.6 % (0-4); Hematocrit 43.9 % (37.0-47.0); Hemoglobin 14.6 g/dl (12.0-16.0); Imm Gran Abs Auto 0.03 X10*3/uL (0.00-0.03); Imm Gran Pct Auto 0.4 % (0.0-0.4); Lymphocytes Absolute Auto 2.1 X10*3/uL (1.2-4.9); Lymphocytes Percent Auto 29.5 % (20-40); Mean Corpuscular HGB Conc 33.3 g/dl (31.0-35.0); Mean Corpuscular Hemoglobin 29.7 pg (27.0-33.0); Mean Corpuscular Volume 89.2 fL (80.0-98.0); Mean Platelet Volume 11.4 fL (9.4-12.3); Monocytes Absolute Auto 0.5 X10*3/uL (0.1-1.2); Monocytes Percent Auto 6.3 % (2-11); Neutrophils Absolute Auto 4.5 x10*3/uL (2.0-8.3); Neutrophils Percent Auto 62.8 % (45-73); Platelet Count 234 X10*3/uL (160-400); Red Blood Count 4.92 X10*6/uL (4.20-5.50); Red Cell Distribution Width 12.9 % (11.0-16.0); White Blood Count 7.2 X10*3/uL (4.8-10.8)
[2024-05-01 10:23] LABS: Estimated Average Glucose 111 mg/dL; Hemoglobin A1c % 5.5 % (<6.0)
[2024-05-01 10:34] LABS: Alanine Aminotransferase 44 U/L (0-31); Albumin Level 3.9 g/dL (3.5-5.0); Alkaline Phosphatase 69 U/L (39-117); Anion Gap 9 (12-20); Aspartate Amino Transferase 25 U/L (5-31); Bilirubin Total 0.8 mg/dL (0.0-1.0); Blood Urea Nitrogen 17 mg/dL (9-16); C Reactive Protein 0.59 mg/dL (< or = 0.50); Carbon Dioxide 26 mmol/L (22-29); Chloride 108 mmol/L (96-108); Cholesterol 162 mg/dL (<200); Estimated Glomerular Filt Rate > 60; Glucose Random 100 mg/dL (60-115); HDL Cholesterol 37 mg/dL (>40); Iron 58 mcg/dL (30-160); LDL Cholesterol Calculated 103 mg/dL (<100); Percent Iron Saturation 19 % (15-50); Potassium 4.1 mmol/L (3.3-5.1); Sodium 139 mmol/L (135-145); Total Iron Binding Capacity 312 mcg/dL (228-428); Triglycerides 114 mg/dL (<150); Unsaturated Iron Binding 254 ug/dL
[2024-05-01 11:26] LABS: Ferritin 21 ng/mL (10-122); Insulin 20 uU/mL (2-29); TSH reflex Free T4 2.14 uIU/mL (0.32-4.0); Vitamin D 25-OH Total 22.5 ng/mL (>30)
[2024-05-01 11:34] LABS: Folate 6.7 ng/mL (> or = 4.0); Vitamin B12 226 pg/mL (200-900)
--- NOTE | 2024-05-01 14:21 | ECG_ITS ---
Test Reason : OBESITY Blood Pressure : / mmHG Vent. Rate : 069 BPM Atrial Rate : 069 BPM P-R Int : 154 ms QRS Dur : 086 ms QT Int : 384 ms P-R-T Axes : -22 -15 010 degrees QTc Int : 411 ms Normal sinus rhythm Normal ECG When compared to the previous EKG of No significant changes seen Referred By: Viet Choudhary Electronically Signed By:ELISE CIFUENTES MD
[2024-05-03 13:53] LABS: Cardiolipin IgG Ab <2.0 GPL-U/mL; Cardiolipin IgM Ab <2.0 MPL-U/mL
[2024-05-04 21:34] LABS: Anti-Thrombin III Activity 109 % normal (80-135); Protein C Activity 91 % normal (70-180); Protein S Activity rflx Tot&Fr 102 % normal (60-140)
[2024-05-05 02:34] LABS: Zinc 74 mcg/dL (60-130)
[2024-05-05 20:33] LABS: Factor VIII Activity 91 % normal (50-180)
[2024-05-06 18:39] LABS: Vitamin A 46 mcg/dL (38-98)
[2024-05-09 16:47] LABS: Vitamin B1 11 nmol/L (8-30)
[2024-05-09 20:53] LABS: Factor V Leiden NEGATIVE
== END 2024-05-01 09:32 | disposition home or self-care (01) ==
LOC: HO.XRAY 09:31
PROVIDERS: PCP Internal Medicine; Visit Provider Surgery
DX: E66.01 Morbid (severe) obesity due to excess calories (principal); I26.99 Other pulmonary embolism without acute cor pulmonale
CPT/HCPCS: 36415; 80053; 80061; 81241; 82306; 82607; 82728; 82746; 83036; 83525; 83540; 84425; 84443; 84590; 84630; 85025; 85240; 85300; 85302; 85303; 85306; 86140; 86147; 93005

== ENCOUNTER → 2024-05-01 14:21 | Outpatient (BNV) | payer MEDICAID, SELFPAY | PROVIDERS: PCP Internal Medicine; Visit Provider Internal Medicine Cardiovascular Disease | DX: E66.01 Morbid (severe) obesity due to excess calories (principal) | CPT/HCPCS: 93010 ==

== ENCOUNTER 2024-05-12 09:29 | Outpatient (REF) | payer MEDICAID, SELFPAY ==
--- NOTE | ~2024-05-12 | US_ITS ---
EXAMINATION: US COMPLETE ABDOMEN WITH LIVER ELASTOGRAPHY CLINICAL INFORMATION: Morbid obesity. COMPARISON: CT of the abdomen and pelvis 09/25/2022. TECHNIQUE: Real-time imaging of the abdominal viscera. Noninvasive ultrasound liver fibrosis assessment is performed using Mireille ElastPQ point quantification shear wave elastography (2D-SWE) with a C5-2 MHz transducer. Multiple elastography samples are obtained. FINDINGS: PANCREAS: The visualized pancreatic head and body are normal in appearance. The remainder of the pancreas is obscured from visualization by the overlying bowel gas. ABDOMINAL AORTA: The proximal, middle, and distal aortic segments are normal in caliber. INFERIOR VENA CAVA: Visualized portions are normal. LIVER: Normal. The liver is enlarged measuring over 17 cm, with increased echogenicity suggesting steatosis. No focal lesion or intrahepatic biliary duct dilatation. The right lobe measures 17.8 cm in length. The left lobe measures 10.0 cm in length. Portal flow is towards the liver (hepatopetal). Shear wave liver elastography median stiffness is 1.79 m/s (reference: normal median stiffness is 1.3 m/s or less). IQR/median stiffness to assess sampling precision is 0.05 (reference: good quality data set is IQR/median stiffness of 0.15 or less). GALLBLADDER: Normal. The gallbladder is physiologically distended without evidence of stones, sludge, polyps, wall thickening or pericholecystic fluid. COMMON BILE DUCT: Normal in caliber measuring 0.2 cm in diameter. RIGHT KIDNEY: Normal. No hydronephrosis. No renal calculi or focal parenchymal lesions. The kidney measures 11.0 cm in maximum dimension. LEFT KIDNEY: Normal. No hydronephrosis. No renal calculi or focal parenchymal lesions. The kidney measures 10.8 cm in maximum dimension. SPLEEN: Normal. The spleen measures 9.3 cm in maximum dimension. FREE FLUID: None. US/US abdomen comp w elastography IMPRESSION: 1. Enlarged echogenic liver, consistent with hepatic steatosis. 2. Liver elastography: Measurements are suggestive of compensated advanced chronic liver disease but need further test for confirmation. REFERENCE: Society of Radiologists in Ultrasound Liver Stiffness Thresholds (2020): LIVER STIFFNESS THRESHOLDS: *Liver Stiffness equal or less than 1.3 m/s: High probability of being normal. *Liver Stiffness less than 1.7 m/s: In the absence of other known clinical signs, rules out compensated advanced chronic liver disease. *Liver Stiffness 1.7-2.1 m/s: Suggestive of compensated advanced chronic liver disease but need further test for confirmation. *Liver Stiffness over 2.1 m/s: Rules in compensated advanced chronic liver disease. *Liver Stiffness over 2.4 m/s: Suggestive of clinically significant portal hypertension. QUALITY OF DATA SET: *IQR/Median value equal or less than 0.15 implies a quality data set. *IQR/Median value over 0.15 implies a poor quality data set. SIGNIFICANT CHANGE FROM PRIOR EXAM: Significant change if liver stiffness measurement is 10% or greater from prior exam. OTHER CONSIDERATIONS: The stage of liver fibrosis may be overestimated in the setting of acute hepatitis, liver inflammation, elevated liver function tests, hepatic vascular congestion, obstructive cholestasis, non-fasting state, and infiltrative diseases such as amyloidosis and lymphoma. In some patients with NAFLD, the liver stiffness thresholds for compensated advanced chronic liver disease may be lower. In causes other than viral hepatitis and NAFLD, liver stiffness thresholds are not well established.
--- NOTE | ~2024-05-12 | XR_ITS ---
EXAMINATION: XR CHEST CLINICAL INFORMATION: Morbid severe due to excess calories. COMPARISON: 03/18/2021 x-ray, 11/24/2020 CT angio chest. TECHNIQUE: 2 views of the chest were obtained. FINDINGS: There is no gross pneumothorax. Heart size is normal. Lung volumes are low. No pleural effusion. No focal consolidation. XR/XR chest 2V IMPRESSION: Low lung volumes. No focal consolidation to suggest pneumonia.
== END 2024-05-12 09:30 | disposition home or self-care (01) ==
LOC: HO.US 09:29
PROVIDERS: PCP Internal Medicine; Visit Provider Surgery
DX: E66.01 Morbid (severe) obesity due to excess calories (principal)
CPT/HCPCS: 71046; 76700; 76981

== ENCOUNTER 2024-05-23 14:53 | Outpatient (AMB) | payer MEDICAID, SELFPAY ==
--- NOTE | 2024-05-23 14:27 | MHC.OFFVISWM ---
VS Expanded 05/23/24 14:29 Height 5 ft 2 in Weight 246 lb 6 oz BMI 45.1 Intake Visit Reasons: (TV) F/U SWL Allergies almond [ALMONDS] Allergy (Severe, Verified 04/23/24 12:52) THROAT SWELLING methylphenidate [From RITALIN] Allergy (Severe, Verified 04/30/24 10:58) UNKNOWN moore [CHERRIES] Allergy (Mild, Verified 04/23/24 12:52) ITCHY HPI Comments Details: Patient is a pleasant 28-year-old female who returns to the office today in follow-up. She was initially seen on 03/21/2024 with a weight of 269.2 lb and a BMI of 49.2. Weight today is 246.6 lb with a BMI of 45.1. She has lost 22.6 lb or 8.3% total body weight loss. She states that she is having difficulty with having her shake at work. 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 We have provided her a note stating that she is required to have a specialized meal plan requiring protein shakes and protein bars at her desk. Labs were ordered but not yet obtained. She states that she has had increased stress at work. She does not have a BH therapist. She is looking for a new job Meal plan: Atkins RTD shake, 7-9 ZP bar 10-12 another shake 2-4 meal at 6, 9 forks protein, 9 forks salad/veg Drinking 64 oz water Exercise plan: walking outside 3 days per week. gym 2 days per week, treadmill 30 min, speed 2.4-5, incline 1. PFSH Medical History Febrile seizures Sleep apnea Morbid obesity Asthma Endometriosis Pulmonary embolism Surgical History History of placement of ear tubes Family History Father No problems noted. Mother No problems noted. Maternal Grandmother Breast cancer Social History Alcohol intake: never Patient Tobacco Use Status: Never used Tobacco Substance Use Type: Marijuana Female Reproductive History Menstrual Age of Menarche: 10 Telehealth Telehealth Telehealth Platform: Telephone Location of provider rendering services: practice address Location of patient: address on file Patient Identification confirmed using: Name, : Yes Telehealth method: voice only Patient verbally consented to treatment: Yes Patient verbally consented to billing insurance company: Yes Patient informed of any privacy concerns related to visit: Yes Minutes spent on Phone/Video with Pt.: 20 Assessment & Plan Assessment & Plan (1) Obesity: Code(s): E66.9 - Obesity, unspecified Category: Medical Plan: Encouraged to continue to follow the meal plan and adjust given her weight loss. Encouraged to seek behavioral health appointment given increased stress. She does state that she is looking for a new job. Additionally, encouraged to go to the gym both for exercise for weight loss as well as stress management. She states that she will do so. Return to the office in 1 month.
[2024-05-23 14:29] VITALS: BMI 45.1
== END 2024-05-23 16:12 | disposition home or self-care (01) ==
LOC: HO.HBS 14:53
PROVIDERS: PCP Internal Medicine; Visit Provider Physician Assistant Surgical
DX: E66.9 Obesity, unspecified (principal)
CPT/HCPCS: 99213

== ENCOUNTER 2024-06-02 10:32 | Outpatient (REF) | payer MEDICAID, SELFPAY ==
[2024-06-02 15:35] LABS: H Pylori Breath Test Negative (Negative)
== END 2024-06-02 10:33 | disposition home or self-care (01) ==
LOC: HO.LNP 10:32
PROVIDERS: PCP Internal Medicine; Visit Provider Surgery
DX: E66.01 Morbid (severe) obesity due to excess calories (principal)
CPT/HCPCS: 83013; 99211

== ENCOUNTER 2024-06-20 11:30 | Outpatient (AMB) | payer MEDICAID, SELFPAY ==
--- NOTE | 2024-06-20 11:33 | A.OFFVIS_ITS ---
Intake Visit Reasons: (TV) F/U SWL Allergies almond [ALMONDS] Allergy (Severe, Verified 04/23/24 12:52) THROAT SWELLING methylphenidate [From RITALIN] Allergy (Severe, Verified 04/30/24 10:58) UNKNOWN moore [CHERRIES] Allergy (Mild, Verified 04/23/24 12:52) ITCHY HPI Comments Details: Patient is a pleasant 28-year-old female who returns to the office today in follow-up. She was initially seen on 03/21/2024 with a weight of 269.2 lb and a BMI of 49.2. Weight at her last visit on May 23 was 246.6 lb with a BMI of 45.1. She states that she has not weighed herself since her last visit on May 23. She additionally states that she no longer has the finances to continue going to the gym. She does report that she has been following the meal plan and walking outside 4 days per week as listed below however she reports being significantly stressed with a new job, moving and attempting to lose weight. She has been stress eating. She is awaiting referral to Behavioral Health. We discussed the importance of weighing herself weekly and communicating with us. She states that she has had increased stress at work. She does not have a BH therapist. She is overly stressed and she is eating due to that. Meal plan: Atkins RTD shake, 7-9 ZP bar 10-12 another shake 2-4 meal at 6, 9 forks protein, 9 forks salad/veg Drinking 64 oz water Exercise plan: walking outside 4 days per week. 250 calories [facility] Medical History Febrile seizures Sleep apnea Morbid obesity Asthma Endometriosis Pulmonary embolism Surgical History History of placement of ear tubes Family History Father No problems noted. Mother No problems noted. Maternal Grandmother Breast cancer Social History Alcohol intake: never Patient Tobacco Use Status: Never used Tobacco Substance Use Type: Marijuana Female Reproductive History Menstrual Age of Menarche: 10 Telehealth Telehealth Telehealth Platform: Telephone Location of provider rendering services: other Location of patient: address on file Patient Identification confirmed using: Name, : Yes Telehealth method: voice only Patient verbally consented to treatment: Yes Patient verbally consented to billing insurance company: Yes Patient informed of any privacy concerns related to visit: Yes Minutes spent on Phone/Video with Pt.: 10 Assessment & Plan Assessment & Plan (1) Morbid obesity: Code(s): E66.01 - Morbid (severe) obesity due to excess calories Category: Medical Plan: Discussed the importance of weighing herself weekly and communicating that to us. She has not weighed herself since May 23. She states she is continuing to follow the meal plan through the [employer], she is walking 4 days per week outside. She can no longer afford the gym. Encouraged to increase her walking outside to everyday, tracking her calories, increasing to 300-350 per day. We will have her follow-up with Dr. Choudhary in 2-3 weeks. Additionally, she states that she has been under significant stress at work and she is trying to move and she reports stress eating. She is awaiting referral to Behavioral Health.
== END 2024-06-20 14:19 | disposition home or self-care (01) ==
LOC: HO.HBS 13:15
PROVIDERS: PCP Internal Medicine; Visit Provider Physician Assistant Surgical
DX: E66.01 Morbid (severe) obesity due to excess calories (principal)
CPT/HCPCS: 99213

== ENCOUNTER → 2024-06-20 11:30 | Outpatient (BNVA) | payer MEDICAID, SELFPAY | PROVIDERS: PCP Internal Medicine; Visit Provider Physician Assistant Surgical | DX: E66.01 Morbid (severe) obesity due to excess calories (principal) ==

== ENCOUNTER 2024-10-20 13:35 | Emergency (ER) | payer SELFPAY ==
--- NOTE | ~2024-10-20 | US_ITS ---
EXAMINATION: ULTRASOUND PELVIC, COMPLETE CLINICAL INFORMATION: Pelvic pain COMPARISON: Pelvic ultrasound January 24, 2024 TECHNIQUE: Transvaginal: Used to better visualize pelvic structures Transabdominal: Not adequate for visualization. Spectral Doppler and color Doppler exam was utilized. LMP: One week ago FINDINGS: UTERUS: Unremarkable. Endometrial thickness 1.5 cm. No fluid in the endometrial cavity. Uterus measures 5.9 x 2.9 x 3.4 cm. Uterus is anteverted and anteflexed. ADNEXA: Ovarian vascularity:Doppler demonstrates both arterial and venous vascular flow in the right and left ovary. No evidence of ovarian torsion. Right Ovary: Unremarkable. 3.1 x 2.3 x 1.8 cm. Volume 6.7 mL. Left Ovary: Unremarkable. 3.3 x 2.4 x 2.4 cm. Volume 10 mL. Cul-de-sac: No Fluid US/US pelvic and transvaginal IMPRESSION: Normal ultrasound of pelvis. Electronically signed by: George Reed MD 10/20/2024 07:33 PM EST
--- NOTE | ~2024-10-20 | US_ITS ---
EXAMINATION: ULTRASOUND PELVIC, COMPLETE CLINICAL INFORMATION: Pelvic pain COMPARISON: Pelvic ultrasound January 24, 2024 TECHNIQUE: Transvaginal: Used to better visualize pelvic structures Transabdominal: Not adequate for visualization. Spectral Doppler and color Doppler exam was utilized. LMP: One week ago FINDINGS: UTERUS: Unremarkable. Endometrial thickness 1.5 cm. No fluid in the endometrial cavity. Uterus measures 5.9 x 2.9 x 3.4 cm. Uterus is anteverted and anteflexed. ADNEXA: Ovarian vascularity:Doppler demonstrates both arterial and venous vascular flow in the right and left ovary. No evidence of ovarian torsion. Right Ovary: Unremarkable. 3.1 x 2.3 x 1.8 cm. Volume 6.7 mL. Left Ovary: Unremarkable. 3.3 x 2.4 x 2.4 cm. Volume 10 mL. Cul-de-sac: No Fluid US/US pelvic ovarian doppler IMPRESSION: Normal ultrasound of pelvis. Electronically signed by: George Reed MD 10/20/2024 07:33 PM EST
[2024-10-20 13:53] VITALS: BP 150/75; PULSE 74; RESP 16; TEMP 36.4; O2SAT 98; BMI 47.2
--- NOTE | 2024-10-20 13:58 | ED_ITS ---
HPI - Female Genitourinary General Chief complaint: Vaginal Bleeding Stated complaint: vaginal bleeding Time Seen by Provider: 10/20/24 16:19 Source: patient Limitations: no limitations History of Present Illness ED Provider: Darci ARMAS HPI Narrative: 29-year-old female with a history of polycystic ovarian syndrome, endometrosis, Presents to ED for vaginal bleeding. Patient states while having sex he started having profuse vaginal bleeding and pain and also had a white substance, onto her boyfriend's penis. Patient denies having any tampon or IUD or sex toy present. Patient states it was at the end of her menstruation which was very light so she decided to have sex. Related Data Previous Rx's ?Medication ?Instructions ?Recorded amoxicillin 500 mg capsule 500 mg PO Q8H #42 caps 05/02/24 clarithromycin 500 mg tablet 500 mg PO Q12H #28 tabs 05/02/24 omeprazole 40 mg capsule,delayed 40 mg PO DAILY #14 caps 05/02/24 release cholecalciferol (vitamin D3) 125 125 mcg PO DAILY #90 caps 07/29/24 mcg (5,000 unit) capsule Allergies Allergy/AdvReac Type Severity Reaction Status Date / Time almond [ALMONDS] Allergy Severe THROAT Verified 10/20/24 13:56 SWELLING methylphenidate Allergy Severe UNKNOWN Verified 10/20/24 13:56 [From RITALIN] moore [CHERRIES] Allergy Mild ITCHY Verified 10/20/24 13:56 Review of Systems 2 Review of Systems: vaginal bleeding Yes all other systems are reviewed and are negative PMFSH Past Medical History Medical History Febrile seizures Sleep apnea Morbid obesity Asthma Endometriosis Pulmonary embolism Surgical History History of placement of ear tubes Family History Family History Father No problems noted. Mother No problems noted. Maternal Grandmother Breast cancer Social History Social History Alcohol intake: never Patient Tobacco Use Status: Never used Tobacco Substance Use Type: Marijuana Advance Directives: No Advance Directives Information Provided: No Physical Exam 2 Vital Signs: Vital Signs: Last Vital Signs Temp 98.0 F 10/20/24 15:03 Pulse 69 10/20/24 15:03 Resp 20 10/20/24 15:03 BP 133/88 10/20/24 15:03 Pulse Ox 98 10/20/24 15:03 O2 Del Method Room Air 10/20/24 15:03 BMI result Body Mass Index 47.2 Const: General: cooperative, healthy appearing, comfortable, no acute distress, well developed, alert, awake and Physically active O rientation/consciousness: patient oriented x3 HEENT: Head: Yes normal to inspection, Yes No palpable skull fracture present, Yes normocephalic and Yes atraumatic Eyes: General: appearance normal, both eyes and all related structures Neck: Neck: Yes normal visual inspection, Yes full ROM, Yes no lymphadenopathy, Yes no meningeal signs, Yes trachea midline, Yes supple, No anterior neck swelling and No tender Chest: Chest palpation & inspection: normal inspection of the chest and normal palpation of entire chest wall Resp: Effort & Inspection: normal respiratory effort and able to speak in complete sentences Auscultation: clear to auscultation bilaterally Cardio: Jugular venous distension: no JVD Heart sounds: S1 normal heart sound present and S2 normal heart sound present GI: Inspection: Yes normal to inspection Palpation (GI): Soft to palpation, not firm, nontender, no guarding and not rigid : Other: Positive for blood in vaginal vault from cervix. Negative for any vaginal labia, vaginal canal, or cervix laceration. Negative for any hemorrhagic bleeding. General: Yes no CVA tenderness External Female Exam: normal external appearance and No Abnormal introitus Speculum Exam - Vagina: normal appearance of the vagina, normal palpation, normal vaginal discharge, not erythematous, no foreign bodies, no lacerations, no lesions, vaginal bleeding, No tissue present in vagina, no masses, no swelling, nontender and introitus not gaping Bimanual exam- vagina & uterus: normal bimanual exam and normal palpation OB/external & speculum: vaginal bleeding; no foreign bodies and no tissue noted in vagina Back/Spine/Pelvis: Back: no CVA tenderness and No back tenderness Skin: General skin exam: no rashes or lesions noted, elasticity normal and turgor normal Neuro: General: patient oriented x3, gait normal, tone normal, moves all extremities, Normal light touch and pain sensation, no meningeal signs, no focal motor deficits, CN's II-XI intact bilaterally and normal sensation to monofilament Extrem: General: Yes normal to inspection, Yes full ROM and Yes capillary refill normal Psych: Appearance: grossly normal, well kempt and not disheveled Course Course Course Narrative: This is an RME: Additional HPI, ROS, PE not included below will be deferred to primary provider. RME assessment and note performed by: Dee Dee Sharpe PA-C This is a 70-[id number]-female, with hx of endometriosis, who presents to the ER with complaints of increased vag bleeding and white substance in D/C. Reports this is the end of her period, report hx of irregular periods. Plan: Labs, UA, further er eval needed Medications Administered Discontinued Medications Generic Name Dose Route Start Last Admin Trade Name Freq PRN Reason Stop Dose Admin Ketorolac Tromethamine 30 mg 10/20/24 16:56 10/20/24 17:03 Ketorolac Tromethamine 30 Mg/Ml Vial IM 10/20/24 16:57 30 mg ONCE ONE Administration Medical Decision Making Medical Decision Making [facility] Narrative: [age] year female presents to ED for vaginal bleeding that occurred since last night while having sex with a boyfriend. Patient was at the end of her period so she decided to have since with the warfarin due to. Being light and then while having sexual pain and profuse bleeding. Pelvic exam negative for any obvious vaginal labial or insert vaginal wall laceration or cervical laceration. Patient will be sent for ultrasound to make sure there is no ovarian rupture or torsion. Basic labs are normal. 7:44pm: Ultrasound negative for any torsion, ovarian rupture, fibroids, or any other life-threatening etiology. Patient states she will follow-up with her OBGYN tomorrow. Patient given copy of ultrasound and informed to return to ED immediately. Chlamydia gonorrhea BV trich negative. Patient explained worrisome signs and informed to return to the ED immediately. Not suspecting ruptured fibroid, ruptured ovarian cyst, cervical laceration, tubo-ovarian abscess, hemorrhagic bleeding, or any other concerning symptoms. Differential Diagnosis Differential Diagnoses: The differential diagnosis associated with the presentation includes (Vaginal bleeding, ) Admission/Observation Consideration of admission/observation: Escalation of care including admission/observation considered Lab Data [facility] Lab Attestation statement: I reviewed the patient's lab results. 10/20/24 14:24 10/20/24 14:24 Labs: Lab Results 10/20/24 10/20/24 Range/Units 14:24 17:00 WBC 6.8 (4.8-10.8) X10*3/uL RBC 4.84 (4.20-5.50) X10*6/uL Hgb 14.0 (12.0-16.0) g/dl Hct 42.3 (37.0-47.0) % MCV 87.4 (80.0-98.0) fL MCH 28.9 (27.0-33.0) pg MCHC 33.1 (31.0-35.0) g/dl RDW 13.2 (11.0-16.0) % Plt Count 254 (160-400) X10*3/uL MPV 10.8 (9.4-12.3) fL Immature Gran % (Auto) 0.1 (0.0-0.4) % Neut % (Auto) 53.3 (45-73) % Lymph % (Auto) 38.8 (20-40) % Hayes % (Auto) 5.8 (2-11) % Eos % (Auto) 1.6 (0-4) % Baso % (Auto) 0.4 (0-2) % Lymph # (Auto) 2.6 (1.2-4.9) X10*3/uL Hayes # (Auto) 0.4 (0.1-1.2) X10*3/uL Eos # (Auto) 0.1 (0.0-0.4) X10*3/uL Baso # (Auto) 0.0 (0.0-0.2) X10*3/uL Abs Immat Gran (auto) 0.01 (0.00-0.03) X10*3/uL Absolute Neuts (auto) 3.6 (2.0-8.3) x10*3/uL Absolute Nucleated RBC 0.000 (0.0-0.012) X10*3/uL Nucleated RBC % (auto) 0.0 (0.0-0.2) /100WBC Sodium 144 (135-145) mmol/L Potassium 4.0 (3.3-5.1) mmol/L Chloride 107 (96-108) mmol/L Carbon Dioxide 31 H (22-29) mmol/L Anion Gap 10 L (12-20) BUN 15 (9-16) mg/dL Creatinine 0.86 (0.5-1.4) mg/dL Estim Creat Clear Calc 117.1 Estimated GFR > 60 Random Glucose 136 H (60-115) mg/dL Calcium 8.6 (8.4-10.2) mg/dL Total Bilirubin 0.9 (0.0-1.0) mg/dL Direct Bilirubin 0.2 (0.0-0.5) mg/dL AST 28 (5-31) U/L ALT 49 H (0-31) U/L Alkaline Phosphatase 66 (39-117) U/L Total Protein 6.8 (6.5-8.0) g/dL Albumin 3.9 (3.5-5.0) g/dL Beta HCG, Quant < 2 mIU/mL Urine Color Dark Yellow Urine Appearance Hazy Urine pH 5.5 (5.0-9.0) Ur Specific [place] >= 1.030 H (1.005-1.025) Urine Protein 30 (1+) H (Neg-Trace) mg/dL Urine Glucose (UA) Negative (Negative) mg/dL Urine Ketones Trace (Negative) mg/dL Urine Blood Large (3+) H (Negative) Urine Nitrite Negative (Negative) Ur Leukocyte Esterase Trace H (Negative) Urine RBC >20 H (0-2) /HPF Urine WBC 0-5 (0-5) /HPF Ur Squamous Epith Cells 3-5 (0-2) /HPF Urine Bacteria None Seen (None Seen) Hyaline Casts 0-2 (0-2) /LPF Chlam trachomat DNA PCR NOT DETECTED (Not Detect.) N.gonorrhoeae DNA (PCR) NOT DETECTED (Not Detect.) T. vaginalis (PCR) NOT DETECTED (Not Detect) Bact vaginosis (PCR) NEGATIVE (Negative) C. krusei/glabrata (PCR) NOT DETECTED (Not Detect) Cleo group (PCR) NOT DETECTED (Not Detect) Independent Interpretation I performed an independent interpretation of an: Ultrasound Radiology Impression Discussion of test interpretation with radiology: I have reviewed the radiologist's reading. Discharge Plan Discharge Clinical Impression: Abnormal uterine bleeding (AUB), Vaginal bleeding Patient Disposition: Home, Self-Care Instructions: Dysfunctional Uterine Bleeding (ED) Additional Instructions: Recommend follow-up with your primary care provider. Return to the ED immediately for any abdominal pain, profuse or worsening vaginal bleeding, nausea, vomiting, flank pain, fever, chills, vaginal discharge, increased urinary frequency, hematuria, or any other concerning symptoms. Recommend follow-up with your OBGYN provider tomorrow. INDINGS: UTERUS: Unremarkable. Endometrial thickness 1.5 cm. No fluid in the endometrial cavity. Uterus measures 5.9 x 2.9 x 3.4 cm. Uterus is anteverted and anteflexed. ADNEXA: Ovarian vascularity:Doppler demonstrates both arterial and venous vascular flow in the right and left ovary. No evidence of ovarian torsion. Right Ovary: Unremarkable. 3.1 x 2.3 x 1.8 cm. Volume 6.7 mL. Left Ovary: Unremarkable. 3.3 x 2.4 x 2.4 cm. Volume 10 mL. Cul-de-sac: No Fluid US/US pelvic and transvaginal IMPRESSION: Normal ultrasound of pelvis. Electronically signed by: George Reed MD 10/20/2024 07:33 PM [facility] Prescriptions: No Action omeprazole 40 mg capsule,delayed release(DR/EC) 40 mg PO DAILY Qty: 14 0RF clarithromycin 500 mg tablet 500 mg PO Q12H Qty: 28 0RF amoxicillin 500 mg capsule 500 mg PO Q8H Qty: 42 0RF cholecalciferol (vitamin D3) 125 mcg (5,000 unit) capsule 125 mcg PO DAILY Qty: 90 0RF Stand Alone Forms: Work/School Release Print Language: Cymraes
[2024-10-20 14:28] LABS: MANUAL DIFF FLAG NO
[2024-10-20 14:29] LABS: Basophils Percent Auto 0.4 % (0-2); Eosinophils Absolute Auto 0.1 X10*3/uL (0.0-0.4); Eosinophils Percent Auto 1.6 % (0-4); Hematocrit 42.3 % (37.0-47.0); Imm Gran Abs Auto 0.01 X10*3/uL (0.00-0.03); Imm Gran Pct Auto 0.1 % (0.0-0.4); Lymphocytes Absolute Auto 2.6 X10*3/uL (1.2-4.9); Lymphocytes Percent Auto 38.8 % (20-40); Mean Corpuscular HGB Conc 33.1 g/dl (31.0-35.0); Mean Corpuscular Hemoglobin 28.9 pg (27.0-33.0); Mean Corpuscular Volume 87.4 fL (80.0-98.0); Mean Platelet Volume 10.8 fL (9.4-12.3); Monocytes Absolute Auto 0.4 X10*3/uL (0.1-1.2); Monocytes Percent Auto 5.8 % (2-11); Neutrophils Absolute Auto 3.6 x10*3/uL (2.0-8.3); Neutrophils Percent Auto 53.3 % (45-73); Platelet Count 254 X10*3/uL (160-400); Red Blood Count 4.84 X10*6/uL (4.20-5.50); Red Cell Distribution Width 13.2 % (11.0-16.0); White Blood Count 6.8 X10*3/uL (4.8-10.8)
[2024-10-20 14:32] LABS: Color Urine Dark Yellow; Glucose Urine UA Negative (Negative); Leukocyte Esterase Urine Trace (Negative); Nitrite Urine Negative (Negative); PH 5.5 (5.0-9.0); Specific Gravity - Urine >= 1.030 (1.005-1.025); UMIC TRIGGER UACC YES; Urine Blood Large (3+) (Negative); Urine Ketones Trace mg/dL (Negative); Urine Protein 30 (1+) mg/dL (Neg-Trace)
[2024-10-20 14:33] LABS: Appearance Urine Hazy; Bacteria Urine None Seen (None Seen); Hyaline Casts Urine 0-2 /LPF (0-2); RBC Urine >20 /HPF (0-2); WBC Urine 0-5 /HPF (0-5)
[2024-10-20 14:49] LABS: Alanine Aminotransferase 49 U/L (0-31); Albumin Level 3.9 g/dL (3.5-5.0); Alkaline Phosphatase 66 U/L (39-117); Anion Gap 10 (12-20); Aspartate Amino Transferase 28 U/L (5-31); Bilirubin Direct 0.2 mg/dL (0.0-0.5); Bilirubin Total 0.9 mg/dL (0.0-1.0); Blood Urea Nitrogen 15 mg/dL (9-16); Calcium 8.6 mg/dL (8.4-10.2); Carbon Dioxide 31 mmol/L (22-29); Chloride 107 mmol/L (96-108); Creatinine Clr Calc Pharmacy 117.1; Estimated Glomerular Filt Rate > 60; Glucose Random 136 mg/dL (60-115); HCG Quantitative < 2 mIU/mL; Sodium 144 mmol/L (135-145); Total Protein 6.8 g/dL (6.5-8.0)
[2024-10-20 15:03] VITALS: BP 133/88; PULSE 69; RESP 20; TEMP 36.7; O2SAT 98
--- NOTE | 2024-10-20 16:58 | PC.NURSE ---
pelvic exam performed by ED provider - swabs obtained/sent to lab by tech. pt verbalizing increase in pain in vaginal region - requesting medication. provider notified/aware.
[2024-10-20] MEDS: Ketorolac Tromethamine 30 MG/ML VIAL IM (17:03)
--- NOTE | 2024-10-20 17:06 | PC.NURSE ---
pt medicated per provider order. effectiveness pending. pt waiting to go to ultrasound at this time. plan of care ongoing.
[2024-10-20 18:23] LABS: Bacterial Vaginosis PCR NEGATIVE (Negative); Candida Group PCR NOT DETECTED (Not Detect); Candida glab krusei PCR NOT DETECTED (Not Detect); Trichomonas vaginalis PCR NOT DETECTED (Not Detect)
[2024-10-20 18:54] LABS: CT PCR NOT DETECTED (Not Detect.); NG PCR NOT DETECTED (Not Detect.)
[2024-10-20 19:53] VITALS: BP 128/85; PULSE 64; RESP 20; TEMP 36.6; O2SAT 98
== END 2024-10-20 19:54 | disposition home or self-care (01) ==
PROVIDERS: Physician Assistant; Physician Assistant Medical; Emergency Provider Internal Medicine; PCP Internal Medicine
DX: N93.9 Abnormal uterine and vaginal bleeding, unspecified (principal); R10.2 Pelvic and perineal pain; E28.2 Polycystic ovarian syndrome; N80.9 Endometriosis, unspecified; F12.90 Cannabis use, unspecified, uncomplicated; Z79.899 Other long term (current) drug therapy
CPT/HCPCS: 0352U; 36415; 76830; 76856; 80048; 80076; 81001; 84702; 85025; 87491; 87591; 93975; 96372; 99284; J1885

== ENCOUNTER 2025-03-31 16:36 | Emergency (ER) | payer MEDICAID, SELFPAY ==
--- NOTE | ~2025-03-31 | US_ITS ---
CLINICAL HISTORY: L suprapubic pain, missed period --- Additional Notes or Special Instructions: LMP 4 15 US pelvis transabdominal and transvaginal Comparison: US/SR - US PELVIC AND TRANSVAGINAL - 10/20/24 17:28 EST Findings: Transabdominal scanning performed for overall anatomy. Transvaginal scanning performed for additional detail. Anteverted uterus is 6.6 cm length. Normal myometrium. Endometrium 16 mm thickness. No discrete mass lesions within the endometrium. There are few tiny cystic areas within the endometrium. Right ovary 3.6 x 2.0 x 2.3 cm cm. There are multiple follicles within the right ovary. Left ovary 3.5 x 2.2 x 2.3 cm. There are multiple follicles within the left ovary. Normal color Doppler of both ovaries. No free fluid. IMPRESSION: 1. No acute abnormalities within the uterus or adnexa. 2. Multiple follicles within both ovaries, normal morphology. 3. Upper normal thickness of endometrium with a few small cystic areas in the endometrium. This document has been electronically signed by: Bruno Gordon MD on 03/31/2025 19:20:10
[2025-03-31 16:38] VITALS: BP 132/90; PULSE 70; RESP 20; TEMP 36.8; O2SAT 100; BMI 48.7
--- NOTE | 2025-03-31 16:38 | ED.FEMALEGU ---
HPI - Female Genitourinary General Chief complaint: Abdominal Pain Stated complaint: ?Ectopic /sent from Related Data Previous Rx's ?Medication ?Instructions ?Recorded amoxicillin 500 mg capsule 500 mg PO Q8H #42 caps 05/02/24 clarithromycin 500 mg tablet 500 mg PO Q12H #28 tabs 05/02/24 omeprazole 40 mg capsule,delayed 40 mg PO DAILY #14 caps 05/02/24 release cholecalciferol (vitamin D3) 125 125 mcg PO DAILY #90 caps 07/29/24 mcg (5,000 unit) capsule Allergies Allergy/AdvReac Type Severity Reaction Status Date / Time almond [ALMONDS] Allergy Severe THROAT Verified 03/31/25 16:41 SWELLING methylphenidate Allergy Severe UNKNOWN Verified 03/31/25 16:41 [From RITALIN] moore [CHERRIES] Allergy Mild ITCHY Verified 03/31/25 16:41 PMFSH Past Medical History Medical History Febrile seizures Sleep apnea Morbid obesity Asthma Endometriosis Pulmonary embolism Surgical History History of placement of ear tubes Family History Family History Father No problems noted. Mother No problems noted. Maternal Grandmother Breast cancer Social History Social History Alcohol intake: never Patient Tobacco Use Status: Never used Tobacco Substance Use Type: Marijuana Physical Exam Vital Signs: Vital Signs: Last Vital Signs Temp 98.2 F 03/31/25 16:38 Pulse 70 03/31/25 16:38 Resp 20 03/31/25 16:38 BP 132/90 H 03/31/25 16:38 Pulse Ox 100 03/31/25 16:38 O2 Del Method Room Air 03/31/25 16:38 BMI result Body Mass Index 48.7 Course Course Course Narrative: This is a Rapid Medical Exam performed in triage by Harriet Boggs PA-C. Full HPI, ROS and PE to be performed by primary ED provider. 29 yo F w/pmhx obesity, AUB, presenting to the ED c/o missed menstruation (LMP 4/15) w/negative test at [facility]. Admits to assoc nausea. Also reports light brown discharge. PE: NAD, nontoxic appearing, +L suprapubic ttp, no rebound or guarding Plan: labs, UA Medical Decision Making Lab Data 03/31/25 16:59 03/31/25 16:59 Labs: Lab Results 03/31/25 Range/Units 16:59 WBC 7.0 (4.8-10.8) X10*3/uL RBC 4.87 (4.20-5.50) X10*6/uL Hgb 14.3 (12.0-16.0) g/dl Hct 42.5 (37.0-47.0) % MCV 87.3 (80.0-98.0) fL MCH 29.4 (27.0-33.0) pg MCHC 33.6 (31.0-35.0) g/dl RDW 13.2 (11.0-16.0) % Plt Count 234 (160-400) X10*3/uL MPV 10.9 (9.4-12.3) fL Immature Gran % (Auto) 0.4 (0.0-0.4) % Neut % (Auto) 51.7 (45-73) % Lymph % (Auto) 39.5 (20-40) % Eddy % (Auto) 6.6 (2-11) % Eos % (Auto) 1.4 (0-4) % Baso % (Auto) 0.4 (0-2) % Lymph # (Auto) 2.8 (1.2-4.9) X10*3/uL Eddy # (Auto) 0.5 (0.1-1.2) X10*3/uL Eos # (Auto) 0.1 (0.0-0.4) X10*3/uL Baso # (Auto) 0.0 (0.0-0.2) X10*3/uL Abs Immat Gran (auto) 0.03 (0.00-0.03) X10*3/uL Absolute Neuts (auto) 3.6 (2.0-8.3) x10*3/uL Absolute Nucleated RBC 0.000 (0.0-0.012) X10*3/uL Nucleated RBC % (auto) 0.0 (0.0-0.2) /100WBC Sodium 142 (135-145) mmol/L Potassium 4.2 (3.3-5.1) mmol/L Chloride 107 (96-108) mmol/L Carbon Dioxide 30 H (22-29) mmol/L Anion Gap 9 L (12-20) BUN 15 (9-16) mg/dL Creatinine 0.76 (0.5-1.4) mg/dL Estim Creat Clear Calc 135.1 Estimated GFR > 60 Random Glucose 88 (60-115) mg/dL Calcium 9.0 (8.4-10.2) mg/dL Magnesium 1.9 (1.6-2.6) mg/dL Total Bilirubin 1.0 (0.0-1.0) mg/dL Direct Bilirubin 0.3 (0.0-0.5) mg/dL AST 28 (5-31) U/L ALT 36 H (0-31) U/L Alkaline Phosphatase 70 (39-117) U/L Total Protein 6.9 (6.5-8.0) g/dL Albumin 4.0 (3.5-5.0) g/dL Lipase 22 (8-78) U/L Beta HCG, Quant < 2 mIU/mL Discharge Plan Discharge Clinical Impression: Abdominal pain Patient Disposition: Left W/O Completing Treatment Prescriptions: No Action omeprazole 40 mg capsule,delayed release(DR/EC) 40 mg PO DAILY Qty: 14 0RF clarithromycin 500 mg tablet 500 mg PO Q12H Qty: 28 0RF amoxicillin 500 mg capsule 500 mg PO Q8H Qty: 42 0RF cholecalciferol (vitamin D3) 125 mcg (5,000 unit) capsule 125 mcg PO DAILY Qty: 90 0RF Discharge Date/Time: 03/31/25 21:34
[2025-03-31 17:03] LABS: MANUAL DIFF FLAG NO
[2025-03-31 17:14] LABS: Basophils Percent Auto 0.4 % (0-2); Eosinophils Absolute Auto 0.1 X10*3/uL (0.0-0.4); Eosinophils Percent Auto 1.4 % (0-4); Hematocrit 42.5 % (37.0-47.0); Hemoglobin 14.3 g/dl (12.0-16.0); Imm Gran Abs Auto 0.03 X10*3/uL (0.00-0.03); Imm Gran Pct Auto 0.4 % (0.0-0.4); Lymphocytes Absolute Auto 2.8 X10*3/uL (1.2-4.9); Lymphocytes Percent Auto 39.5 % (20-40); Mean Corpuscular HGB Conc 33.6 g/dl (31.0-35.0); Mean Corpuscular Hemoglobin 29.4 pg (27.0-33.0); Mean Corpuscular Volume 87.3 fL (80.0-98.0); Mean Platelet Volume 10.9 fL (9.4-12.3); Monocytes Absolute Auto 0.5 X10*3/uL (0.1-1.2); Monocytes Percent Auto 6.6 % (2-11); Neutrophils Absolute Auto 3.6 x10*3/uL (2.0-8.3); Neutrophils Percent Auto 51.7 % (45-73); Platelet Count 234 X10*3/uL (160-400); Red Blood Count 4.87 X10*6/uL (4.20-5.50); Red Cell Distribution Width 13.2 % (11.0-16.0)
[2025-03-31 17:28] LABS: Alanine Aminotransferase 36 U/L (0-31); Alkaline Phosphatase 70 U/L (39-117); Anion Gap 9 (12-20); Aspartate Amino Transferase 28 U/L (5-31); Bilirubin Direct 0.3 mg/dL (0.0-0.5); Blood Urea Nitrogen 15 mg/dL (9-16); Carbon Dioxide 30 mmol/L (22-29); Chloride 107 mmol/L (96-108); Creatinine Clr Calc Pharmacy 135.1; Estimated Glomerular Filt Rate > 60; Glucose Random 88 mg/dL (60-115); HCG Quantitative < 2 mIU/mL; Lipase 22 U/L (8-78); Magnesium 1.9 mg/dL (1.6-2.6); Potassium 4.2 mmol/L (3.3-5.1); Sodium 142 mmol/L (135-145); Total Protein 6.9 g/dL (6.5-8.0)
== END 2025-03-31 21:34 | disposition left against medical advice (07) ==
LOC: HO.ED 21:22
PROVIDERS: Physician Assistant; Emergency Provider Emergency Medicine; PCP Internal Medicine
DX: N91.0 Primary amenorrhea (principal); R10.2 Pelvic and perineal pain; R11.0 Nausea; Z79.899 Other long term (current) drug therapy
CPT/HCPCS: 36415; 76830; 76856; 80048; 80076; 83690; 83735; 84702; 85025; 99281; 99284

== ENCOUNTER → 2025-03-31 16:41 | Outpatient (BNV) | payer MEDICAID, SELFPAY | PROVIDERS: PCP Internal Medicine; Visit Provider Radiology Diagnostic Radiology | DX: N85.00 Endometrial hyperplasia, unspecified (principal) | CPT/HCPCS: 76830; 76856 ==

== ENCOUNTER 2025-04-06 12:43 | Outpatient (REF) | payer MEDICAID, SELFPAY ==
[2025-04-06 17:08] LABS: CT PCR NOT DETECTED (Not Detect.); NG PCR NOT DETECTED (Not Detect.)
== END 2025-04-06 12:44 | disposition home or self-care (01) ==
LOC: HO.LAB 12:43
PROVIDERS: PCP Internal Medicine; Visit Provider Obstetrics & Gynecology
DX: N93.9 Abnormal uterine and vaginal bleeding, unspecified (principal)
CPT/HCPCS: 84443; 84702; 85027; 87491; 87591; 87626; 88175; 99202

== ENCOUNTER 2025-04-06 12:43 | Outpatient (AMB) | payer MEDICAID, SELFPAY ==
--- NOTE | 2025-04-06 12:53 | MHC.OFFVIS ---
Intake Visit Reasons: vaginal bleeding Intake Note: Per patient, is not bleeding. Called with complaints of left ovary pain. Has not gotten her period yet this month and she does usually get it every 28 days, test in office today negative. Gas Torch Solderer: Gas Torch Solderer Present (Chelle) Accompanied by: Spouse Allergies almond [ALMONDS] Allergy (Severe, Verified 04/06/25 12:54) THROAT SWELLING methylphenidate [From RITALIN] Allergy (Severe, Verified 04/06/25 12:54) UNKNOWN moore [CHERRIES] Allergy (Mild, Verified 04/06/25 12:54) ITCHY HPI Comments Details: Presenting complaining of irregular menstrual cycle over the last few months. 03/29/2025 H&H was 14.3/22.5 HCG less than 2 Pelvic ultrasound showed the following: Anteverted uterus is 6.6 cm length. Normal myometrium. Endometrium 16 mm thickness. No discrete mass lesions within the endometrium. There are few tiny cystic areas within the endometrium. Right ovary 3.6 x 2.0 x 2.3 cm cm. There are multiple follicles within the right ovary. Left ovary 3.5 x 2.2 x 2.3 cm. There are multiple follicles within the left ovary. Normal color Doppler of both ovaries. No free fluid. IMPRESSION: 1. No acute abnormalities within the uterus or adnexa. 2. Multiple follicles within both ovaries, normal morphology. 3. Upper normal thickness of endometrium with a few small cystic areas in the endometrium. [facility] Medical History Febrile seizures Sleep apnea Morbid obesity Asthma Endometriosis Pulmonary embolism Surgical History History of placement of ear tubes Family History Father No problems noted. Mother No problems noted. Maternal Grandmother Breast cancer Social History Alcohol intake: never Patient Tobacco Use Status: Never used Tobacco Substance Use Type: Marijuana Female Reproductive History Menstrual Age of Menarche: 10 Review of Systems Const All systems reviewed & are unremarkable except as noted in HPI and below Card Reports as per HPI Resp Reports as per HPI GI Reports as per HPI and Reports no additional complaints Reports as per HPI Physical Exam Const General: cooperative, healthy appearing and comfortable Chest Chest palpation & inspection: normal inspection of the chest and normal palpation of entire chest wall Breast/axilla inspection: normal inspection of the breasts and normal inspection of the axillae Breast/axilla palpation: normal palpation of the breasts, normal palpation of the axillae and no axillary lymphadenopathy Resp Effort & Inspection: normal respiratory effort Auscultation: clear to auscultation bilaterally Percussion: percussion normal Cardio Palpation: normal PMI Rate: regular rate Rhythm: regular rhythm Heart sounds: no murmurs and no rubs Peripheral pulses: Peripheral pulses 2+ throughout GI Inspection: Yes normal to inspection Palpation (GI): Soft to palpation, nontender, no guarding, not rigid and No hepatosplenomegaly present Percussion: Yes normal to percussion Auscultation: normal bowel sounds Rectal Exam - Female: deferred General: Yes bladder normal to palpation External Female Exam: No lesion Speculum Exam - Vagina: normal appearance of the vagina, normal palpation, normal vaginal discharge and not erythematous Speculum Exam - Cervix: normal appearance of the cervix and normal palpation Bimanual exam- vagina & uterus: normal bimanual exam, normal palpation, uterine size normal, bladder normal to palpation, consistency normal and normal palpation Bimanual Exam- Adnexa, other: normal adnexae, no masses and no tenderness Assessment & Plan Assessment & Plan (1) Abnormal uterine bleeding (AUB): Comment: History of PE on OCP Cystic areas in endometrium Code(s): N93.9 - Abnormal uterine and vaginal bleeding, unspecified Category: Medical Plan: Urine test done in the office was negative Co testing done since the patient will return inserted in 3 months, GC and chlamydia taken CBC, TSH, HCG, ordered. Discussed with the patient the different causes of abnormal bleeding including thyroid disorders, uterine and ovarian pathology,and other potential causes. Discussed with the patient the pelvic ultrasound findings specifically the endometrial stripe abnormality. The negative predictive value, positive predictive value, Sensitivity, specificity of using ultrasound measurement of endometrial stripe to detecting endometrial pathology including hyperplasia , polyp or cancer were discussed with the patient. Recommended to the patient that the next step is an endometrial sampling via hysteroscopy D&C possible polypectomy versus endometrial biopsy to r/o endometrial pathology including hyperplasia or cancer. All the pros and cons risks and benefits of each approach were discussed with the patient, endometrial biopsy being less invasive, office procedure with less sensitivity and inability diagnose a polyp and removal versus hysteroscopy done under anesthesia more invasive more sensitive to endometrial cancer and possibility of diagnosing and endometrial polyp with the possibility of polypectomy. All questions were answered pt verbalized understanding and decided to proceed with endometrial biopsy All questions answered and the patient verbalized understanding. Instructed the patient to schedule an appointment for an endometrial biopsy in 2 weeks. Orders: Orders TSH reflex Free T4 Today N93.9 - Abnormal uterine and vaginal bleeding, unspecified HCG Quantitative Today N93.9 - Abnormal uterine and vaginal bleeding, unspecified Complete Blood Count no Diff Today N93.9 - Abnormal uterine and vaginal bleeding, unspecified Coding Level of Care Code New Pt Level 3 (70608) Diagnoses Abnormal uterine bleeding (AUB) N93.9
--- OUTSIDE RECORDS SUMMARY | 2025-04-06 13:41 | XMS_ITS | Encounter Summary ---
Author Organization [employer] Address [address] [place] [address] Care Team Providers Care Linux Admin Name Role Phone Unavailable Primary Care Provider Unavailabl e Reason for Visit * Reason Onset Date Comments New Patient Appt 05/07/2023 Encounter Details Date Type Department Care Team ([facility] st Contact Info) Description 05/07/2023 Telephone [facility] [address] [place] [address] Kya Bustillo MD [address] [place] [address] New Patient Appt Social History Tobacco Use Types Packs/Day Years Used Date Smoking Tobacco: Never Smokeless Tobacco: Never Comments Unknown Sex and Gender Information Value Date Recorded Sex Assigned at Female 09/04/2022 10:14 AM EDT Legal Sex Female 10:14 AM EDT Gender Identity Female 09/04/2022 10:14 AM EDT Sexual Orientation Straight 09/04/2022 10 :14 AM EDT COVID-19 Exposure Response Date Recorded In the last 10 days, have yo u been in contact with someone who was confirmed or suspected to have Coronavirus/COVID-19? No / Unsure 04/12/2023 1:48 PM EDT documented as of this encounter Miscellaneous Notes * Telephone Encounter - Chiki Monroe - 05/07/2023 9:53 AM EDT PAR Chiki Lo called pt to Offer [facility]ANCIAL HEALTH COUNSELOR appt. Pt demographics and insurance information were verified. Pt reports no medical conditions. Pt is not taking any medication at this time. Pt given FINANCIAL HEALTH COUNSELOR appt with Dr. Kya Iraheta on 05/15/2023 @ 10:15 am. Pt will be sent appt reminder card and medical release form and agrees to complete and to return to medical records prior to FINANCIAL HEALTH COUNSELOR appt. documented in this encounter Plan of Treatment Not on file documented as of this encounter Visit Diagnoses Not on filedocumented in this encounter
== END 2025-04-06 13:20 | disposition home or self-care (01) ==
PROVIDERS: PCP Internal Medicine; Visit Provider Obstetrics & Gynecology
DX: N93.9 Abnormal uterine and vaginal bleeding, unspecified (principal)
CPT/HCPCS: 99203

== ENCOUNTER 2025-04-06 13:15 | Outpatient (REF) | payer MEDICAID, SELFPAY ==
[2025-04-06 14:04] LABS: Hematocrit 42.7 % (37.0-47.0); Hemoglobin 14.1 g/dl (12.0-16.0); Mean Corpuscular Hemoglobin 29.3 pg (27.0-33.0); Mean Corpuscular Volume 88.6 fL (80.0-98.0); Mean Platelet Volume 11.2 fL (9.4-12.3); Platelet Count 249 X10*3/uL (160-400); Red Blood Count 4.82 X10*6/uL (4.20-5.50); Red Cell Distribution Width 13.2 % (11.0-16.0); White Blood Count 7.8 X10*3/uL (4.8-10.8)
[2025-04-06 14:55] LABS: HCG Quantitative < 2 mIU/mL; TSH reflex Free T4 2.36 uIU/mL (0.32-4.0)
[2025-04-13 13:14] LABS: HPV Genotype 16 Negative (Negative); HPV Genotype 18 Negative (Negative); HPV High Risk Negative (Negative)
== END 2025-04-06 13:16 | disposition home or self-care (01) ==
LOC: HO.LNP 13:15
PROVIDERS: Visit Provider Obstetrics & Gynecology
DX: Z13.89 Encounter for screening for other disorder (principal)
CPT/HCPCS: 84443; 84702; 85027; 87626; 88175

== ENCOUNTER 2025-07-28 12:45 | Outpatient (REF) | payer MEDICAID, SELFPAY ==
[2025-08-09 17:17] LABS: Testosterone, Free 8.5 pg/mL (0.1-6.4)
== END 2025-07-28 12:46 | disposition home or self-care (01) ==
LOC: HO.LAB 12:45
PROVIDERS: Visit Provider Obstetrics & Gynecology
DX: N93.9 Abnormal uterine and vaginal bleeding, unspecified (principal); L68.0 Hirsutism
CPT/HCPCS: 36415; 58100; 83498; 84402; 84403; 99212

== ENCOUNTER 2025-07-28 12:45 | Outpatient (AMB) | payer MEDICAID, SELFPAY ==
--- NOTE | 2025-07-28 13:03 | A.OFFVIS_ITS ---
Vital Signs 07/28/25 13:06 Height 5 ft 2 in Intake Visit Reasons: emb Beamster: Beamster Present (letty) Accompanied by: Life Partner Allergies almond (ALMONDS) Allergy (Severe, Verified 07/28/25 13:07) THROAT SWELLING methylphenidate (From RITALIN) Allergy (Severe, Verified 07/28/25 13:07) UNKNOWN moore (CHERRIES) Allergy (Mild, Verified 07/28/25 13:07) ITCHY watermelon Allergy (Mild, Verified 07/28/25 13:07) Itching HPI Comments Details: Presenting for EMB in complaining of hair growth under her chin [facility] Medical History Febrile seizures Sleep apnea Morbid obesity Asthma Endometriosis Pulmonary embolism Surgical History History of placement of ear tubes Family History Father No problems noted. Mother No problems noted. Maternal Grandmother Breast cancer Social History Alcohol intake: never Patient Tobacco Use Status: Never used Tobacco Substance Use Type: Marijuana Female Reproductive History Menstrual Age of Menarche: 10 control method: none Office Procedures Endometrial Biopsy Details: The patient was counseled regarding the indication and benefits of endometrial sampling to rule out endometrial pathology including not limited to endometrial hyperplasia or endometrial cancer and others; The alternatives (Either do nothing vs. hysteroscopy D&C) & the risks were discussed with the patient including but not limited: pain, uterine perforation, bleeding, infection, possible injury to bladder, bowel, ureter, possible need for blood transfusion with all its possible risks. The patient verbalized understanding all questions answered and signed consent. Urine test done in the office was negative The patient was placed into the dorsal lithotomy position; a speculum was inserted in the vagina. Using aseptic technique for the procedure, the cervix was cleansed with Betadine. The anterior lip of the cervix was grasped with a single tooth tenaculum. The uterus was sounded to 7 cm with a 4 mm Pipelle was used. Tissues samples were obtained and placed in formalin, in a patient labeled container and sent to the pathology department. At the end of the procedure, there was minimal bleeding noted The patient tolerated the procedure well and was discharged in good condition with the following instructions: Nothing in the vagina until the bleeding stops. No sex until the bleeding stops, to call if any of the following occurs: fever (>100.4), flu-like symptoms, abdominal pain, heavy bleeding, four smelling vaginal discharge. The patient was instructed to schedule a Follow up appointment in 2 weeks to discuss pathology results of the biopsy and treatment options. This note was generated with a voice recognition program. Some errors may have been overlooked during the review of this note. Sometimes these errors may affect the content or meaning of a given sentence. 53474-Pemyamyguxy Biopsy Assessment & Plan Assessment & Plan (1) Abnormal uterine bleeding (AUB): Comment: History of PE on OCP Cystic areas in endometrium Code(s): N93.9 - Abnormal uterine and vaginal bleeding, unspecified Category: Medical Plan: EMB done, see procedure note (2) Hirsutism: Code(s): L68.0 - Hirsutism Category: Medical Plan: 17 hydroxyprogesterone, testosterone and 24 hour urine cortisol ordered. Instructions given the patient to schedule a 2 week follow-up appointment Orders: Orders 17 Hydroxyprogesterone Today L68.0 - Hirsutism Testosterone, Free/Total Today L68.0 - Hirsutism Cortisol, Free 24Hr Urine Today L68.0 - Hirsutism AMB Endometrial Biopsy Today N93.9 - Abnormal uterine and vaginal bleeding, unspecified Coding Level of Care Code Est Pt Level 3 (46937) Procedure Only Diagnoses Abnormal uterine bleeding (AUB) N93.9 Hirsutism L68.0 CPT Codes Endometrial Biopsy - CPT: 62672-Mfrbfcomivv Biopsy ([id number])
--- OUTSIDE RECORDS SUMMARY | 2025-07-28 15:39 | XMS_ITS | Encounter Summary ---
Author Organization [employer] Address [address] [place] [address] Care Team Providers Care Substation Design Draftsperson Name Role Phone Unavailable Primary Care Provider Unavailabl e Reason for Visit * Reason Comments Med Refill Encounter Details Date Type Department Care Team (Late st Contact Info) Description 05/04/2023 Refill [facility] [address] [place] [address] Mateo Casey MD [address] [place] [address] Social History Tobacco Use Types Packs/Day Years [...] PM EDT documented as of this encounter Plan of Treatment Not on file documented as of this encounter Visit Diagnoses Not on filedocumented in this encounter
--- OUTSIDE RECORDS SUMMARY | 2025-07-28 15:39 | XMS_ITS | Clinical Summary ---
Author Organization [facility] Address [address] [place] [address] Phone Care Team Providers Care Sanitation Officer Name Role Phone Physician, Pcp Unknown Primary Care Provider Halle vailable Allergies No known active allergies Medications methocarbamoL (ROBAXIN) 750 mg tablet Take 1 tablet (750 mg total) by mouth 4 (four) times a day for 10 days. 40 each 05/12/2025 Active dexAMETHasone (DECADRON) 6 mg tablet Take 1 tablet (6 mg total) by mouth 2 (two) times a day with meals for 5 days. 10 each 05/12/2025 Active Encounters Date Type Department Care Team Description 05/12/2025 12:28 PM EDT - 05/12/2025 3:17 PM EDT Emergency [facility] Emergency [address] [place] [address] Cale Arita, Localized edema (Primary Dx); Sciatica, left side Discharge Disposition: Home or Self Care from Last 3 Months Surgical History Surgery Date Site/Laterality Comments TONSILLECTOMY Medical History Medical History Date Comments PE (pulmonary thromboembolism) (CMS/HCC V24, CMS /HCC V28) Asthma Social History Tobacco Use Types Packs/Day Years Used Date Smoking Tobacco: Never Smokeless Tobacco: Never Alcohol Use Standard Drinks/Week Comments No 0 (1 standard drink = 0.6 oz pur e alcohol) Comments Unknown Sex and Gender Information Value Date Recorded Sex Assigned at Not on file Legal Sex Female 3:10 PM EST Gender Identity Not on file Sexual Orientation Not on file Obstetrics History Last Filed Vital Signs Vital Sign Reading Time Taken Comments Blood Pressure 134/82 05/12/2025 12:36 PM EDT Pulse 64 05/12/2025 12:36 PM EDT Temperature 36.6 C (97.9 F) 05/12/2025 12:36 PM EDT Respiratory Rate 18 05/12/2025 12:36 PM EDT Oxygen Saturation 99% 05/12/2025 12:36 PM EDT Inhaled Oxygen Concentration - - Weight 120 kg (265 lb 1.6 oz) 05/12/2025 11:41 A M EDT Height 162.6 cm (5' 4 ) 05/12/2025 11:41 AM EDT Body Mass Index 45.5 05/12/2025 11:41 AM EDT Plan of Treatment Health Maintenance Due Date Last Done Comments Hepatitis B Vaccines (1 of 3 - 19+ 3-dose series) 2014 Cervical Cancer Screening: P ap Smear 2016 HIV Screening 12/04/2023 Hepatitis C Screening 12/04/2023 Social Influencers of Health Screening 12/04/2023 Depression Screening 11/05/2024 COVID-19 Vaccine (3 - 2024-2 6 season) 2025 08/18/2021, 06/18/2021 Influenza Vaccine (#1) 2025 09/27/2016 DTaP,Tdap,and Td Vaccines (2 - Td or Tdap) 02/23/2031 02/23/2021 RSV Immunization Adult Patients (1 - 1-dose 75+ series) 2070 HIB Vaccines Aged Out No longer eligi ble based on patient's age to complete this topic HPV Vaccines Aged Out No longer eligi ble based on patient's age to complete this topic Hepatitis A Vaccines Aged Out No long er eligible based on patient's age to complete this topic IPV Vaccines Aged Out No longer eligi ble based on patient's age to complete this topic MMR Vaccines Aged Out No longer eligi ble based on patient's age to complete this topic Meningococcal ACWY Vaccine Aged Out N o longer eligible based on patient's age to complete this topic Meningococcal B Vaccine Aged Out No l onger eligible based on patient's age to complete this topic Pneumococcal Vaccine: Pediatrics (0 to 5 Years) and At-Risk Patients (6 to 49 Years) Aged Out No longer eligible b ased on patient's age to complete this topic RSV Immunization Patients Under 20 months Aged Out No longer eligible b ased on patient's age to complete this topic Varicella Vaccines Aged Out No longer eligible based on patient's age to complete this topic Procedures Procedure Name Priority Date/Time Associated Diagnosis Comments D-DIMER STAT 05/12/2025 1:42 PM EDT VAS US DUPLEX LOWER EXT VENOUS BILAT STAT 05/12/2025 12:33 PM EDT Localized edema from Last 3 Months Results * D-dimer, quantitative (05/12/2025 1:42 PM EDT) D-Dimer, Quant (D-DU) <150 <=230 ng/mL DDU LAB COAGULATION METHOD 05/12/2025 2:23 PM EDT [facility] Blood Venous blood specimen / Unknown Venipuncture / Unknown 05/12/2025 1:42 PM EDT 05/12/2025 2:07 PM EDT Narrative [facility] - 05/12/2025 2:23 PM EDT D-Dimer <230 ng/mL (D-Dimer units) is the threshold for exclusion of DVT/PE. D-Dimer may be elevated in: Critically ill, severely infected, trauma patients, DIC, acute CVA, acute IA, unstable angina, AF, old age, , and smoking. D-Dimer may be decreased with: Initiation of heparin therapy and oral anticoagulants. us Cale Arita DO LAB BLOOD ORDERABLES Final Result [facility] [address] [place] [address], * Vascular US Duplex Lower Extremity Venous Bilateral (05/12/2025 12:33 PM EDT) Anatomical Region Laterality Modality Vascular, Abdomen Ultrasound 05/12/2025 1:21 PM EDT Narrative 05/12/2025 1:21 PM EDT INDICATION: bilateral leg pain and swelling. FINDINGS: A duplex venous ultrasound was performed of both lower extremities. The common femoral, superficial femoral and popliteal veins demonstrate color-flow with augmentation and compressibility. The visualized calf veins also demonstrate color-flow. CONCLUSION: No evidence of deep vein thrombosis in either lower extremity. [id number] -------- FINAL REPORT -------- Dictated By: Jyoti Allred Dictated Date: 05/12/2025 13:21 ET Assigned Physician: Jyoti Allred Reviewed and Electronically Signed By: Jyoti Allred Signed Date: 05/12/2025 13:21 ET Workstation ID: [id number] Transcribed By: Self Edit Transcribed Date: 05/12/2025 13:21 ET Procedure Note Jyoti Allred MD - 05/12/2025 INDICATION: bilateral leg pain and swelling. FINDINGS: A duplex venous ultrasound was performed of both lowerextremities. The common femoral, superficial femoral and popliteal veinsdemonstrate color-flow with augmentation and compressibility. Thevisualized calf veins also demonstrate color-flow. CONCLUSION: No evidence of deep vein thrombosis in either lower extremity. [id number] -------- FINAL REPORT -------- Dictated By: Jyoti Allred Dictated Date: 05/12/2025 13:21 ET Assigned Physician: Jyoti Allred Reviewed and Electronically Signed By: Jyoti Allred Signed Date: 05/12/2025 13:21 ET Workstation ID: [id number] Transcribed By: Self Edit Transcribed Date: 05/12/2025 13:21 ET us Archana VILLAR CV VASCULAR PROCEDURES F inal Result from Last 3 Months Care Teams Sanitation Officer Relationship Specialty Start Date End Date Physician, Pcp Unknown PCP - General 05/12/25
--- OUTSIDE RECORDS SUMMARY | 2025-07-28 15:39 | XMS_ITS | Encounter Summary ---
Author Organization [employer] Address [address] [facility] 7[address] [place] [address] Care Team Providers Care Pharmacy Sales Representative Name Role Phone Unavailable Primary Care Provider Unavailabl e Reason for Visit * Reason Onset Date Comments New Patient Appt 05/07/2023 Encounter Details Date Type Department Care Team ([facility] st Contact Info) Description 05/07/2023 Telephone [facility] [address] [place] [address] Kya Bustillo MD [address] [place] [address] New Patient Appt Social History Tobacco Use [...] PAR Chiki Lo called pt to Offer COMPUTER TECHNOLOGY INSTRUCTOR appt. Pt demographics and insurance information were verified. Pt reports no medical conditions. Pt is not taking any medication at this time. Pt given COMPUTER TECHNOLOGY INSTRUCTOR appt with Dr. Kya Iraheta on 05/15/2023 @ 10:15 am. Pt will be sent appt reminder card and medical release form and agrees to complete and to return to medical records prior to COMPUTER TECHNOLOGY INSTRUCTOR appt. documented in this encounter Plan of Treatment Not on file documented as of this encounter Visit Diagnoses Not on filedocumented in this encounter
--- OUTSIDE RECORDS SUMMARY | 2025-07-28 15:39 | XMS_ITS | Clinical Summary ---
Author Organization [employer] Address [address] [facility] 7t [place] [address] Care Team Providers Care Director Acute Name Role Phone Unavailable Primary Care Provider Unavailabl e Allergies Active Allergy Reactions Criticality Noted Date Comments Aspirin 03/15/2023 [place] 06/28/2022 Other reaction(s): oral itching, rash, Unknown Methylphenidate 03/15/2023 Other reaction(s): rash Ranitidine 06/28/2022 Medications ketotifen (Zaditor) 0.025 % ophthalmic solution INSTILL 1 DROP INTO BOTH EYES 2 TIMES DAILY 10 mL 05/05/2023 Active Active Problems No known active problems Immunizations Immunization Administration Dates Next Due Influenza, IIV3, injectable 09/27/2016 Tdap 02/23/2021 Social History Tobacco Use Types Packs/Day Years Used Date Smoking Tobacco: Never Smokeless Tobacco: Never Tobacco Cessation:Counseling Given: Not Answered Housing Stability Answer Date Recorded What is your housing situation today? I have ricardo suh 09/10/[address] you li ve. Do you have problems with any of the following? None of the above 09/10/2023 Food Insecurity Answer Date Recorded Within the past 12 months, y ou worried that your food would run out before you got money to buy more: Never True 09/10/2023 Within the past 12 months,th e food you bought just didn't last and you didn't have enough money to get more: Never True 04/2023 Transportation Answer Date Recorded In the past 12 months, has l ack of transportation kept you from medical appts, meetings, work or from getting things needed for daily living? No 09/10/2023 Utilities Answer Date Recorded In the past 12 months, has t he electric, gas, oil or water company threatened to shut off services in your home? No 09/10/2023 Comments Unknown Sex and Gender Information Value Date Recorded Sex Assigned at Female 09/04/2022 10:14 AM EDT Legal Sex Female 10:14 AM EDT Gender Identity Female 09/04/2022 10:14 AM EDT Sexual Orientation Straight 09/04/2022 10 :14 AM EDT Last Filed Vital Signs Vital Sign Reading Time Taken Comments Blood Pressure 137/93 04/12/2023 1:58 PM EDT Pulse 100 04/12/2023 1:58 PM EDT Temperature 36.6 C (97.8 F) 04/12/2023 1:58 PM EDT Respiratory Rate 16 04/12/2023 1:58 PM EDT Oxygen Saturation 97% 04/12/2023 1:58 PM EDT Inhaled Oxygen Concentration - - Weight 127 kg (280 lb 6.4 oz) 04/12/2023 1:58 PM EDT Height 157.5 cm (5' 2 ) 07/25/2022 12:09 AM EDT Body Mass Index 51.29 07/25/2022 12:09 AM EDT Plan of Treatment Health Maintenance Due Date Last Done Comments Dental Oral Exam 1995 Dental Prophylaxis 1995 Dental X-Ray: Full Mouth 1995 Depression Screening 1995 HIV Screening 1995 Lipid Panel 1995 Disability Screening 1995 Alcohol/Substance Use Screening 2007 Family Planning (PISQ) 2010 HPV Vaccines (1 - 3-dose series) 2010 Hepatitis C Screening 2013 Hepatitis B Vaccines (1 of 3 - 19+ 3-dose series) 2014 Pap Smear 2016 Tobacco Screening 06/14/2024 06/14/2023 Dental X-Ray: Bitewings 06/15/2024 06/14/20, 03/15/2023 SDOH Screening 06/21/2024 06/21/2023 COVID-19 Vaccine (3 - 2024-2 6 season) 2025 08/18/2021, 06/18/2021 Influenza Vaccine (#1) 2025 09/27/2016 Cervical Cancer Screening 2025 HPV/Cotest 2025 DTaP/Tdap/Td Vaccines (2 - T d or Tdap) 02/23/2031 02/23/2021 Zoster Vaccines (1 of 2) 2045 RSV Patients and Patients Aged 60 years or older (1 - 1-dose 75+ series) 2070 HIB [...] patient's age to complete this topic Meningococcal Vaccine Aged Out No wilner kaylen eligible based on patient's age to complete this topic Pneumococcal Vaccine: Pediatrics (0 to 5 Years) and At-Risk Patients (6 to 49) Years Aged Out No longer eligible b ased on patient's age to complete this topic RSV under 20 months Aged Out No longe r eligible based on patient's age to complete this topic Rotavirus Vaccines Aged Out No longer eligible based on patient's age to complete this topic Procedures Procedure Name Priority Date/Time Associated Diagnosis Comments BITEWING - SINGLE RADIOGRAPHIC IMAGE Routine 06/14/2023 2:45 PM EDT Full coverage crown needed for root canal-treated tooth from Last 3 Months or Most Recently Relevant to Health Maintenance Insurance [facility] C3 HSN PARTIAL DENTAL-[facility] MEDICAID STAND ADULT
== END 2025-07-28 13:24 | disposition home or self-care (01) ==
LOC: HO.HWS 12:45
PROVIDERS: PCP Internal Medicine; Visit Provider Obstetrics & Gynecology
DX: L68.0 Hirsutism (principal); N93.9 Abnormal uterine and vaginal bleeding, unspecified
CPT/HCPCS: 58100; 99213

== ENCOUNTER 2025-07-28 13:47 | Outpatient (REF) | payer MEDICAID, SELFPAY | END 2025-07-28 13:48 | disposition home or self-care (01) | LOC: HO.LNP 13:47 | PROVIDERS: Visit Provider Obstetrics & Gynecology | DX: N93.9 Abnormal uterine and vaginal bleeding, unspecified (principal) | CPT/HCPCS: 88305 ==

== ENCOUNTER 2025-08-04 10:35 | Outpatient (REF) | payer MEDICAID, SELFPAY ==
--- OUTSIDE RECORDS SUMMARY | 2025-08-04 11:52 | XMS_ITS | Encounter Summary ---
Author Organization [employer] Address [address] [facility] 7[address] [place] [address] Care Team Providers Care Senior Industrial Engineer Name Role Phone Unavailable Primary Care Provider Unavailabl e Reason for Visit * Reason Comments Med Refill Encounter Details Date Type Department Care Team (Late st Contact Info) Description 05/04/2023 Refill [facility] [address] [place] [address] Mateo Casey MD [address] [place] [address] Social History Tobacco Use Types Packs/Day Years [...]
--- OUTSIDE RECORDS SUMMARY | 2025-08-04 11:52 | XMS_ITS | Clinical Summary ---
Author Organization [employer] Address [address] [facility] 7[address] [place] [address] Care Team Providers Care Propeller Driven Airplane Mechanic Name Role Phone Unavailable Primary Care Provider [...] Most Recently Relevant to Health Maintenance Insurance [facility] C3 HSN PARTIAL DENTAL-[facility] MEDICAID STAND ADULT
--- OUTSIDE RECORDS SUMMARY | 2025-08-04 11:52 | XMS_ITS | Encounter Summary ---
Author Organization [employer] Address [address] [facility] [address] [place] [address] Care Team Providers Care Filter Machine Operator Name Role Phone Unavailable Primary Care Provider Unavailabl e Reason for Visit * Reason Onset Date Comments New Patient Appt 05/07/2023 Encounter Details Date Type Department Care Team ([facility] st Contact Info) Description 05/07/2023 Telephone [facility] [address] [place] [address] Kya Bustillo MD [address] [place] [address] New Patient Appt Social History Tobacco Use [...] PAR Chiki Lo called pt to Offer PSYCHOLOGISTS appt. Pt demographics and insurance information were verified. Pt reports no medical conditions. Pt is not taking any medication at this time. Pt given PSYCHOLOGISTS appt with Dr. Kya Iraheta on 05/15/2023 @ 10:15 am. Pt will be sent appt reminder card and medical release form and agrees to complete and to return to medical records prior to PSYCHOLOGISTS appt. documented in this encounter Plan of Treatment Not on file documented as of this encounter Visit Diagnoses Not on filedocumented in this encounter
--- OUTSIDE RECORDS SUMMARY | 2025-08-04 11:52 | XMS_ITS | Clinical Summary ---
Author Organization [facility] Address [address] [place] [address] Phone Care Team Providers Care Freight Broker Name Role Phone Physician, Pcp Unknown Primary [...] EDT - 05/12/2025 3:17 PM EDT Emergency [facility] [address] [place] [address] Cale Arita, Localized edema (Primary [...] Cervical Cancer Screening: P ap Smear 2016 HPV Vaccines (1 - 3-dose SCD M series) 2022 HIV Screening 12/04/2023 Hepatitis C Screening 12/04/2023 [...] LAB COAGULATION METHOD 05/12/2025 2:23 PM EDT [facility] Blood Venous blood specimen / Unknown Venipuncture / Unknown 05/12/2025 1:42 PM EDT 05/12/2025 2:07 PM EDT Narrative [facility] - 05/12/2025 2:23 PM EDT D-Dimer <230 ng/mL (D-Dimer units) is the threshold for exclusion of DVT/PE. D-Dimer may be elevated in: Critically ill, severely infected, trauma patients, DIC, acute CVA, acute AL, unstable angina, AF, old age, , and smoking. D-Dimer may be decreased with: Initiation of heparin therapy and oral anticoagulants. us Cale Arita DO LAB BLOOD ORDERABLES Final Result [facility] [address] [place] [address], * Vascular US Duplex Lower Extremity Venous [...] deep vein thrombosis in either lower extremity. [id number] -------- FINAL REPORT -------- Dictated By: Jyoti Allred Dictated Date: 05/12/2025 13:21 ET Assigned Physician: Jyoti Allred Reviewed and Electronically Signed By: Jyoti Allred Signed Date: 05/12/2025 13:21 ET Workstation ID: [id number] Transcribed By: Self Edit Transcribed Date: 05/12/2025 13:21 ET Procedure Note Jyoti Allred MD - 05/12/2025 INDICATION: bilateral leg pain and swelling. FINDINGS: A duplex venous ultrasound was performed of both lowerextremities. The common femoral, superficial femoral and popliteal veinsdemonstrate color-flow with augmentation and compressibility. Thevisualized calf veins also demonstrate color-flow. CONCLUSION: No evidence of deep vein thrombosis in either lower extremity. [id number] -------- FINAL REPORT -------- Dictated By: Jyoti Allred Dictated Date: 05/12/2025 13:21 ET Assigned Physician: Jyoti Allred Reviewed and Electronically Signed By: Jyoti Allred Signed Date: 05/12/2025 13:21 ET Workstation ID: [id number] Transcribed By: Self Edit Transcribed Date: 05/12/2025 13:21 ET us Archana VILLAR CV VASCULAR PROCEDURES F inal Result from Last 3 Months Care Teams Freight Broker Relationship Specialty Start Date End Date Physician, Pcp Unknown PCP - General 05/12/25
[2025-08-04 11:55] LABS: Hematocrit 41.6 % (37.0-47.0); Hemoglobin 14.3 g/dl (12.0-16.0); Mean Corpuscular HGB Conc 34.4 g/dl (31.0-35.0); Mean Corpuscular Hemoglobin 29.9 pg (27.0-33.0); Mean Corpuscular Volume 86.8 fL (80.0-98.0); NRBC Abs Auto 0.000 X10*3/uL (0.0-0.012); NRBC Pct Auto 0.0 /100WBC (0.0-0.2); Platelet Count 234 X10*3/uL (160-400); Red Blood Count 4.79 X10*6/uL (4.20-5.50); White Blood Count 8.4 X10*3/uL (4.8-10.8)
== END 2025-08-04 10:36 | disposition home or self-care (01) ==
LOC: HO.LAB 10:35
PROVIDERS: Visit Provider Obstetrics & Gynecology
DX: N93.9 Abnormal uterine and vaginal bleeding, unspecified (principal)
CPT/HCPCS: 36415; 85027